=== PATIENT | female | born 1950 | race Caucasian/White ===

== ENCOUNTER 2020-01-01 11:38 | Outpatient (REF) | payer MEDICARE, SELFPAY | END 2020-01-01 11:39 | disposition home or self-care (01) | LOC: HO.LAB 11:38 | PROVIDERS: PCP Internal Medicine; Visit Provider Internal Medicine | DX: Z20.828 Contact with and (suspected) exposure to other viral communicable diseases (principal) | CPT/HCPCS: C9803; U0003 ==

== ENCOUNTER 2022-09-30 12:40 | Outpatient (AMB) | payer MEDICARE, SELFPAY ==
--- NOTE | 2022-09-30 12:57 | MHC.OFFVIS ---
Intake Vital Signs 09/30/22 12:58 Height 5 ft 2 in Weight 146 lb BMI 26.7 BP 124/70 Blood Pressure Location Lt brachial Position Sitting Pulse 84 Pulse Source Pulse Oximeter Pulse Oximetry (%) 96 Oxygen Delivery Method Room Air Intake Visit Reasons: COPD Supervisor Maintenance Required: No Allergies almond [ALMOND] Allergy (Unknown, Unverified 09/30/22 13:01) POSITIVE ALLERGY TEST CLASS 3 coconut [COCONUT] Allergy (Unknown, Unverified 09/30/22 13:01) POSITIVE ALLERGY TEST CLASS 3 nickel [NICKEL] Allergy (Unknown, Unverified 09/30/22 13:01) POSITIVE ALLERGY TEST peanut [PEANUT] Allergy (Unknown, Unverified 09/30/22 13:01) POSITIVE ALLERGY TEST CLASS 3 pecan nut [PECAN] Allergy (Unknown, Unverified 09/30/22 13:01) POSITIVE ALLERGY TEST CLASS 2 sesame seed [SESAME SEED] Allergy (Unknown, Unverified 09/30/22 13:01) POSITIVE ALLERGY TEST CLASS 3 PFSH Medical History (Updated 10/02/22 @ 20:17 by Stephen Dunn MD) Asthma Asthma-COPD overlap syndrome Chronic allergic rhinitis Glaucoma Social History (Updated 09/30/22 @ 13:02 by CASSIE Velazquez) Patient Tobacco Use Status: Former Tobacco user Tobacco use type: Cigarette Years Smoked: 20+ Years Review of Systems Const Denies fever(s) Eyes Denies change in vision ENT Reports nasal congestion Card Denies chest pain and Reports dyspnea on exertion Resp Reports cough, Reports dyspnea on exertion and Reports wheezing GI Denies abdominal pain Musc Reports no additional complaints Skin/Breast Denies rash Neuro Reports no additional complaints Endo Denies flushing Daniel/Lymph Denies lymphadenopathy Aller/Immun Reports wheezing Physical Exam Vital Signs: Last Vital Signs Pulse 84 09/30/22 12:58 BP 124/70 09/30/22 12:58 Pulse Ox 96 09/30/22 12:58 Oxygen Delivery Method Room Air 09/30/22 12:58 BMI result Body Mass Index 26.7 Const General: comfortable HEENT Head: Yes normocephalic Neck Neck: Yes supple Chest Chest palpation & inspection: normal inspection of the chest Resp Effort & Inspection: normal respiratory effort and prolonged expiratory phase Auscultation: wheezes and diminished lung sounds Cardio Rate: regular rate Rhythm: regular rhythm Heart sounds: S1 normal heart sound present and S2 normal heart sound present GI Palpation (GI): Soft to palpation Skin General skin exam: no rashes or lesions noted Extrem General: Yes no clubbing, cyanosis or edema Assessment & Plan Assessment & Plan (1) Asthma-COPD overlap syndrome: Code(s): J44.9 - Chronic obstructive pulmonary disease, unspecified (2) Asthma: Code(s): J45.909 - Unspecified asthma, uncomplicated (3) Chronic allergic rhinitis: Code(s): J30.9 - Allergic rhinitis, unspecified (4) Screening for lung cancer: Code(s): Z12.2 - Encounter for screening for malignant neoplasm of respiratory organs (5) Glaucoma: Code(s): H40.9 - Unspecified glaucoma Plan continue Wixela no LAMA due to Glaucome Bloodwork/allergy testing Add BUdesonide Add Xopenex Nebulizer provided PFTs referral to LDCT F/U 6-8 weeks Orders: Orders Rast Allergen 09/30/22 J30.9 - Allergic rhinitis, unspecified, J45.909 - Unspecified asthma, uncomplicated Complete Blood Count Auto Diff 09/30/22 J30.9 - Allergic rhinitis, unspecified, J45.909 - Unspecified asthma, uncomplicated Basic Metabolic Panel 09/30/22 J30.9 - Allergic rhinitis, unspecified, J45.909 - Unspecified asthma, uncomplicated Immunoglobulin E 09/30/22 J30.9 - Allergic rhinitis, unspecified, J45.909 - Unspecified asthma, uncomplicated Erythrocyte Sedimentation Rate 09/30/22 J30.9 - Allergic rhinitis, unspecified, J45.909 - Unspecified asthma, uncomplicated Referrals Thoracic Surgery Referral Z12.2 - Encounter for screening for malignant neoplasm of respiratory organs Medications: New budesonide 0.5 mg (2 mL) inhalation BID 30 days 120 mL 11RF J44.9 - Chronic obstructive pulmonary disease, unspecified levalbuterol HCl 1.25 mg (3 mL) inhalation BID 30 days 180 mL 0RF J44.9 - Chronic obstructive pulmonary disease, unspecified Coding Level of Care Code New Pt Level 4 (18018) Diagnoses Asthma-COPD overlap syndrome J44.9 Asthma J45.909 Chronic allergic rhinitis J30.9 Screening for lung cancer Z12.2 Glaucoma H40.9 Time Spent (min) 45
[2022-09-30 12:58] VITALS: BP 124/70; PULSE 84; O2SAT 96; BMI 26.7
== END 2022-09-30 13:37 | disposition home or self-care (01) ==
PROVIDERS: PCP Internal Medicine; Visit Provider Hospitalist
DX: J44.9 Chronic obstructive pulmonary disease, unspecified (principal); Z12.2 Encounter for screening for malignant neoplasm of respiratory organs; H40.9 Unspecified glaucoma
CPT/HCPCS: 99204

== ENCOUNTER 2022-09-30 12:40 | Outpatient (REF) | payer MEDICARE, SELFPAY ==
[2022-09-30 13:49] LABS: MANUAL DIFF FLAG NO
[2022-09-30 14:22] LABS: Basophils Percent Auto 0.3 % (0-2); Eosinophils Absolute Auto 0.1 X10*3/uL (0.0-0.4); Eosinophils Percent Auto 1.6 % (0-4); Hematocrit 38.5 % (37.0-47.0); Hemoglobin 11.9 g/dl (12.0-16.0); Imm Gran Abs Auto 0.03 X10*3/uL (0.00-0.03); Imm Gran Pct Auto 0.3 % (0.0-0.4); Lymphocytes Absolute Auto 1.9 X10*3/uL (1.2-4.9); Mean Corpuscular HGB Conc 30.9 g/dl (31.0-35.0); Mean Corpuscular Hemoglobin 24.3 pg (27.0-33.0); Mean Corpuscular Volume 78.6 fL (80.0-98.0); Mean Platelet Volume 9.9 fL (9.4-12.3); Monocytes Absolute Auto 0.5 X10*3/uL (0.1-1.2); Monocytes Percent Auto 5.2 % (2-11); Neutrophils Percent Auto 70.6 % (45-73); Platelet Count 331 X10*3/uL (160-400); Red Cell Distribution Width 17.4 % (11.0-16.0); White Blood Count 8.6 X10*3/uL (4.8-10.8)
[2022-09-30 14:59] LABS: Anion Gap 13 (12-20); Blood Urea Nitrogen 9 mg/dL (9-16); Calcium 9.8 mg/dL (8.4-10.2); Carbon Dioxide 23 mmol/L (22-29); Chloride 108 mmol/L (96-108); Estimated Glomerular Filt Rate > 60; Glucose Random 105 mg/dL (60-115); Potassium 3.4 mmol/L (3.3-5.1); Sodium 141 mmol/L (135-145)
[2022-09-30 15:11] LABS: Erythrocyte Sedimentation Rate 44 MM/HR (0-20)
[2022-10-01 10:04] LABS: Immunoglobulin E 267 kU/L (<OR=114)
== END 2022-09-30 12:41 | disposition home or self-care (01) ==
LOC: HO.LAB 12:40
PROVIDERS: PCP Internal Medicine; Visit Provider Hospitalist
DX: J45.909 Unspecified asthma, uncomplicated (principal); Z91.09 Other allergy status, other than to drugs and biological substances
CPT/HCPCS: 36415; 80048; 82785; 85025; 85652; 86003; 99202

== ENCOUNTER 2022-12-27 09:11 | Outpatient (REF) | payer OTHER, SELFPAY ==
--- NOTE | 2022-12-27 | PFT_ITS ---
Forced vital capacity 85%, FEV1 is 64%. FEV1/FVC ratio is 59. PDI84-46 21% and MVV 52%. Post bronchodilator therapy, there is significant improvement in LRY24-22, but not in other parameters. Total lung capacity 78%, and residual volume is 76%. Diffusion capacity is 72%. CONCLUSION: Restrictive pulmonary disorder, mild. Obstructive airway disorder, mainly involving the small airways, moderately severe. Partial reversibility after bronchodilator therapy is noted. These findings are suggestive of asthma/COPD syndrome. Clinical correlation is recommended. Dena Molina MD MSB/MODL / [id number]
== END 2022-12-27 09:12 | disposition home or self-care (01) ==
LOC: HO.RESP 09:11
PROVIDERS: PCP Internal Medicine; Visit Provider Hospitalist
DX: J45.909 Unspecified asthma, uncomplicated (principal)
CPT/HCPCS: 94010; 94727; 94729

== ENCOUNTER → 2022-12-27 10:29 | Outpatient (BNV) | payer OTHER, SELFPAY | PROVIDERS: PCP Internal Medicine; Visit Provider Internal Medicine | DX: J45.909 Unspecified asthma, uncomplicated (principal) | CPT/HCPCS: 94060; 94727; 94729 ==

== ENCOUNTER 2022-12-29 09:20 | Outpatient (AMB) | payer OTHER, SELFPAY ==
--- NOTE | 2022-12-29 09:22 | A.OFFVIS_ITS ---
Intake Vital Signs 12/29/22 09:26 Height 5 ft 2 in Weight 145 lb 15.136 oz BMI 26.7 Pulse 75 Pulse Source Pulse Oximeter Pulse Oximetry (%) 97 Oxygen Delivery Method Room Air Intake Visit Reasons: PFT Results Computer Numeric Control Setter Required: No Allergies almond [ALMOND] Allergy (Unknown, Unverified 12/29/22 09:24) POSITIVE ALLERGY TEST CLASS 3 coconut [COCONUT] Allergy (Unknown, Unverified 12/29/22:24) POSITIVE ALLERGY TEST CLASS 3 nickel [NICKEL] Allergy (Unknown, Unverified 12/29/22:24) POSITIVE ALLERGY TEST peanut [PEANUT] Allergy (Unknown, Unverified 12/29/22:24) POSITIVE ALLERGY TEST CLASS 3 pecan nut [PECAN] Allergy (Unknown, Unverified 12/29/22:) POSITIVE ALLERGY TEST CLASS 2 sesame seed [SESAME SEED] Allergy (Unknown, Unverified 12/29/22:) POSITIVE ALLERGY TEST CLASS 3 amoxicillin Allergy (Verified 12/29/22:) Swelling HPI HPI Comments History of Present Illness Details The patient is a 71 year woman with known history of asthma and also tobacco dependency in the past. The patient has significant allergies. She has been following closely with allergy immunology. The patient has significant allergies to foods in addition to environmental allergies. She has been on respiratory therapy. The patient continues to be symptomatic with frequent shortness of breath chest tightness and wheezing. Moderate severity. Recently the patient did have a reaction. She was sent to the hospital for further care. Current the patient has been Wixela. She uses a rescue inhaler on a daily basis. She is feeling well today although she still has wheezing and chest tightness. The patient is a nebulizer. Will start her on nebulized therapy. With a history of glaucoma will can hold off on long-acting muscarinic antagonist until more information is gathered from the datastage developer. The patient is a former smoker. She quit smoking between 5 to 8 years ago. She is a candidate for the lung cancer screening program. Will go ahead and refer her at this time. 12/29/2022 the patient is here for pulmo nary follow-up visit. The patient has been feeling better. She has been using the combination inhaler and also has been using the budesonide. although she has been feeling better he still complains of daily episodes of wheezing and chest tightness. She does use her rescue inhaler on a daily basis for that reason. She did have her pulmonary function studies demonstrating significant small airways disease consistent with severe asthma and also has a mild obstruction also consistent with her uncontrolled asthma. 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 Still has significant asthma phenotype. Her allergy testing was very abnormal with an elevated IgE and significant allergies to both environmental allergens and foods. based on her uncontrolled asthma on maximum respiratory therapy will go ahead and recommend she start Xolair. The patient already has not EpiPen she knows how to use it. Based on her weight and her IgE level will go ahead and start with 300 mg once a month. The patient may need to increase that to every 2 weeks if she continues to be symptomatic however. She did not attend the lung cancer screening visit. Her daughter had gotten sick and she could not bring her to the appointment. Will go ahead and reschedule that appointment she can follow-up and get her lung cancer screening done. Will follow-up in 3-4 months to assess her progress on the biologic therapy. [facility] Medical History (Updated 12/29/22 @ 21:22 by Stephen Dunn MD) Aortic valve stenosis Hypertension Hyperlipidemia Asthma-COPD overlap syndrome Asthma Chronic allergic rhinitis Personal history of nicotine dependence GERD (gastroesophageal reflux disease) NITIN (iron deficiency anemia) Thrombocytopenia Vitamin B 12 deficiency Vitamin D deficiency Fatty liver Hiatal hernia Multiple food allergies Osteopenia (~2005) Glaucoma Surgical History (Updated 12/12/22 @ 12:45 by Navya Vyas PA-C) History of colonoscopy Family History (Updated 12/19/22 @ 11:03 by Navya Vyas PA-C) Sister Breast cancer Father No problems noted. Mother No problems noted. Social History (Updated 09/30/22 @ 13:02 by CASSIE Velazquez) Patient Tobacco Use Status: Former Tobacco user Tobacco use type: Cigarette Years Smoked: 20+ Years Review of Systems Const Denies fever(s) Eyes Denies change in vision ENT Reports nasal congestion Card Denies chest pain and Reports dyspnea on exertion Resp Reports cough, Reports dyspnea on exertion and Reports wheezing GI Denies abdominal pain Musc Reports no additional complaints Skin/Breast Denies rash Neuro Reports no additional complaints Endo Denies flushing Daniel/Lymph Denies lymphadenopathy Aller/Immun Reports wheezing Physical Exam Vital Signs: Last Vital Signs Pulse 75 12/29/22 09:26 Pulse Ox 97 12/29/22 09:26 Oxygen Delivery Method Room Air 12/29/22 09:26 BMI result Body Mass Index 26.7 Const General: comfortable HEENT Head: Yes normocephalic Neck Neck: Yes supple Chest Chest palpation & inspection: normal inspection of the chest Resp Effort & Inspection: normal respiratory effort and prolonged expiratory phase Auscultation: wheezes and diminished lung sounds Cardio Rate: regular rate Rhythm: regular rhythm Heart sounds: S1 normal heart sound present and S2 normal heart sound present GI Palpation (GI): Soft to palpation Skin General skin exam: no rashes or lesions noted Extrem General: Yes no clubbing, cyanosis or edema Assessment & Plan Assessment & Plan (1) Asthma-COPD overlap syndrome: Code(s): J44.9 - Chronic obstructive pulmonary disease, unspecified (2) Asthma: Code(s): J45.909 - Unspecified asthma, uncomplicated Qualifiers: Asthma severity: severe Asthma persistence: persistent Asthma complication type: uncomplicated Qualified Code(s): J45.50 - Severe persistent asthma, uncomplicated (3) Chronic allergic rhinitis: Code(s): J30.9 - Allergic rhinitis, unspecified (4) Glaucoma: Code(s): H40.9 - Unspecified glaucoma Plan continue Wixela no LAMA due to Glaucome start Xolair 300mg [id number] BUdesonide continue Add Xopenex Nebulizer provided referral to LDCT F/U 3-4 months Coding Level of Care Code Est Pt Level 4 (60920) Diagnoses Asthma-COPD overlap syndrome J44.9 Severe persistent asthma without complication J45.50 Asthma severity: severe Asthma persistence: persistent Asthma complication type: uncomplicated Chronic allergic rhinitis J30.9 Glaucoma H40.9 Time Spent (min) 17
[2022-12-29 09:26] VITALS: PULSE 75; O2SAT 97; BMI 26.7
== END 2022-12-29 09:50 | disposition home or self-care (01) ==
PROVIDERS: PCP Internal Medicine; Visit Provider Hospitalist
DX: J44.9 Chronic obstructive pulmonary disease, unspecified (principal); J45.50 Severe persistent asthma, uncomplicated; J30.9 Allergic rhinitis, unspecified; H40.9 Unspecified glaucoma
CPT/HCPCS: 99214

== ENCOUNTER → 2022-12-29 09:20 | Outpatient (BNVA) | payer OTHER, SELFPAY | PROVIDERS: PCP Internal Medicine; Visit Provider Hospitalist | DX: J44.9 Chronic obstructive pulmonary disease, unspecified (principal); J45.50 Severe persistent asthma, uncomplicated; J30.9 Allergic rhinitis, unspecified; H40.9 Unspecified glaucoma | CPT/HCPCS: 99212 ==

== ENCOUNTER 2023-01-20 10:08 | Outpatient (AMB) | payer OTHER, SELFPAY ==
--- NOTE | 2023-01-20 10:23 | MHC.OFFVIS ---
Intake Intake Visit Reasons: LDCT Allergies almond [ALMOND] Allergy (Unknown, Unverified 12/29/22 09:24) POSITIVE ALLERGY TEST CLASS 3 coconut [COCONUT] Allergy (Unknown, Unverified 12/29/22 09:24) POSITIVE ALLERGY TEST CLASS 3 nickel [NICKEL] Allergy (Unknown, Unverified 12/29/22 09:24) POSITIVE ALLERGY TEST peanut [PEANUT] Allergy (Unknown, Unverified 12/29/22 09:24) POSITIVE ALLERGY TEST CLASS 3 pecan nut [PECAN] Allergy (Unknown, Unverified 12/29/22 09:24) POSITIVE ALLERGY TEST CLASS 2 sesame seed [SESAME SEED] Allergy (Unknown, Unverified 12/29/22 09:24) POSITIVE ALLERGY TEST CLASS 3 amoxicillin Allergy (Verified 12/29/22 09:24) Swelling HPI HPI Comments History of Present Illness Details Azul is a pleasant 72 year old female, former smoker with a 37+ PYH, quit 5 years ago. Patient has smoked since age 14 for 30 years at 1-1.5 ppd Denies marijuana use. Denies exposure to chemicals or substances like asbestos. Reports second hand smoke exposure. Reports sister had a history of lung cancer. Denies personal history of cancers. Denies chest CT in last year. Denies recent travel outside the [place]. Reports testing positive for COVID in 2020. Admits receiving COVID Vaccine x 2. Denies fever, chills, chest pain, new cough, hemoptysis or unintentional weight loss. Lung Cancer Screening Questionnaire reviewed with patient by provider. Shared Decision Making Completed. Discussed in detail with patient, the risk versus benefit of LDCT screening. Patient in agreement of proceeding with scan. [facility] Medical History (Updated 12/29/22 @ 21:22 by Stephen Dunn MD) Aortic valve stenosis Hypertension Hyperlipidemia Asthma-COPD overlap syndrome Asthma Chronic allergic rhinitis Personal history of nicotine dependence GERD (gastroesophageal reflux disease) NITIN (iron deficiency anemia) Thrombocytopenia Vitamin B 12 deficiency Vitamin D deficiency Fatty liver Hiatal hernia Multiple food allergies Osteopenia (~2005) Glaucoma Surgical History (Updated 12/12/22 @ 12:45 by Navya Vyas PA-C) History of colonoscopy Family History (Updated 01/20/23 @ 12:03 by Noreen Vo NP) Sister Breast cancer Father No problems noted. Mother No problems noted. Sister Lung cancer Social History (Updated 01/20/23 @ 12:04 by Noreen Vo NP) Patient Tobacco Use Status: Former Tobacco user Quit Date: 5 years ago Tobacco use type: Cigarette Cigarette Packs Per Day: 1.25 Years Smoked: 30 Assessment & Plan Assessment & Plan (1) Personal history of nicotine dependence: Comment: (former smoker) Code(s): Z87.891 - Personal history of nicotine dependence Plan Shared decision-making visit completed today in office. This patient meets criteria for LDCT for lung cancer screening purposes and is asymptomatic. Offered smoking cessation. Patient has been scheduled for a low dose chest CT for screening purposes at [facility]. We discussed how the results will be obtained depending on CT findings. RADS 1 and RADS 2 will receive a letter with results and will follow up for annual LDCT. Patient informed they will be contacted at later date to schedule upcoming LDCT scan. RADS 3 and RADS 4 will receive a telephone call, or an office visit after reviewing case at our Lung Cancer Conference to determine when the next LDCT will be scheduled or further interventions that may be needed. Discussed importance of screening program and compliance with yearly LDCT scan as scheduled. Risks, benefits, and alternatives were discussed in detail and patient agrees to proceed. Risks discussed include but are not limited to: radiation exposure and possibility of additional intervention for benign disease. Benefits include detection of lung cancer at an early stage. A copy of today's visit and LDCT results will be sent to patient's PCP. Incidental findings on LDCT are PCP's responsibility. If there are incidental findings, our office will ensure that PCP office is aware of these findings. All questions were answered and patient is in agreement of plan. Coding Level of Care Code Lung Cancer Screening G0296 Diagnoses Personal history of nicotine dependence Z87.891
== END 2023-01-20 10:32 | disposition home or self-care (01) ==
PROVIDERS: PCP Internal Medicine; Visit Provider Nurse Practitioner Family
DX: Z87.891 Personal history of nicotine dependence (principal)
CPT/HCPCS: G0296

== ENCOUNTER 2023-01-20 10:34 | Outpatient (REF) | payer OTHER, SELFPAY ==
--- NOTE | ~2023-01-20 | CT_ITS ---
EXAMINATION: CT CHEST LOW-DOSE SCREENING WITHOUT CONTRAST HISTORY: Asymptomatic patient meeting criteria for lung screening. PATIENT PACK-YEAR HISTORY: 30 Current Smoker: No If former smoker, years since quittin COMPARISON: None available. TECHNIQUE: Multidetector volumetric non-contrast CT imaging of the chest was performed using low dose screening CT technique. Axial thin section 0.625 mm reformations in soft tissue and lung windows were obtained. Sagittal and coronal reformations were obtained. Axial MIP images were also created and reviewed. RECONSTRUCTED WIDTH: 1.25 mm x 1.25 mm TOTAL EXAM DLP: 42 mGy-cm CTDIvol: 1.05 L mGy FINDINGS: LUNGS: Mild centrilobular emphysema. No suspicious pulmonary nodule. No focal consolidation. Central airways are patent. PLEURA: No pleural effusion. LYMPH NODES: No bulky mediastinal, hilar or axillary lymphadenopathy. MEDIASTINUM: Great vessels are of normal caliber. Heart size is normal. No pericardial effusion. CORONARY ARTERY CALCIFICATIONS: Moderate. CHEST WALL/BREASTS: No acute abnormality. UPPER ABDOMEN: This study was performed without contrast and with lower than standard dose, reducing the sensitivity for detection of small lesions in the upper abdomen. Large hiatal hernia. OSSEOUS STRUCTURES: No destructive bone lesions. CT/CT lung screening IMPRESSION: No suspicious pulmonary nodule. LUNG-RADS CATEGORY ASSESSMENT: 1. Negative. No nodules or definitely benign nodules. Continue annual screening with low-dose CT in 12 months. Probability of malignancy less than 1%. INCIDENTAL FINDINGS (S CATEGORY): Finding: No incidental findings. Significance category: Normal or normal variant. RECOMMENDATION: Low dose lung CT. overall in 1 year. Visual estimate of coronary calcified plaque burden: Moderate. However, this exam cannot replace a dedicated cardiac CT calcium score for accurate assessment. LUNG-RADS CATEGORY: 1 -- NEGATIVE
== END 2023-01-20 10:35 | disposition home or self-care (01) ==
LOC: HO.CT 10:34
PROVIDERS: PCP Internal Medicine; Visit Provider Physician Assistant Medical
DX: Z12.2 Encounter for screening for malignant neoplasm of respiratory organs (principal); Z87.891 Personal history of nicotine dependence
CPT/HCPCS: 71271; G0296

== ENCOUNTER 2023-02-15 09:07 | Outpatient (REF) | payer OTHER, SELFPAY | END 2023-02-15 09:08 | disposition home or self-care (01) | LOC: HO.MDS 09:07 | PROVIDERS: Visit Provider Hospitalist | DX: J45.50 Severe persistent asthma, uncomplicated (principal) | CPT/HCPCS: 96372 ==

== ENCOUNTER 2023-03-15 08:57 | Outpatient (REF) | payer OTHER, SELFPAY | END 2023-03-15 08:58 | disposition home or self-care (01) | LOC: HO.MDS 08:57 | PROVIDERS: Visit Provider Hospitalist | DX: J45.50 Severe persistent asthma, uncomplicated (principal) | CPT/HCPCS: 96372; J2357 ==

== ENCOUNTER 2023-03-31 09:48 | Outpatient (AMB) | payer OTHER, SELFPAY ==
[2023-03-31 09:51] VITALS: BP 138/58; PULSE 72; O2SAT 96; BMI 27.0
--- NOTE | 2023-03-31 09:51 | MHC.OFFVIS ---
Intake Vital Signs 03/31/23 09:51 Height 5 ft 2 in Weight 147 lb 11.355 oz BMI 27.0 BP 138/58 L Blood Pressure Location Rt brachial Position Sitting Pulse 72 Pulse Source Pulse Oximeter Pulse Oximetry (%) 96 Oxygen Delivery Method Room Air Intake Visit Reasons: COPD Intake Note: pt is here for follow up and states she is feeling fine. pt did have 2nd xolair injection and woke up the next day lip swollen, went to ER and sent home, back the next day for full face swelling. not sure if related. Solids Control Technician Required: No Allergies almond [ALMOND] Allergy (Unknown, Unverified 03/31/23 09:55) POSITIVE ALLERGY TEST CLASS 3 coconut [COCONUT] Allergy (Unknown, Unverified 03/31/23 09:55) POSITIVE ALLERGY TEST CLASS 3 nickel [NICKEL] Allergy (Unknown, Unverified 03/31/23 09:55) POSITIVE ALLERGY TEST peanut [PEANUT] Allergy (Unknown, Unverified 03/31/23 09:55) POSITIVE ALLERGY TEST CLASS 3 pecan nut [PECAN] Allergy (Unknown, Unverified 03/31/23 09:55) POSITIVE ALLERGY TEST CLASS 2 sesame seed [SESAME SEED] Allergy (Unknown, Unverified 03/31/23 09:55) POSITIVE ALLERGY TEST CLASS 3 amoxicillin Allergy (Verified 03/31/23 09:55) Swelling HPI HPI Comments History of Present Illness Details The patient is a 72 year woman with known history of asthma and also tobacco dependency in the past. The patient has significant allergies. She has been following closely with allergy immunology. The patient has significant allergies to foods in addition to environmental allergies. She has been on respiratory therapy. The patient continues to be symptomatic with frequent shortness of breath chest tightness and wheezing. Moderate severity. Recently the patient did have a reaction. She was sent to the hospital for further care. Current the patient has been Wixela. She uses a rescue inhaler on a daily basis. She is feeling well today although she still has wheezing and chest tightness. The patient is a nebulizer. Will start her on nebulized therapy. 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 The patient is a former smoker. She quit smoking between 5 to 8 years ago. She is a candidate for the lung cancer screening program. Will go ahead and refer her at this time. 12/29/2022 the patient is here for pulmonary follow-up visit. The patient has been feeling better. She has been using the combination inhaler and also has been using the budesonide. although she has been feeling better he still complains of daily episodes of wheezing and chest tightness. She does use her rescue inhaler on a daily basis for that reason. She did have her pulmonary function studies demonstrating significant small airways disease consistent with severe asthma and also has a mild obstruction also consistent with her uncontrolled asthma. 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 Still has significant asthma phenotype. Her allergy testing was very abnormal with an elevated IgE and significant allergies to both environmental allergens and foods. based on her uncontrolled asthma on maximum respiratory therapy will go ahead and recommend she start Xolair. The patient already has not EpiPen she knows how to use it. Based on her weight and her IgE level will go ahead and start with 300 mg once a month. The patient may need to increase that to every 2 weeks if she continues to be symptomatic however. She did not attend the lung cancer screening visit. Her daughter had gotten sick and she could not bring her to the appointment. Will go ahead and reschedule that appointment she can follow-up and get her lung cancer screening done. Will follow-up in 3-4 months to assess her progress on the biologic therapy. 03/31/2023 the patient is here for a pulmonary follow-up visit. She had been doing very well. She did start the Xolair injections and they were very affecting beneficial. Although then the patient had a an allergic reaction where she was developing some angioedema. Her lips have been swollen. Denied any stridor. Although she did go to the ER. She did receive epinephrine at that point. After that was unclear if the Xolair could have been the culprit. Therefore she has been holding the Xolair. Based on her significant reaction I do believe that the Xolair could be potentially exacerbating her allergic reactions. Therefore, best to stop the Xolair. She is completed the prednisone taper. The patient has required multiple prednisone tapers because her significant asthma. The patient has uncontrolled asthma otherwise. She did much better on the Xolair. The patient has an elevated IgE and although her eosinophils are normal she has been on prednisone throughout so therefore difficult to really measure her eosinophils based on her uncontrolled asthma. Therefore, do believe Dupixent would be a better option for her. The patient does benefit from biologic therapy with Dupixent in view of her significant eczema in addition to her severe asthma. In the meantime she is going to continue on the Wixela in the other respiratory medications. [facility] Medical History (Updated 12/29/22 @ 21:22 by Stephen Dunn MD) Aortic valve stenosis Hypertension Hyperlipidemia Asthma-COPD overlap syndrome Asthma Chronic allergic rhinitis Personal history of nicotine dependence GERD (gastroesophageal reflux disease) NITIN (iron deficiency anemia) Thrombocytopenia Vitamin B 12 deficiency Vitamin D deficiency Fatty liver Hiatal hernia Multiple food allergies Osteopenia (~2005) Glaucoma Surgical History (Updated 12/12/22 @ 12:45 by Navya Vyas PA-C) History of colonoscopy Family History (Updated 01/20/23 @ 12:03 by Noreen Vo NP) Sister Breast cancer Father No problems noted. Mother No problems noted. Sister Lung cancer Social History Patient Tobacco Use Status: Former Tobacco user Quit Date: 5 years ago Tobacco use type: Cigarette Cigarette Packs Per Day: 1.25 Years Smoked: 30 Review of Systems Const Denies fever(s) Eyes Denies change in vision ENT Reports as per HPI and Reports nasal congestion Card Denies chest pain and Reports dyspnea on exertion Resp Reports cough, Reports dyspnea on exertion and Reports wheezing GI Denies abdominal pain Musc Reports no additional complaints Skin/Breast Denies rash Neuro Reports no additional complaints Endo Denies flushing Daniel/Lymph Denies lymphadenopathy Aller/Immun Reports wheezing Physical Exam Vital Signs: Last Vital Signs Pulse 72 03/31/23 09:51 BP 138/58 L 03/31/23 09:51 Pulse Ox 96 03/31/23 09:51 Oxygen Delivery Method Room Air 03/31/23 09:51 BMI result Body Mass Index 27.0 Const General: comfortable HEENT Head: Yes normocephalic Neck Neck: Yes supple Chest Chest palpation & inspection: normal inspection of the chest Resp Effort & Inspection: normal respiratory effort and prolonged expiratory phase Auscultation: no wheezes and diminished lung sounds Cardio Rate: regular rate Rhythm: regular rhythm Heart sounds: S1 normal heart sound present and S2 normal heart sound present GI Palpation (GI): Soft to palpation Skin General skin exam: no rashes or lesions noted Extrem General: Yes no clubbing, cyanosis or edema Assessment & Plan Assessment & Plan (1) Asthma: Code(s): J45.909 - Unspecified asthma, uncomplicated Qualifiers: Asthma severity: severe Asthma persistence: persistent Asthma complication type: uncomplicated Qualified Code(s): J45.50 - Severe persistent asthma, uncomplicated (2) Chronic allergic rhinitis: Code(s): J30.9 - Allergic rhinitis, unspecified (3) Glaucoma: Code(s): H40.9 - Unspecified glaucoma (4) Asthma-COPD overlap syndrome: Code(s): J44.9 - Chronic obstructive pulmonary disease, unspecified Plan continue Wixela no LAMA due to Glaucoma YOGESH as needed Epi pen stop Xolair 300mg [id number] due to allergic reaction start Dupixent BUdesonide continue Add Xopenex Nebulizer provided LDCT F/U 3-4 months Coding Level of Care Code Est Pt Level 4 (72411) Diagnoses Severe persistent asthma without complication J45.50 Asthma severity: severe Asthma persistence: persistent Asthma complication type: uncomplicated Chronic allergic rhinitis J30.9 Glaucoma H40.9 Asthma-COPD overlap syndrome J44.9 Time Spent (min) 17
== END 2023-03-31 10:21 | disposition home or self-care (01) ==
PROVIDERS: PCP Internal Medicine; Visit Provider Hospitalist
DX: J45.50 Severe persistent asthma, uncomplicated (principal); J30.9 Allergic rhinitis, unspecified; H40.9 Unspecified glaucoma; J44.9 Chronic obstructive pulmonary disease, unspecified
CPT/HCPCS: 99214

== ENCOUNTER → 2023-03-31 09:48 | Outpatient (BNVA) | payer OTHER, SELFPAY | PROVIDERS: PCP Internal Medicine; Visit Provider Hospitalist | DX: J45.50 Severe persistent asthma, uncomplicated (principal); J30.9 Allergic rhinitis, unspecified; J44.9 Chronic obstructive pulmonary disease, unspecified; H40.9 Unspecified glaucoma | CPT/HCPCS: 99212 ==

== ENCOUNTER 2023-04-27 12:19 | Outpatient (REF) | payer OTHER, SELFPAY ==
[2023-04-27 13:05] LABS: MANUAL DIFF FLAG NO
[2023-04-27 14:14] LABS: Basophils Percent Auto 0.5 % (0-2); Eosinophils Percent Auto 0.4 % (0-4); Hematocrit 36.3 % (37.0-47.0); Hemoglobin 11.3 g/dl (12.0-16.0); Imm Gran Abs Auto 0.02 X10*3/uL (0.00-0.03); Imm Gran Pct Auto 0.3 % (0.0-0.4); Lymphocytes Absolute Auto 1.6 X10*3/uL (1.2-4.9); Lymphocytes Percent Auto 20.3 % (20-40); Mean Corpuscular HGB Conc 31.1 g/dl (31.0-35.0); Mean Corpuscular Hemoglobin 23.8 pg (27.0-33.0); Mean Corpuscular Volume 76.4 fL (80.0-98.0); Mean Platelet Volume 10.2 fL (9.4-12.3); Monocytes Absolute Auto 0.7 X10*3/uL (0.1-1.2); Monocytes Percent Auto 8.4 % (2-11); Neutrophils Absolute Auto 5.5 x10*3/uL (2.0-8.3); Neutrophils Percent Auto 70.1 % (45-73); Platelet Count 326 X10*3/uL (160-400); Red Blood Count 4.75 X10*6/uL (4.20-5.50); White Blood Count 7.8 X10*3/uL (4.8-10.8)
[2023-04-27 15:05] LABS: Erythrocyte Sedimentation Rate 45 MM/HR (0-20)
[2023-04-28 21:13] LABS: IgA 364 mg/dL (70-320); IgG 810 mg/dL (600-1540); IgM 74 mg/dL (50-300)
[2023-05-01 19:48] LABS: Immunoglobulin E 548 kU/L (<OR=114)
== END 2023-04-27 12:20 | disposition home or self-care (01) ==
LOC: HO.LAB 12:19
PROVIDERS: Visit Provider Hospitalist
DX: J40 Bronchitis, not specified as acute or chronic (principal); J44.9 Chronic obstructive pulmonary disease, unspecified; R05.9 Cough, unspecified; J02.9 Acute pharyngitis, unspecified; J45.51 Severe persistent asthma with (acute) exacerbation; J30.9 Allergic rhinitis, unspecified; H40.9 Unspecified glaucoma
CPT/HCPCS: 36415; 82784; 82785; 85025; 85652; 99212

== ENCOUNTER 2023-04-27 12:40 | Outpatient (AMB) | payer OTHER, SELFPAY ==
--- NOTE | 2023-04-27 13:06 | MHC.OFFVIS ---
Intake Vital Signs 04/27/23 13:07 Height 5 ft 2 in Weight 147 lb 11.355 oz BMI 27.0 Pulse 76 Pulse Source Pulse Oximeter Pulse Oximetry (%) 97 Oxygen Delivery Method Room Air Intake Visit Reasons: Worsening Cough Reconciliation Coordinator Required: No Allergies almond [ALMOND] Allergy (Unknown, Unverified 04/27/23 13:08) POSITIVE ALLERGY TEST CLASS 3 coconut [COCONUT] Allergy (Unknown, Unverified 04/27/23 13:08) POSITIVE ALLERGY TEST CLASS 3 nickel [NICKEL] Allergy (Unknown, Unverified 04/27/23 13:08) POSITIVE ALLERGY TEST peanut [PEANUT] Allergy (Unknown, Unverified 04/27/23 13:08) POSITIVE ALLERGY TEST CLASS 3 pecan nut [PECAN] Allergy (Unknown, Unverified 04/27/23 13:08) POSITIVE ALLERGY TEST CLASS 2 sesame seed [SESAME SEED] Allergy (Unknown, Unverified 04/27/23 13:08) POSITIVE ALLERGY TEST CLASS 3 amoxicillin Allergy (Verified 04/27/23 13:08) Swelling HPI HPI Comments History of Present Illness Details The patient is a 72 year woman with known history of asthma and also tobacco dependency in the past. The patient has significant allergies. She has been following closely with allergy immunology. The patient has significant allergies to foods in addition to environmental allergies. She has been on respiratory therapy. The patient continues to be symptomatic with frequent shortness of breath chest tightness and wheezing. Moderate severity. Recently the patient did have a reaction. She was sent to the hospital for further care. Current the patient has been Wixela. She uses a rescue inhaler on a daily basis. She is feeling well today although she still has wheezing and chest tightness. The patient is a nebulizer. Will start her on nebulized therapy. 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 The patient is a former smoker. She quit smoking between 5 to 8 years ago. She is a candidate for the lung cancer screening program. Will go ahead and refer her at this time. 12/29/2022 the patient is here for pulmonary follow-up visit. The patient has been feeling better. She has been using the combination inhaler and also has been using the budesonide. although she has been feeling better he still complains of daily episodes of wheezing and chest tightness. She does use her rescue inhaler on a daily basis for that reason. She did have her pulmonary function studies demonstrating significant small airways disease consistent with severe asthma and also has a mild obstruction also consistent with her uncontrolled asthma. 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 Still has significant asthma phenotype. Her allergy testing was very abnormal with an elevated IgE and significant allergies to both environmental allergens and foods. based on her uncontrolled asthma on maximum respiratory therapy will go ahead and recommend she start Xolair. The patient already has not EpiPen she knows how to use it. Based on her weight and her IgE level will go ahead and start with 300 mg once a month. The patient may need to increase that to every 2 weeks if she continues to be symptomatic however. She did not attend the lung cancer screening visit. Her daughter had gotten sick and she could not bring her to the appointment. Will go ahead and reschedule that appointment she can follow-up and get her lung cancer screening done. Will follow-up in 3-4 months to assess her progress on the biologic therapy. 03/31/2023 the patient is here for a pulmonary follow-up visit. She had been doing very well. She did start the Xolair injections and they were very affecting beneficial. Although then the patient had a an allergic reaction where she was developing some angioedema. Her lips have been swollen. Denied any stridor. Although she did go to the ER. She did receive epinephrine at that point. After that was unclear if the Xolair could have been the culprit. Therefore she has been holding the Xolair. Based on her significant reaction I do believe that the Xolair could be potentially exacerbating her allergic reactions. Therefore, best to stop the Xolair. She is completed the prednisone taper. The patient has required multiple prednisone tapers because her significant asthma. The patient has uncontrolled asthma otherwise. She did much better on the Xolair. The patient has an elevated IgE and although her eosinophils are normal she has been on prednisone throughout so therefore difficult to really measure her eosinophils based on her uncontrolled asthma. Therefore, do believe Dupixent would be a better option for her. The patient does benefit from biologic therapy with Dupixent in view of her significant eczema in addition to her severe asthma. In the meantime she is going to continue on the Wixela in the other respiratory medications. 04/27/2023 the patient is here for sick visit. She started developing sore throat. That started developing a cough. The cough has become more congested. She has been also having more shortness of breath with activity. She has been using her nebulizer more often. Therefore she came in today. She did get her blood work including her CBC with differential and IgE level. Again, the patient does have severe persistent asthma due to her allergies and also has a history of eczema. Will try to get her on Dupixent since she had a reaction to Xolair most likely. Therefore, at this point will go ahead and start her on doxycycline. The patient also can start prednisone if no better. She will continue with respiratory treatments. If the patient is no better she will call for further evaluation. I do not believe x-rays needed at this time although if her symptoms do not improve she can always come in for one. 04/27/2023 the patient is here for sick visit. The patient started developing worsening cough chest congestion and a sore throat. Ultimately started developing some wheezing. Symptoms started about a week ago. Denies any fevers or chills or any arthralgias or myalgias. Does not tolerate the fever. No sick contacts in the home. Which still trying to get her on biologic therapy. We have taken off Xolair because of suspicious reaction. In the meantime she does have some rhonchi and wheezing on examination. Will go ahead and send her antibiotics and if she has not better she can start some prednisone as well. She can also use her nebulizer several times a day. The patient should also use a cough expectorate. I am going to go ahead and send the medication to the pharmacy. If the patient is no better she will call the office. In the meantime she is going to have blood work done in order for us to appeal the denial for the Dupixent biologic therapy injection. [facility] Medical History (Updated 04/28/23 @ 12:54 by Stephen Dunn MD) Bronchitis Aortic valve stenosis Hypertension Hyperlipidemia Asthma-COPD overlap syndrome Asthma Chronic allergic rhinitis Personal history of nicotine dependence GERD (gastroesophageal reflux disease) NITIN (iron deficiency anemia) Thrombocytopenia Vitamin B 12 deficiency Vitamin D deficiency Fatty liver Hiatal hernia Multiple food allergies Osteopenia (~2005) Glaucoma Surgical History (Updated 12/12/22 @ 12:45 by Navya Vyas PA-C) History of colonoscopy Family History (Updated 01/20/23 @ 12:03 by Noreen Vo NP) Sister Breast cancer Father No problems noted. Mother No problems noted. Sister Lung cancer Social History Patient Tobacco Use Status: Former Tobacco user Quit Date: 5 years ago Tobacco use type: Cigarette Cigarette Packs Per Day: 1.25 Years Smoked: 30 Review of Systems Const Denies fever(s) Eyes Denies change in vision ENT Reports as per HPI, Reports nasal congestion and Reports sore throat Card Denies chest pain and Reports dyspnea on exertion Resp Reports change in phlegm color, Reports chest congestion, Reports cough, Reports dyspnea on exertion and Reports wheezing GI Denies abdominal pain Musc Reports no additional complaints Skin/Breast Denies rash Neuro Reports no additional complaints Endo Denies flushing Daniel/Lymph Denies lymphadenopathy Aller/Immun Reports wheezing Physical Exam Vital Signs: Last Vital Signs Pulse 76 04/27/23 13:07 Pulse Ox 97 04/27/23 13:07 Oxygen Delivery Method Room Air 04/27/23 13:07 BMI result Body Mass Index 27.0 Const General: comfortable HEENT Head: Yes normocephalic Neck Neck: Yes supple Chest Chest palpation & inspection: normal inspection of the chest Resp Effort & Inspection: normal respiratory effort and prolonged expiratory phase Auscultation: rhonchi, wheezes and diminished lung sounds Cardio Rate: regular rate Rhythm: regular rhythm Heart sounds: S1 normal heart sound present and S2 normal heart sound present GI Palpation (GI): Soft to palpation Skin General skin exam: no rashes or lesions noted Extrem General: Yes no clubbing, cyanosis or edema Assessment & Plan Assessment & Plan (1) Asthma: Code(s): J45.909 - Unspecified asthma, uncomplicated Qualifiers: Asthma severity: severe Asthma persistence: persistent Asthma complication type: with acute exacerbation Qualified Code(s): J45.51 - Severe persistent asthma with (acute) exacerbation (2) Chronic allergic rhinitis: Code(s): J30.9 - Allergic rhinitis, unspecified (3) Glaucoma: Code(s): H40.9 - Unspecified glaucoma Qualifiers: Glaucoma type: unspecified Laterality: bilateral Qualified Code(s): H40.9 - Unspecified glaucoma (4) Asthma-COPD overlap syndrome: Code(s): J44.9 - Chronic obstructive pulmonary disease, unspecified (5) Bronchitis: Code(s): J40 - Bronchitis, not specified as acute or chronic Plan start Doxycycline start prednisone taper if no better bloodwork continue Wixela no LAMA due to Glaucoma YOGESH as needed Epi pen stop Xolair 300mg Q1polbf due to allergic reaction requesting Dupixent BUdesonide continue Xopenex Nebulizer provided LDCT F/U 3-4 months Orders: Orders Immunoglobulins,IgG IgA IgM 04/27/23 J40 - Bronchitis, not specified as acute or chronic Medications: New doxycycline monohydrate 100 mg PO BID 14 days 28 tabs 0RF prednisone PO daily; Take 2 tabs daily x 5 days, then 1 tablet daily x 5 days 10 days 15 tabs 0RF albuterol sulfate 2.5 mg (3 mL) inhalation Q4H 30 days PRN 360 mL 11RF shortness of breath or wheezing Coding Level of Care Code Est Pt Level 4 (32800) Diagnoses Severe persistent asthma with acute exacerbation J45.51 Asthma severity: severe Asthma persistence: persistent Asthma complication type: with acute exacerbation Chronic allergic rhinitis J30.9 Glaucoma of both eyes, unspecified glaucoma type H40.9 Glaucoma type: unspecified Laterality: bilateral Asthma-COPD overlap syndrome J44.9 Bronchitis J40 Time Spent (min) 17
[2023-04-27 13:07] VITALS: PULSE 76; O2SAT 97; BMI 27.0
== END 2023-04-27 13:21 | disposition home or self-care (01) ==
PROVIDERS: PCP Internal Medicine; Visit Provider Hospitalist
DX: J45.51 Severe persistent asthma with (acute) exacerbation (principal); J30.9 Allergic rhinitis, unspecified; H40.9 Unspecified glaucoma; J44.9 Chronic obstructive pulmonary disease, unspecified; J40 Bronchitis, not specified as acute or chronic
CPT/HCPCS: 99214

== ENCOUNTER 2023-05-19 13:45 | Outpatient (REF) | payer OTHER, SELFPAY ==
--- NOTE | ~2023-05-19 | US_ITS ---
EXAMINATION: US PELVIS CLINICAL INFORMATION: Mass of the uterine adnexa. COMPARISON: CT abdomen and pelvis 08/11/2016. TECHNIQUE: Ultrasound of the pelvis is performed using only transabdominal transducer along with Doppler. Patient refused transvaginal scanning. FINDINGS: Uterus: The uterus is anteverted and measures 5.2 x 2.4 x 4.4 cm. The double wall endometrial thickness is 4 mm. A small amount of fluid is present in the endometrial canal. The uterus is smooth in contour and has normal myometrial echogenicity. No visible fibroid. Adnexa: Both ovaries are visualized. There is normal color flow to the adnexa. There is no ovarian torsion. There is no pelvic ascites or fluid collection. Right ovary measures 4.9 x 3.5 x 3.9 cm for a volume of 35 mL which includes a 4.2 x 3.2 x 3.3 cm cyst. Left ovary measures 1.7 x 1.0 x 0.7 cm for a volume of 0.6 mL and appeared normal. US/US pelvic complete IMPRESSION: 1. There is fluid in the endometrial canal which is not normal for a patient of 72 years of age. Endometrial sampling or endovaginal ultrasound may be useful for further evaluation. 2. A 4.2 cm right ovarian cyst. Recommend follow-up ultrasound in 3-6 months.
== END 2023-05-19 13:46 | disposition home or self-care (01) ==
LOC: HO.US 13:45
PROVIDERS: PCP Internal Medicine; Visit Provider Hospitalist
DX: N94.89 Other specified conditions associated with female genital organs and menstrual cycle (principal)
CPT/HCPCS: 76856

== ENCOUNTER 2023-10-25 10:42 | Outpatient (AMB) | payer OTHER, SELFPAY ==
[2023-10-25 11:13] VITALS: BP 126/62; PULSE 70; O2SAT 98
--- NOTE | 2023-10-25 11:13 | MHC.OFFVIS ---
Vital Signs 10/25/23 11:13 Weight 147 lb 11.355 oz BP 126/62 Blood Pressure Location Rt brachial Position Sitting Pulse 70 Pulse Source Pulse Oximeter Pulse Oximetry (%) 98 Oxygen Delivery Method Room Air Intake Visit Reasons: dupixent teaching Allergies almond [ALMOND] Allergy (Unknown, Unverified 10/25/23 11:13) POSITIVE ALLERGY TEST CLASS 3 coconut [COCONUT] Allergy (Unknown, Unverified 10/25/23 11:13) POSITIVE ALLERGY TEST CLASS 3 nickel [NICKEL] Allergy (Unknown, Unverified 10/25/23 11:13) POSITIVE ALLERGY TEST peanut [PEANUT] Allergy (Unknown, Unverified 10/25/23 11:13) POSITIVE ALLERGY TEST CLASS 3 pecan nut [PECAN] Allergy (Unknown, Unverified 10/25/23 11:13) POSITIVE ALLERGY TEST CLASS 2 sesame seed [SESAME SEED] Allergy (Unknown, Unverified 10/25/23 11:13) POSITIVE ALLERGY TEST CLASS 3 amoxicillin Allergy (Verified 10/25/23 11:13) Swelling Medication List - Last Reconciled 10/25/23 by Gina Llamas LPN albuterol sulfate 2.5 mg (3 mL) inhalation Q4H PRN 30 days budesonide 0.5 mg (2 mL) inhalation BID 30 days doxycycline monohydrate 100 mg PO BID 14 days dupilumab (Dupixent) Loading dose: 600mg SC x1, then, 300mg SC every 2 weeks 4 weeks ferrous sulfate 325 mg PO DAILY fluticasone propion-salmeterol 500-50 mcg/dose (Wixela Inhub) 1 inh inhalation Q12H levalbuterol HCl 1.25 mg (3 mL) inhalation BID 90 days nebulizers As directed paroxetine HCl 40 mg PO DAILY prednisone PO daily; Take 2 tabs daily x 5 days, then 1 tablet daily x 5 days 10 days HPI HPI dupixent teaching: Details: Gale is here for a Dupixent teach with her daughter Maggi. Gale and Sheridan were educated on hand washing, injection preparation, administration, and disposal.?Gale was able to return demonstrate proper technique for hand washing, injection preparation, administration and disposal of needle and states she has no questions at this time. Medication Dupixent 300mg/2mL pen injector (patient?s own meds) Loading dose of 600mg given by the patient in 2 SQ injections; injection #1 R thigh;? injection #2 L thigh? Lot#[id number] expires 06/12/2025. Patient and her daughter aware her next injection is in 15 days. Nurse visit only.? [facility] Medical History (Updated 10/25/23 @ 11:16 by Gina Llamas LPN) Bronchitis Aortic valve stenosis Hypertension Hyperlipidemia Asthma-COPD overlap syndrome Asthma Chronic allergic rhinitis Personal history of nicotine dependence GERD (gastroesophageal reflux disease) NITIN (iron deficiency anemia) Thrombocytopenia Vitamin B 12 deficiency Vitamin D deficiency Fatty liver Hiatal hernia Multiple food allergies Osteopenia (~2005) Glaucoma Surgical History (Updated 12/12/22 @ 12:45 by Navya Vyas PA-C) History of colonoscopy Family History (Updated 01/20/23 @ 12:03 by Noreen Vo NP) Sister Breast cancer Father No problems noted. Mother No problems noted. Sister Lung cancer Social History Patient Tobacco Use Status: Former Tobacco user Tobacco use type: Cigarette Cigarette Packs Per Day: 1.25 Years Smoked: 30 Physical Exam Vital Signs: Last Vital Signs Pulse 70 10/25/23 11:13 BP 126/62 10/25/23 11:13 Pulse Ox 98 10/25/23 11:13 Oxygen Delivery Method Room Air 10/25/23 11:13 Assessment & Plan Assessment & Plan (1) Asthma: Code(s): J45.909 - Unspecified asthma, uncomplicated Category: Medical Qualifiers: Asthma persistence: persistent Asthma severity: severe Plan: start Dupixent Coding Level of Care Code Established Pt Est Pt Level 1 (22460) Patient Type Established Diagnoses Asthma J45.909 Asthma persistence: persistent Asthma severity: severe Comment NURSE VISIT ONLY
== END 2023-10-25 11:18 | disposition home or self-care (01) ==
PROVIDERS: PCP Internal Medicine; Visit Provider Hospitalist
DX: J45.909 Unspecified asthma, uncomplicated (principal)

== ENCOUNTER → 2023-10-25 10:42 | Outpatient (BNVA) | payer OTHER, SELFPAY | PROVIDERS: PCP Internal Medicine; Visit Provider Hospitalist | DX: J45.909 Unspecified asthma, uncomplicated (principal) | CPT/HCPCS: 99211 ==

== ENCOUNTER 2023-11-13 10:47 | Outpatient (AMB) | payer OTHER, SELFPAY ==
--- NOTE | 2023-11-13 10:52 | A.OFFVIS_ITS ---
Vital Signs 11/13/23 10:53 Height 5 ft 2 in Weight 147 lb 11.355 oz BMI 27.0 BP 100/70 Blood Pressure Location Lt brachial Position Sitting Pulse 74 Pulse Source Pulse Oximeter Pulse Oximetry (%) 97 Oxygen Delivery Method Room Air Intake Visit Reasons: COPD follow-up Auto Collision Repair Instructor Required: No Allergies almond [ALMOND] Allergy (Unknown, Unverified 11/13/23 10:57) POSITIVE ALLERGY TEST CLASS 3 coconut [COCONUT] Allergy (Unknown, Unverified 11/13/23 10:57) POSITIVE ALLERGY TEST CLASS 3 nickel [NICKEL] Allergy (Unknown, Unverified 11/13/23 10:57) POSITIVE ALLERGY TEST peanut [PEANUT] Allergy (Unknown, Unverified 11/13/23 10:57) POSITIVE ALLERGY TEST CLASS 3 pecan nut [PECAN] Allergy (Unknown, Unverified 11/13/23 10:57) POSITIVE ALLERGY TEST CLASS 2 sesame seed [SESAME SEED] Allergy (Unknown, Unverified 11/13/23 10:57) POSITIVE ALLERGY TEST CLASS 3 amoxicillin Allergy (Verified 11/13/23 10:57) Swelling HPI Comments Details: The patient is a 73 year woman with known history of asthma and also tobacco dependency in the past. The patient has significant allergies. She has been following closely with allergy immunology. The patient has significant allergies to foods in addition to environmental allergies. She has been on respiratory therapy. The patient continues to be symptomatic with frequent shortness of breath chest tightness and wheezing. Moderate severity. Recently the patient did have a reaction. She was sent to the hospital for further care. Current the patient has been Wixela. She uses a rescue inhaler on a daily basis. She is feeling well today although she still has wheezing and chest tightness. The patient is a nebulizer. Will start her on nebulized therapy. With a history of glaucoma will can hold off on long-acting muscarinic antagonist until more information is gathered from the social services coordinator. The patient is a former smoker. She quit smoking between 5 to 8 years ago. She is a candidate for the lung cancer screening program. Will go ahead and refer her at this time. 12/29/2022 the patient is here for pulmonary follow-up visit. The patient has been feeling better. She has been using the combination inhaler and also has been using the budesonide. although she has been feeling better he still complains of daily episodes of wheezing and chest tightness. She does use her rescue inhaler on a daily basis for that reason. She did have her pulmonary function studies demonstrating significant small airways disease consistent with severe asthma and also has a mild obstruction also consistent with her uncontrolled asthma. 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 Still has significant asthma phenotype. Her allergy testing was very abnormal with an elevated IgE and significant allergies to both environmental allergens and foods. based on her uncontrolled asthma on maximum respiratory therapy will go ahead and recommend she start Xolair. The patient already has not EpiPen she knows how to use it. Based on her weight and her IgE level will go ahead and start with 300 mg once a month. The patient may need to increase that to every 2 weeks if she continues to be symptomatic however. She did not attend the lung cancer screening visit. Her daughter had gotten sick and she could not bring her to the appointment. Will go ahead and reschedule that appointment she can follow-up and get her lung cancer screening done. Will follow-up in 3-4 months to assess her progress on the biologic therapy. 03/31/2023 the patient is here for a pulmonary follow-up visit. She had been doing very well. She did start the Xolair injections and they were very affec ting beneficial. Although then the patient had a an allergic reaction where she was developing some angioedema. Her lips have been swollen. Denied any stridor. Although she did go to the ER. She did receive epinephrine at that point. After that was unclear if the Xolair could have been the culprit. Therefore she has been holding the Xolair. Based on her significant reaction I do believe that the Xolair could be potentially exacerbating her allergic reactions. Therefore, best to stop the Xolair. She is completed the prednisone taper. The patient has required multiple prednisone tapers because her significant asthma. The patient has uncontrolled asthma otherwise. She did much better on the Xolair. The patient has an elevated IgE and although her eosinophils are normal she has been on prednisone throughout so therefore difficult to really measure her eosinophils based on her uncontrolled asthma. Therefore, do believe Dupixent would be a better option for her. The patient does benefit from biologic therapy with Dupixent in view of her significant eczema in addition to her severe asthma. In the meantime she is going to continue on the Wixela in the other respiratory medications. 04/27/2023 the patient is here for sick visit. She started developing sore throat. That started developing a cough. The cough has become more congested. She has been also having more shortness of breath with activity. She has been using her nebulizer more often. Therefore she came in today. She did get her blood work including her CBC with differential and IgE level. Again, the patient does have severe persistent asthma due to her allergies and also has a history of eczema. Will try to get her on Dupixent since she had a reaction to Xolair most likely. Therefore, at this point will go ahead and start her on doxycycline. The patient also can start prednisone if no better. She will continue with respiratory treatments. If the patient is no better she will call for further evaluation. I do not believe x-rays needed at this time although if her symptoms do not improve she can always come in for one. 04/27/2023 the patient is here for sick visit. The patient started developing worsening cough chest congestion and a sore throat. Ultimately started developing some wheezing. Symptoms started about a week ago. Denies any fevers or chills or any arthralgias or myalgias. Does not tolerate the fever. No sick contacts in the home. Which still trying to get her on biologic therapy. We have taken off Xolair because of suspicious reaction. In the meantime she does have some rhonchi and wheezing on examination. Will go ahead and send her antibiotics and if she has not better she can start some prednisone as well. She can also use her nebulizer several times a day. The patient should also use a cough expectorate. I am going to go ahead and send the medication to the pharmacy. If the patient is no better she will call the office. In the meantime she is going to have blood work done in order for us to appeal the denial for the Dupixent biologic therapy injection. 11/13/2023 the patient is here for a pulmonary follow-up visit. Overall she is doing well. She is tolerating the Dupixent injection. She has not required any additional prednisone. She feels like her breathing significantly better. Denies any allergic reactions. No significant conjunctivitis. She continues on the Wixela inhaler. Also been helpful. She has not had to use her rescue inhaler. She does not have 1 available and make sure the to send her went to the pharmacy. No recent imaging studies to review. She did have a CT scan of the chest back in 02/01/2023 which was a rads 1. She is going to have another CT scan at that time. The only significant finding was some calcifications of the coronary arteries. Otherwise the patient is doing well she continue with the therapy continue with Dupixent will follow-up in 6 months. If any new issues arise prior to that she will call for an earlier assessment. Also, prior to her leaving we did talk about vaccines. She is reluctant to getting numerous vaccines but she is willing to take the Prevnar 20 today. She got the Prevnar 20 prior to leaving. [facility] Medical History (Updated 11/13/23 @ 10:59 by Stephen Dunn MD) Bronchitis Aortic valve stenosis Hypertension Hyperlipidemia Asthma-COPD overlap syndrome Asthma Chronic allergic rhinitis Personal history of nicotine dependence GERD (gastroesophageal reflux disease) NITIN (iron deficiency anemia) Thrombocytopenia Vitamin B 12 deficiency Vitamin D deficiency Fatty liver Hiatal hernia Multiple food allergies Osteopenia (~2005) Glaucoma Surgical History (Updated 12/12/22 @ 12:45 by Navya Vyas PA-C) History of colonoscopy Family History (Updated 01/20/23 @ 12:03 by Noreen Vo NP) Sister Breast cancer Father No problems noted. Mother No problems noted. Sister Lung cancer Social History Patient Tobacco Use Status: Former Tobacco user Tobacco use type: Cigarette Cigarette Packs Per Day: 1.25 Years Smoked: 30 Review of Systems Const Denies fever(s) Eyes Denies change in vision ENT Reports as per HPI, Reports nasal congestion and Reports sore throat Card Denies chest pain and Reports dyspnea on exertion Resp Denies change in phlegm color, Denies chest congestion, Reports cough, Reports dyspnea on exertion and Denies wheezing GI Denies abdominal pain Musc Reports no additional complaints Skin/Breast Denies rash Neuro Reports no additional complaints Endo Denies flushing Daniel/Lymph Denies lymphadenopathy Aller/Immun Denies wheezing Physical Exam Vital Signs: Last Vital Signs Pulse 74 11/13/23 10:53 BP 100/70 11/13/23 10:53 Pulse Ox 97 11/13/23 10:53 Oxygen Delivery Method Room Air 11/13/23 10:53 BMI result Body Mass Index 27.0 Const General: comfortable HEENT Head: Yes normocephalic Neck Neck: Yes supple Chest Chest palpation & inspection: normal inspection of the chest Resp Effort & Inspection: normal respiratory effort Auscultation: no rhonchi, wheezes and diminished lung sounds Cardio Rate: regular rate Rhythm: regular rhythm Heart sounds: S1 normal heart sound present and S2 normal heart sound present GI Palpation (GI): Soft to palpation Skin General skin exam: no rashes or lesions noted Extrem General: Yes no clubbing, cyanosis or edema Assessment & Plan Assessment & Plan (1) Asthma: Code(s): J45.909 - Unspecified asthma, uncomplicated Category: Medical Qualifiers: Asthma complication type: uncomplicated Asthma persistence: persistent Asthma severity: severe Qualified Code(s): J45.50 - Severe persistent asthma, uncomplicated (2) Chronic allergic rhinitis: Code(s): J30.9 - Allergic rhinitis, unspecified Category: Medical (3) Glaucoma: Code(s): H40.9 - Unspecified glaucoma Category: Medical Qualifiers: Glaucoma type: unspecified Laterality: bilateral Qualified Code(s): H40.9 - Unspecified glaucoma (4) Asthma-COPD overlap syndrome: Code(s): J44.9 - Chronic obstructive pulmonary disease, unspecified Category: Medical (5) Bronchitis: Code(s): J40 - Bronchitis, not specified as acute or chronic Category: Medical Plan continue Wixela no LAMA due to Glaucoma YOGESH as needed Epi pen stopped Xolair 300mg [id number] due to allergic reaction continue Dupixent 300mg [id number] stopped BUdesonide continue Xopenex as needed LDCT Prevnar 20 given today F/U 6 months Orders: Orders Pneumococcal 20 Immunization Today Z23 - Encounter for immunization Medications: New albuterol sulfate 90 mcg/actuation 2 inhalations inhalation Q6H 30 days PRN 18 grams 12RF shortness of breath or wheezing J44.9 - Chronic obstructive pulmonary disease, unspecified Coding Level of Care Code Est Pt Level 4 (09580) Diagnoses Severe persistent asthma without complication J45.50 Asthma complication type: uncomplicated Asthma persistence: persistent Asthma severity: severe Chronic allergic rhinitis J30.9 Glaucoma of both eyes, unspecified glaucoma type H40.9 Glaucoma type: unspecified Laterality: bilateral Asthma-COPD overlap syndrome J44.9 Bronchitis J40 Time Spent (min) 17
[2023-11-13 10:53] VITALS: BP 100/70; PULSE 74; O2SAT 97; BMI 27.0
== END 2023-11-13 11:19 | disposition home or self-care (01) ==
PROVIDERS: PCP Internal Medicine; Visit Provider Hospitalist
DX: J45.50 Severe persistent asthma, uncomplicated (principal); J30.9 Allergic rhinitis, unspecified; H40.9 Unspecified glaucoma; J44.9 Chronic obstructive pulmonary disease, unspecified; J40 Bronchitis, not specified as acute or chronic; Z23 Encounter for immunization
CPT/HCPCS: 99214

== ENCOUNTER → 2023-11-13 10:47 | Outpatient (BNVA) | payer OTHER, SELFPAY | PROVIDERS: PCP Internal Medicine; Visit Provider Hospitalist | DX: Z23 Encounter for immunization (principal); J45.50 Severe persistent asthma, uncomplicated; J30.9 Allergic rhinitis, unspecified; J44.9 Chronic obstructive pulmonary disease, unspecified; J40 Bronchitis, not specified as acute or chronic; H40.9 Unspecified glaucoma | CPT/HCPCS: 90471; 90677; 99212 ==

== ENCOUNTER 2024-05-13 10:54 | Outpatient (AMB) | payer OTHER, SELFPAY ==
[2024-05-13 11:05] VITALS: BP 100/58; PULSE 76; O2SAT 97; BMI 27.8
--- NOTE | 2024-05-13 11:05 | A.OFFVIS_ITS ---
Vital Signs 05/13/24 11:05 Height 5 ft 2 in Weight 152 lb 1.903 oz BMI 27.8 BP 100/58 L Blood Pressure Location Lt brachial Position Sitting Pulse 76 Pulse Source Pulse Oximeter Pulse Oximetry (%) 97 Oxygen Delivery Method Room Air Intake Visit Reasons: COPD Allergies milk Allergy (Intermediate, Verified 05/13/24 11:10) Hives almond [ALMOND] Allergy (Unknown, Unverified 05/13/24 11:10) POSITIVE ALLERGY TEST CLASS 3 coconut [COCONUT] Allergy (Unknown, Unverified 05/13/24 11:10) POSITIVE ALLERGY TEST CLASS 3 nickel [NICKEL] Allergy (Unknown, Unverified 05/13/24 11:10) POSITIVE ALLERGY TEST peanut [PEANUT] Allergy (Unknown, Unverified 05/13/24 11:10) POSITIVE ALLERGY TEST CLASS 3 pecan nut [PECAN] Allergy (Unknown, Unverified 05/13/24 11:10) POSITIVE ALLERGY TEST CLASS 2 sesame seed [SESAME SEED] Allergy (Unknown, Unverified 05/13/24 11:10) POSITIVE ALLERGY TEST CLASS 3 amoxicillin Allergy (Verified 05/13/24 11:10) Swelling HPI Comments Details: The patient is a 73 year woman with known history of asthma and also tobacco dependency in the past. The patient has significant allergies. She has been f ollowing closely with allergy immunology. The patient has significant allergies to foods in addition to environmental allergies. She has been on respiratory therapy. The patient continues to be symptomatic with frequent shortness of breath chest tightness and wheezing. Moderate severity. Recently the patient did have a reaction. She was sent to the hospital for further care. Current the patient has been Wixela. She uses a rescue inhaler on a daily basis. She is feeling well today although she still has wheezing and chest tightness. The patient is a nebulizer. Will start her on nebulized therapy. With a history of glaucoma will can hold off on long-acting muscarinic antagonist until more information is gathered from the credit control clerk. The patient is a former smoker. She quit smoking between 5 to 8 years ago. She is a candidate for the lung cancer screening program. Will go ahead and refer her at this time. 12/29/2022 the patient is here for pulmonary follow-up visit. The patient has been feeling better. She has been using the combination inhaler and also has been using the budesonide. although she has been feeling better he still complains of daily episodes of wheezing and chest tightness. She does use her rescue inhaler on a daily basis for that reason. She did have her pulmonary function studies demonstrating significant small airways disease consistent with severe asthma and also has a mild obstruction also consistent with her uncontrolled asthma. 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 Still has significant asthma phenotype. Her allergy testing was very abnormal with an elevated IgE and significant allergies to both environmental allergens and foods. based on her uncontrolled asthma on maximum respiratory therapy will go ahead and recommend she start Xolair. The patient already has not EpiPen she knows how to use it. Based on her weight and her IgE level will go ahead and start with 300 mg once a month. The patient may need to increase that to every 2 weeks if she continues to be symptomatic however. She did not attend the lung cancer screening visit. Her daughter had gotten sick and she could not bring her to the appointment. Will go ahead and reschedule that appointment she can follow-up and get her lung cancer screening done. Will follow-up in 3-4 months to assess her progress on the biologic therapy. 03/31/2023 the patient is here for a pulmonary follow-up visit. She had been doing very well. She did start the Xolair injections and they were very aff ecting beneficial. Although then the patient had a an allergic reaction where she was developing some angioedema. Her lips have been swollen. Denied any stridor. Although she did go to the ER. She did receive epinephrine at that point. After that was unclear if the Xolair could have been the culprit. Therefore she has been holding the Xolair. Based on her significant reaction I do believe that the Xolair could be potentially exacerbating her allergic reactions. Therefore, best to stop the Xolair. She is completed the prednisone taper. The patient has required multiple prednisone tapers because her significant asthma. The patient has uncontrolled asthma otherwise. She did much better on the Xolair. The patient has an elevated IgE and although her eosinophils are normal she has been on prednisone throughout so therefore difficult to really measure her eosinophils based on her uncontrolled asthma. Therefore, do believe Dupixent would be a better option for her. The patient does benefit from biologic therapy with Dupixent in view of her significant eczema in addition to her severe asthma. In the meantime she is going to continue on the Wixela in the other respiratory medications. 04/27/2023 the patient is here for sick visit. She started developing sore throat. That started developing a cough. The cough has become more congested. She has been also having more shortness of breath with activity. She has been using her nebulizer more often. Therefore she came in today. She did get her blood work including her CBC with differential and IgE level. Again, the patient does have severe persistent asthma due to her allergies and also has a history of eczema. Will try to get her on Dupixent since she had a reaction to Xolair most likely. Therefore, at this point will go ahead and start her on doxycycline. The patient also can start prednisone if no better. She will continue with respiratory treatments. If the patient is no better she will call for further evaluation. I do not believe x-rays needed at this time although if her symptoms do not improve she can always come in for one. 04/27/2023 the patient is here for sick visit. The patient started developing worsening cough chest congestion and a sore throat. Ultimately started developing some wheezing. Symptoms started about a week ago. Denies any fevers or chills or any arthralgias or myalgias. Does not tolerate the fever. No sick contacts in the home. Which still trying to get her on biologic therapy. We have taken off Xolair because of suspicious reaction. In the meantime she does have some rhonchi and wheezing on examination. Will go ahead and send her antibiotics and if she has not better she can start some prednisone as well. She can also use her nebulizer several times a day. The patient should also use a cough expectorate. I am going to go ahead and send the medication to the pharmacy. If the patient is no better she will call the office. In the meantime she is going to have blood work done in order for us to appeal the denial for the Dupixent biologic therapy injection. 11/13/2023 the patient is here for a pulmonary follow-up visit. Overall she is doing well. She is tolerating the Dupixent injection. She has not required any additional prednisone. She feels like her breathing significantly better. Denies any allergic reactions. No significant conjunctivitis. She continues on the Wixela inhaler. Also been helpful. She has not had to use her rescue inhaler. She does not have 1 available and make sure the to send her went to the pharmacy. No recent imaging studies to review. She did have a CT scan of the chest back in 02/01/2023 which was a rads 1. She is going to have another CT scan at that time. The only significant finding was some calcifications of the coronary arteries. Otherwise the patient is doing well she continue with the therapy continue with Dupixent will follow-up in 6 months. If any new issues arise prior to that she will call for an earlier assessment. Also, prior to her leaving we did talk about vaccines. She is reluctant to getting numerous vaccines but she is willing to take the Prevnar 20 today. She got the Prevnar 20 prior to leaving. 05/13/2024 the patient is here for a pulmonary follow-up visit. Overall the patient has been doing fair. She continues to have wheezing on a regular basis. Chest tightness. Moderate severity. She has been using Dupixent now for several months without any significant improvement that she can see. Although I did emphasize the fact that she has not required any prednisone which is by itself in improvement. She does complaint of nasal congestion postnasal drip. Going to the spring she does have most of her allergies and explained to her that slightly that the allergy that was now more significant. At this point will go ahead and maximize respiratory therapy by switching her from Wixela to Trelegy. Can also increase her antihistamines. The patient also can start more aggressive nasal therapies to minimize allergic exposures. She was supposed to have a CT scan the end of January but she was not able to do it. We have to reschedule. I will re-refer her to the lung cancer screening program for scheduled date. In addition to that will have her come back in 3-4 months with PFTs to assess lung capacity. [facility] Medical History (Updated 05/13/24 @ 21:49 by Stephen Dunn MD) Bronchitis Aortic valve stenosis Hypertension Hyperlipidemia Asthma-COPD overlap syndrome Asthma Chronic allergic rhinitis Personal history of nicotine dependence GERD (gastroesophageal reflux disease) NITIN (iron deficiency anemia) Thrombocytopenia Vitamin B 12 deficiency Vitamin D deficiency Fatty liver Hiatal hernia Multiple food allergies Osteopenia (~2005) Glaucoma Surgical History (Updated 12/12/22 @ 12:45 by Navya Vyas PA-C) History of colonoscopy Family History (Updated 01/20/23 @ 12:03 by Noreen Vo NP) Sister Breast cancer Father No problems noted. Mother No problems noted. Sister Lung cancer Social History Patient Tobacco Use Status: Former Tobacco user Tobacco use type: Cigarette Cigarette Packs Per Day: 1.25 Years Smoked: 30 Review of Systems Const Denies fever(s) Eyes Denies change in vision ENT Reports as per HPI, Reports nasal congestion and Reports sore throat Card Denies chest pain and Reports dyspnea on exertion Resp Denies change in phlegm color, Denies chest congestion, Reports cough, Reports dyspnea on exertion and Reports wheezing GI Denies abdominal pain Musc Reports no additional complaints Skin/Breast Denies rash Neuro Reports no additional complaints Endo Denies flushing Daniel/Lymph Denies lymphadenopathy Aller/Immun Reports wheezing Physical Exam Vital Signs: Last Vital Signs Pulse 76 05/13/24 11:05 BP 100/58 L 05/13/24 11:05 Pulse Ox 97 05/13/24 11:05 Oxygen Delivery Method Room Air 05/13/24 11:05 BMI result Body Mass Index 27.8 Const General: comfortable HEENT Head: Yes normocephalic Neck Neck: Yes supple Chest Chest palpation & inspection: normal inspection of the chest Resp Effort & Inspection: normal respiratory effort Auscultation: no rhonchi, wheezes and diminished lung sounds Cardio Rate: regular rate Rhythm: regular rhythm Heart sounds: S1 normal heart sound present and S2 normal heart sound present GI Palpation (GI): Soft to palpation Skin General skin exam: no rashes or lesions noted Extrem General: Yes no clubbing, cyanosis or edema Assessment & Plan Assessment & Plan (1) Asthma: Code(s): J45.909 - Unspecified asthma, uncomplicated Category: Medical Qualifiers: Asthma complication type: uncomplicated Asthma persistence: persistent Asthma severity: severe Qualified Code(s): J45.50 - Severe persistent asthma, uncomplicated (2) Chronic allergic rhinitis: Code(s): J30.9 - Allergic rhinitis, unspecified Category: Medical (3) Asthma-COPD overlap syndrome: Code(s): J44.9 - Chronic obstructive pulmonary disease, unspecified Category: Medical (4) Bronchitis: Code(s): J40 - Bronchitis, not specified as acute or chronic Category: Medical Plan stop Wixela no Glaucoma start Trelegy, monitor for visual changes YOGESH as needed Epi pen continue Dupixent 300mg [id number] BUdesonide nebs continue Xopenex as needed increase zyrtec BID LDCT PFTs in 3-4 months F/U 3-4 months Orders: Orders PFT pulmonary function test Today J45.50 - Severe persistent asthma, uncomplicated Medications: New cbsvscqolpq-yniqsdlnk-eramfdew 200-62.5-25 mcg (Trelegy Ellipta) 1 inh inhalation DAILY 60 ea 12RF 30 days cetirizine 10 mg PO BID 60 tabs 3RF allergies cetirizine 10 mg PO BID 60 tabs 3RF allergies J45.50 - Severe persistent asthma, uncomplicated Coding Level of Care Code Est Pt Level 4 (25930) Complex EM visit Add On G2211 Diagnoses Severe persistent asthma without complication J45.50 Asthma complication type: uncomplicated Asthma persistence: persistent Asthma severity: severe Chronic allergic rhinitis J30.9 Asthma-COPD overlap syndrome J44.9 Bronchitis J40 Time Spent (min) 17
--- OUTSIDE RECORDS SUMMARY | 2024-05-13 12:21 | XMS_ITS | Encounter Summary ---
Author Organization [facility] Address [address] [place] [address] Care Team Providers Care Stave Jointer Name Role Phone Mali Boswell DO Primary Care Pro vider Reason for Visit * Reason Onset Date Comments special procedure 05/03/2024 Encounter Details Date Type Department Care Team ([facility] Contact Info) Description 05/03/2024 Telephone Gastroenterology - [address] [facility] [address] [place] [id number] Reymundo Colon MD [address] [facility] [address] [place] [address] special procedure Social History Tobacco Use Types Packs/Day Years Used Date Smoking Tobacco: Former Cigarettes Q uit: 12/06/2013 Smokeless Tobacco: Never Alcohol Use Standard Drinks/Week Comments Not Currently 0 (1 standard drink = 0.6 oz pur e alcohol) Interpersonal Safety Answer Date Record ed Physical Abuse 01/18/2024 Verbal Abuse 01/18/2024 Comments Unknown Sex and Gender Information Value Date Recorded Sex Assigned at Not on file Legal Sex Female 6:12 AM EST Gender Identity Not on file Sexual Orientation Not on file documented as of this encounter Progress Notes * Yuni Flores MA - 05/10/2024 1:17 PM EDT Referral for capsule was placed please let us know when it is booked. * Kun Mireles - 05/09/2024 1:46 PM EDT Spoke w pt daughter explained why is a capsule push. Pt daughter aware of new date and is okay withit. She just wanted sooner because she thought pt had to be off iron this whole time explained she only needs to hold it 5 days prior. * Mary Beth Almanzar - 05/09/2024 11:56 AM EDT PT DAUGHTER CALLED TO R/S CAPSULE STUDY.WANTS IT SOONER THAN 4 * Kun Mireles - 05/08/2024 11:46 AM EDT 2ND ATTEMPT LVM TO SWITCH APT TO 4.17 * Myrtle Berry MA - 05/06/2024 2:46 PM EDT Pt scheduled on 05/30/2024 No pa needed per [facility] website * Kun Mireles - 05/06/2024 1:17 PM EDT LVM TO MOVE APT TO 4.17.25 SAME TIME * Kun Mireles - 05/06/2024 8:47 AM EDT Spoke w pt daughter scheduled apt on 4.16.25 at 730. Instructions mailed. ? PA * Fely Hardwick - 05/03/2024 3:21 PM EDT Shefali méndez [place] at 175, placed a referral to have capsule endoscopy done and received a call to schedule. Please call patient back. * Yuni Ponce - 05/03/2024 2:58 PM EDT Patient returning call to schedule capsule endoscopy documented in this encounter Plan of Treatment Upcoming Encounters Date Type Department Care Team (Late st Contact Info) Description 07/09/2024 10:00 AM EDT Office Visit [facility] Hematology Oncology [address] [place] [address] Ginette Mcginnis MD [address] [place] [address] documented as of this encounter Visit Diagnoses Not on filedocumented in this encounter Care Teams Stave Jointer Relationship Specialty Start Date End Date Mali Boswell DO [facility] [address] [place] [phone] PCP - General Internal Medicine 01/15/24 documented as of this encounter
--- OUTSIDE RECORDS SUMMARY | 2024-05-13 12:21 | XMS_ITS | Clinical Summary ---
Author Organization [facility] Address [address] [place] [address] Phone Care Team Providers Care Animal Taxonomist Name Role Phone NestorsreesuzyMali redmond DO Primary Care Pro vider Allergies Active Allergy Reactions Criticality Noted Date Comments Amoxicillin 06/10/2017 Facial swelling Chocolate 09/07/2016 Diagnosed by allergy testing Coconut Oil Other 09/07/2016 Coconuts by blood testing Isothiazolinones 05/30/2018 Positive patch test Nickel 08/30/2016 Nut - Unspecified Other 09/07/2016 Diagnosed by blood testing for rash Peanut 04/12/2016 Ate candy chocolate with peanut and developed throat tightening Sesame Seed 09/07/2016 Diagnosed by allergy testing for rash Medications acetaminophen (TYLENOL) 500 mg tablet 500 mg. 8 Active albuterol 2.5 mg /3 mL (0.083 %) nebulizer solution Take 1 Vial by nebulization 4 times daily. 0 Active ALPRAZolam (XANAX) 0.5 mg tablet Take 0.5 mg by mouth 2 times daily as needed. Active amLODIPine (NORVASC) 10 mg tablet Take 1 Tablet by mouth daily. 2 Active ammonium lactate (AMLACTIN) 12 % cream Apply qd 7 Active apremilast 30 mg tablet Take 1 Tab by mouth 2 times daily. Active polyvinyl alcohol (ARTIFICIAL TEARS) 1.4 % ophthalmic solution INSTILL 1 DROP 4 TIMES PER DAY BOTH EYES 1 Active atorvastatin (LIPITOR) 40 mg tablet TAKE 1 TABLET BY MOUTH EVERY DAY 3 Active diphenhydrAMINE (Banophen) 25 mg capsule Take 1 capsule by mouth 3 times daily. 1 Active blood pressure monitor (Blood Pressure Kit) kit 1 Units by Does not apply route daily. Please take your blood pressure once a day 2 Active calcipotriene (DOVONOX) 0.005 % ointment USE 1 APPLICATION TOPICALLY ONCE A DAY 1 Active cetirizine (ZyrTEC) 10 mg tablet Take 1 Tab by mouth daily. 1 Active clobetasoL (TEMOVATE) 0.05 % cream USE 1 APPLICATION TOPICALLY 2 TIMES A DAY 90 DAYS 1 Active petrolatum,whit e/water (VANICREAM LITE TOP) Apply topically. Act dinh dupilumab (DUPIXENT) 300 mg/2 mL pen Inject 150 mg into the skin every 14 days. - Subcutaneous Active EPINEPHrine (EpiPen 2-Harvey) 0.3 mg/0.3 mL injection Inject 1 Syringe as directed as needed (anaphylaxis). 0 Active FLUoxetine (PROzac) 20 mg capsule Take 1 Capsule by mouth daily. - Oral Active fluticasone propionate (FLONASE) 50 mcg/actuation nasal spray 2 sprays each nostril once daily as needed. 1 Active incontinence pad, liner, disp pad Use four underpads daily for incontinence needs 9 Active incontinence pad, liner, disp (Poise Pantiliners) pad Use five panty liners daily for incontinence needs 9 Active lisinopriL (PRINIVIL,ZESTR IL) 5 mg tablet TAKE 1 TABLET BY MOUTH EVERY DAY 4 Active montelukast (SINGULAIR) 10 mg tablet Take 1 Tablet by mouth daily. 2 Active emollient base (VANICREAM TOP) Apply topically. Active fluticasone propion-salmete roL (Wixela Inhub) 500-50 mcg/dose diskus inhaler TOME TAMIKO INHALACION POR VIA ORAL DOS VECES AL VINCE 1 Active PARoxetine (PAXIL) 40 mg tablet Take 1 Tablet by mouth daily. - Oral Active polyethylene glycol (Golytely) 236-22.74-6.74 -5.86 gram solution Take 4L by mouth once for one dose. May substitue any PEG. Starting at 6PM the night before your procedure drink 1 8oz glasses at your own pace until you complete half of the gallon. Finish 2nd half of the gallon 5 hours before your procedure. 4000 mL 4 Active bisacodyL (DULCOLAX) 5 mg EC tablet Take 2 tablets by mouth right before beginning bowel prep. See instructions provided by the office 2 tablet 4 Active ferrous sulfate 325 mg (65 mg iron) EC tablet TAKE 1 TABLET BY MOUTH EVERY DAY 90 tablet 3 4 Active omeprazole (PriLOSEC) [address] capsule Take 1 capsule (40 mg total) by mouth 1 (one) time each day. Do not crush or chew. 90 each 3 5 03/20/19 26 Active Active Problems Problem Noted Date Diagnosed Date HTN (hypertension) 12/19/2023 Overview (12/19/2023): Last Assessment & Plan: Reasonably controlled on current amlodipine 10 mg daily, continue Osteoarthritis, hand 12/19/2023 Spongiotic dermatitis 12/19/2023 Allergic rhinitis 05/21/2020 Conjunctivitis, allergic, bilateral 05/21/2020 Psoriasis 04/27/2020 Overview (12/19/2023): Follows at [facility] Started on Otezla, 10/2020 Hypokalemia 01/18/2019 Dyslipidemia 10/02/2017 Overview (12/19/2023): Last Assessment & Plan: Continue current atorvastatin. Chronic obstructive pulmonary disease 09/22/2016 Dermatosis 09/22/2016 Murmur, cardiac 03/01/2016 Overview (12/19/2023): - Most recent echocardiogram from May 2021 showed normal biventricular size and systolic function with normal left ventricular regional wall motion and ejection fraction of 60 to 65%, aortic sclerosis without stenosis with dimensionless index of 0.71, normal pulmonary artery systolic pressure, no evidence of diastolic dysfunction Last Assessment & Plan: I suspect previous aortic valve area from prior echoes may have been underestimated and this may have been a technical error. By exam and on her to most recent echoes, she has aortic sclerosis without stenosis. As such, would not recommend surveillance echoes unless she has a change in murmur or change in exam. Today her murmur sounds very benign. Tremor of both hands 10/06/2015 Iron deficiency anemia 10/30/2014 Overview (12/19/2023): Treated with IV iron, summer 2014, ? Etiology. Upper GI endoscopy and colonoscopy 08/09/2016, duodenal biopsies normal, no bleeding lesions, diminutive tubular adenomas ? 2 , next colonoscopy indicated 2021. Asthmatic bronchitis , chronic 07/22/2014 Eczema 04/08/2014 Anxiety 01/20/2014 GERD (gastroesophageal reflux disease) 4 Microscopic hematuria 01/20/2014 Overview (12/19/2023): Seen bu urology 12/25/12 Normal cysto/ f/u 1 yr [facility] transfer note) Encounters Date Type Department Care Team Description 05/04/2024 8:37 AM EDT - 05/04/2024 11:59 PM EDT Hospital Encounter Radiology Department - [address] [address] Encounter for screening mammogram for breast cancer Discharge Disposition: Home or Self Care 05/03/2024 Telephone Gastroenterology - [address] [facility] [address] [place] [phone] Reymundo Colon MD special procedure 05/02/2024 Telephone Gastroenterology - [place] [address] [place] [phone] Shilpa Kuhn [place] Appointment 03/20/2024 2:20 PM EST Office Visit Gastroenterology [facility] [address] [facility] [address] [place] [address] Shefali Fragoso NP Large hiatal hernia (Primary Dx); Alex ulcer, unspecified ulcer chronicity; Chronic iron deficiency anemia; Gastroesophageal reflux disease without esophagitis 03/20/2024 Telephone Gastroenterology [facility] [address] [facility] [address] [place] [address] Shefali Fragoso, ABHISHEK from Last 3 Months Immunizations Name Administration Dates Next Due Influenza trivalent, 0.5mL, preservative free (Fluarix; FluLaval; Fluzone) ages 6mo and older (Afluria) 3 years and older 01/11/2016,11/10/2014 Pneumococcal conjugate 13 va lent (Prevnar 13, PCV13) 2mo and older 06/30/2014 Pneumococcal polysaccharide 23 valent (Pneumovax 23) 2yo and older 03/20/2018,08/12/2016 Pneumococcal, Unspecified 02/26/1998 Td Tetanus diptheria (Tdvax) 7yo and older 07/07 Tdap Tetanus diptheria acell ular pertussis (Boostrix; Adacel) 7yo and older 01/11/2016 Surgical History Surgery Date Site/Laterality Comments TUBAL LIGATION PROCEDURE: HISTORICAL TUBAL LIGATION OTHER SURGICAL HISTORY 05/13/11 PROCEDURE: MAMMOGRAM COLONOSCOPY 06/13/2014 PROCEDURE: HISTORICAL COLONOSCOPY; COMMENT: Normal colonoscopy COLONOSCOPY 08/09/2016 PROCEDURE: HISTORICAL COLONOSCOPY; COMMENT: Muslu[facility]; diverticulosis; diminutive transverse colon tubular adenomas ? 2 . UPPER GASTROINTESTINAL ENDOSCOPY 08/09/2016 PROCEDURE: IN UPPER GI ENDOSCOPY PERFORMED; COMMENT: Duodenal biopsies normal. Large hiatal hernia, 4 cm. No bleeding lesions in the hernia. FOOT SURGERY 1960 Left PROCEDURE: HISTORICAL FOOT SURGERY; COMMENT: L foot fx Medical History Medical History Date Comments Osteoarthritis, hand DX:Osteoart hritis, hand COPD (chronic obstructive pu lmonary disease) ([facility]) 09/22/2016 DX:COPD (chronic obstructive pulmonary disease) ([facility]) Asthma DX:Asthma History of tobacco abuse DX:Hist ory of tobacco abuse HTN (hypertension) DX:HTN (hyper tension) Postmenopausal DX:Postmenopausa l Hyperlipidemia 01/20/2014 DX:Hyperlipidemi a Microscopic hematuria 01/20/2014 DX:Microsc opic hematuria; COMMENT: Seen bu urology 12/25/12 Normal cysto/ f/u 1 yr [facility] 9transfer note) GERD (gastroesophageal reflux disease) 01/20/2014 DX:GERD (gastroesophageal reflux disease) Anxiety 01/20/2014 DX:Anxiety Eczema 04/08/2014 DX:Eczema Iron deficiency anemia 10/30/2014 DX:Iron d eficiency anemia; COMMENT: Treated with IV iron, summer 2014, ? etiology Mitral regurgitation DX:Mitral r egurgitation; COMMENT: 12/27 echo mild Tricuspid regurgitation 03/01/2016 DX:Tricu spid regurgitation; COMMENT: 12/27 echo mild Tremor of both hands 10/06/2015 DX:Tremor o f both hands Mild aortic stenosis 03/01/2016 DX:Mild aor tic stenosis Dermatosis 09/22/2016 DX:Dermatosis Asthmatic bronchitis , chron ic ([facility]) 07/22/2014 DX:Asthmatic bronchitis , ch ronic ([facility]) Spongiotic dermatitis DX:Spongio tic dermatitis Hypokalemia DX:Hypokalemia Dyslipidemia DX:Dyslipidemia Dermatosis DX:Dermatosis COPD (chronic obstructive pu lmonary disease) ([facility]) DX:COPD (chronic obstructive pulmonary disease) ([facility]) TR (tricuspid regurgitation) DX: TR (tricuspid regurgitation) Mild aortic stenosis DX:Mild aor tic stenosis Tremor of both hands DX:Tremor o f both hands NITIN (iron deficiency anemia) DX: NITIN (iron deficiency anemia) Asthmatic bronchitis , chron ic ([facility]) DX:Asthmatic bronchitis , ch ronic ([facility]) Eczema DX:Eczema Microscopic hematuria DX:Microsc opic hematuria GERD (gastroesophageal reflux disease) DX:GERD (gastroesophageal reflux disease) Anxiety DX:Anxiety Osteoarthritis, hand DX:Osteoart hritis, hand History of tobacco use DX:Histor y of tobacco use Hypertension DX:Hypertension Mitral regurgitation DX:Mitral r egurgitation Family History Medical History Relation Name Comments Arthritis Brother 1 Arthritis Brother 2 Arthritis Daughter 1 Arthritis Daughter 2 Other cancer Paternal Grandfather Other: Paternal Grandfather Arthritis Sister 1 Diabetes Sister 1 Breast CA Diabetes Sister 2 Other: lupus Sister 3 Lung cancer Sister 4 Lung cancer Sister 5 Arthritis Sister 6 Lung cancer Sister 7 s/p tracheostom y Breast cancer Sister 8 Diabetes Sister 8 Lung cancer Sister 8 Relation Name Status Comments Brother 1 Brother 2 Daughter 1 Daughter 2 Paternal Grandfather Sister 1 Sister 2 Sister 3 Sister 4 Sister 5 Sister 6 Sister 7 Sister 8 Social History Tobacco Use Types Packs/Day Years Used Date Smoking Tobacco: Former Cigarettes Q uit: 12/06/2013 Smokeless Tobacco: Never Alcohol Use Standard Drinks/Week Comments Not Currently 0 (1 standard drink = 0.6 oz pur e alcohol) Interpersonal Safety Answer Date Record ed Physical Abuse 01/18/2024 Verbal Abuse 01/18/2024 Comments No Sex and Gender Information Value Date Recorded Sex Assigned at Not on file Legal Sex Female 6:12 AM EST Gender Identity Not on file Sexual Orientation Not on file Obstetrics History Para Term AB IAB SAB Ectopic Multiple Livin g Live Births 3 3 3 3 Date Outcome GA Total Labor Labor/2nd/3rd Weight Sex Type Anes PTL Neelima A1 A5 Name Clin Term Term Term Last Filed Vital Signs Vital Sign Reading Time Taken Comments Blood Pressure 152/65 01/23/2024 10:19 AM EST Pulse 73 01/23/2024 10:19 AM EST Temperature 36.9 ??C (98.4 ??F) 01/23/2024 10:[address] Respiratory Rate 18 01/18/2024 11:08 AM EST Oxygen Saturation 96% 01/23/2024 10:19 AM EST Inhaled Oxygen Concentration - - Weight 68 kg (150 lb) 03/20/2024 2:01 PM EST Height 160 cm (5' 3 ) 03/20/2024 2:01 PM EST Body Mass Index 26.57 03/20/2024 2:01 PM EST Plan of Treatment Upcoming Encounters Date Type Department Care Team (Late st Contact Info) Description 07/09/2024 10:00 AM EDT Office Visit [facility] Hematology Oncology [address] [place] [phone] Ginette Mcginnis MD [address] [place] [address] Health Maintenance Due Date Last Done Comments COVID-19 Vaccine (#1) 1955 Zoster Vaccines (1 of 2) 1998 Depression Screening 01/21/2022 Medicare Annual Wellness Visit 01/21/2022 Social Influencers of Health Screening 01/21/2022 Hypertension/CHF/CAD Annual BMP Blood Test 01/23/2022 05/21/2020 Influenza Vaccine (#1) 2023 01/11/2016, 2014 RSV Immunization Patients 60+ Years Old (1 - 1-dose 75+ series) 11/04/2023 Falls Risk Assessment 01/17/2025 01/18/2024 Cholesterol Screening (Lipid Panel) 05/21/2025 05/21/2020 DTaP,Tdap,and Td Vaccines (3 - Td or Tdap) 01/10/2026 01/11/2016, 07/07/2009 Colorectal Cancer Screening: Colonoscopy 01/17/2029 01/18/2024, 08/09/2016 Osteoporosis Screening (Bone Density Screening) 04/01/2030 04/01/2020, 08/03/2016 Hepatitis C Screening Completed 04/01/2014 Pneumococcal Vaccine: 50+ Years Completed 11/13/2023, 03/20/2018, 08/12/2016, Additional history exists Breast Cancer Screening Discontinued 05/05/19, 04/08/2023, 04/07/2018, Additional history exists HIB Vaccines Aged Out No longer eligi ble based on patient's age to complete this topic HPV Vaccines Aged Out No longer eligi ble based on patient's age to complete this topic Hepatitis A Vaccines Aged Out No long er eligible based on patient's age to complete this topic Hepatitis B Vaccines Aged Out No long er eligible based on patient's age to complete this topic IPV Vaccines Aged Out No longer eligi ble based on patient's age to complete this topic MMR Vaccines Aged Out No longer eligi ble based on patient's age to complete this topic Meningococcal ACWY Vaccine Aged Out N o longer eligible based on patient's age to complete this topic Meningococcal B Vacine Aged Out No lo nger eligible based on patient's age to complete this topic RSV Immunization Patients Under 20 months Aged Out No longer eligible based on patient's age to complete this topic Varicella Vaccines Aged Out No longer eligible based on patient's age to complete this topic Procedures Procedure Name Priority Date/Time Associated Diagnosis Comments MG MAMMO DIGITAL SCREENING W BRADY BILAT Routine 05/04/2024 8:54 AM EDT Encounter for screening mammogram for breast cancer COLONOSCOPY Routine 01/18/2024 10:37 AM EST NITIN (iron deficiency anemia) HM ANNUAL BMP BLOOD TEST Routine 05/21/2020 LIPID PANEL Routine 05/21/2020 DXA BONE DENSITY STUDY 1+ SITS AXIAL SKEL Routine 04/01/2020 10:40 AM EST Other specified disorders of bone density and structure, unspecified site HEPATITIS C SCREENING Routine 04/01/2014 from Last 3 Months or Most Recently Relevant to Health Maintenance Results * MG Mammo Digital Screening w Brady bilat (05/04/2024 8:54 AM EDT) Anatomical Region Laterality Modality Breast Bilateral Mammography 05/06/2024 11:4 3 AM EDT Impressions 05/06/2024 12:23 PM EDT Benign. BI-RADS CATEGORY: 1 - NEGATIVE RECOMMENDATION: Screening bilateral mammogram is recommended in 1 year. Mammo Location: [facility], [address] [place] [address], [id number], . -------- FINAL REPORT -------- Dictated By: María Reece Dictated Date: 05/06/2024 11:43 ET Assigned Physician: María Reece Reviewed and Electronically Signed By: María Reece Signed Date: 05/06/2024 12:23 ET Workstation ID: [id number] Transcribed By: Self Edit Transcribed Date: 05/06/2024 11:43 ET Narrative 05/06/2024 12:23 PM EDT CLINICAL: 73 years old, Female, routine annual exam. COMPARISON: Mammograms dating back to 03/25/2017 with most recent of 04/08/2023. ?? TECHNIQUE: Bilateral MLO and CC views were obtained digitally with 3-D mammogram (digital breast tomosynthesis). Computer-aided detection was utilized in evaluation of this exam (CAD). FINDINGS: There is no evidence of suspicious mass or architectural distortion. ??No worrisome calcifications are evident. ??There has been no significant change from prior exam(s). ?? BREAST DENSITY: B - There are scattered areas of fibroglandular density. Procedure Note María Reece MD - 05/06/2024 CLINICAL: 73 years old, Female, routine annual exam. COMPARISON: Mammograms dating back to 03/25/2017 with most recent of04/08/2023. TECHNIQUE: Bilateral MLO and CC views were obtained digitally with 3-Dmammogram (digital breast tomosynthesis). Computer-aided detection wasutilized in evaluation of this exam (CAD). FINDINGS: There is no evidence of suspicious mass or architectural distortion. Noworrisome calcifications are evident. There has been no significantchange from prior exam(s). BREAST DENSITY: B - There are scattered areas of fibroglandular density. IMPRESSION: Benign. BI-RADS CATEGORY: 1 - NEGATIVE RECOMMENDATION: Screening bilateral mammogram is recommended in 1 year. Mammo Location: [facility], [address] [place] [address], [address], . -------- FINAL REPORT -------- Dictated By: María Reece Dictated Date: 05/06/2024 11:43 ET Assigned Physician: María Reece Reviewed and Electronically Signed By: María Reece Signed Date: 05/06/2024 12:23 ET Workstation ID: [id number] Transcribed By: Self Edit Transcribed Date: 05/06/2024 11:43 ET us Mali Boswell DO IMG BI PROCEDURES Final Result * COLONOSCOPY Anesthesia - MAC; [facility] ENDOSCOPY (01/18/2024 10:37 AM EST) Anatomical Region Laterality Modality Endoscopy 01/18/2024 10:0 9 AM EST Impressions 01/18/2024 10:44 AM EST - One diminutive polyp in the transverse colon, ? removed with a cold snare. Resected and retrieved. ? - Diverticulosis in the sigmoid colon. ? - Internal hemorrhoids. Recommendation: ?- Await pathology results. ? - No repeat colonoscopy due to current age (66 years ? or older). Narrative 01/18/2024 10:44 AM EST [facility] GI Patient Name: Gale Dick Procedure Date: 01/18/2024 10:09 AM Date of : 1950 Age: 73 Gender: Female Note Status: Finalized Attending MD: Wilfredo Cotter MD, Procedure Date No Time: 01/18/2024 Procedure: ? Colonoscopy Indications: ? Iron deficiency anemia, Unexplained iron deficiency ? anemia Providers: ? Wilfredo Cotter MD Referring MD: ?Wilfredo Cotter MD Medicines: ? Monitored Anesthesia Care Complications: ? No immediate complications. Estimated blood loss: ? Minimal. Estimated Blood Loss: ? Estimated blood loss was minimal. Procedure: ? Pre-Anesthesia Assessment: ? - Prior to the procedure, a History and Physical was ? performed, and patient medications and allergies were ? reviewed. The patient is competent. The risks and ? benefits of the procedure and the sedation options and ? risks were discussed with the patient. All questions ? were answered and informed consent was obtained. ? Patient identification and proposed procedure were ? verified by the physician, the nurse, the parts runner ? and the hydro plant technician in the pre-procedure area in the ? endoscopy suite. Mental Status Examination: alert and ? oriented. Airway Examination: normal oropharyngeal ? airway and neck mobility. Respiratory Examination: ? clear to auscultation. CV Examination: normal. ? Prophylactic Antibiotics: The patient does not require ? prophylactic antibiotics. Prior Anticoagulants: The ? patient has taken no anticoagulant or antiplatelet ? agents. ASA Grade Assessment: III - A patient with ? severe systemic disease. After reviewing the risks and ? benefits, the patient was deemed in satisfactory ? condition to undergo the procedure. The anesthesia ? plan was to use monitored anesthesia care (MAC). ? Immediately prior to administration of medications, ? the patient was re-assessed for adequacy to receive ? sedatives. The heart rate, respiratory rate, oxygen ? saturations, blood pressure, adequacy of pulmonary ? ventilation, and response to care were monitored ? throughout the procedure. The physical status of the ? patient was re-assessed after the procedure. ? After I obtained informed consent, the scope was ? passed under direct vision. Throughout the procedure, ? the patient's blood pressure, pulse, and oxygen ? saturations were monitored continuously.The Olympus ? Colonoscope was introduced through the anus and ? advanced to the cecum, identified by appendiceal ? orifice and ileocecal valve. The colonoscopy was ? performed without difficulty. The patient tolerated ? the procedure well. The quality of the bowel ? preparation was good. Findings: ?The perianal and digital rectal examinations were ? normal. ? A diminutive polyp was found in the transverse colon. ? The polyp was sessile. The polyp was removed with a ? cold snare. Resection and retrieval were complete. ? Estimated blood loss was minimal. ? Scattered small-mouthed diverticula were found in the ? sigmoid colon. ? Internal hemorrhoids were found during retroflexion. ? The hemorrhoids were Grade I (internal hemorrhoids ? that do not prolapse). Procedure Code(s): ? --- Professional --- ? 61169, Colonoscopy, flexible; with removal of ? tumor(s), polyp(s), or other lesion(s) by snare ? technique Diagnosis Code(s): ? --- Professional --- ? D12.3, Benign neoplasm of transverse colon (hepatic ? flexure or splenic flexure) CPT copyright 2020 [employer]. All rights reserved. The codes documented in this report are preliminary and upon sharepoint engineer review may be revised to meet current compliance requirements. Wilfredo Cotter MD 01/18/2024 10:44:03 AM This report has been signed electronically.Wilfredo Cotter MD Number of Addenda: 0 Note Initiated On: 01/18/2024 10:09 AM Scope Withdrawal Time: 0 hours 6 minutes 40 seconds Scope In: 10:17:17 AM Scope Out: 10:28:24 AM ? Endoscopy Department at [facility] - [address] [place] [address], ? [place] [address] Procedure Note Wilfredo Cotter MD - 01/18/2024 [facility] GI Patient Name: Gale Dick Procedure Date: 01/18/2024 10:09 AM Date of : 1950 Age: 73 Gender: Female Note Status: Finalized Attending MD: Wilfredo Cotter MD, Procedure Date No Time: 01/18/2024 Procedure: Colonoscopy Indications: Iron deficiency anemia, Unexplained iron deficiency anemia Providers: Wilfredo Cotter MD Referring MD: Wilfredo Cotter MD Medicines: Monitored Anesthesia Care Complications: No immediate complications. Estimated blood loss: Minimal. Estimated Blood Loss: Estimated blood loss was minimal. Procedure: Pre-Anesthesia Assessment: - Prior to the procedure, a History and Physicalwas performed, and patient medications and allergieswere reviewed. The patient is competent. The risks and benefits of the procedure and the sedation optionsand risks were discussed with the patient. Allquestions were answered and informed consent was obtained. Patient identification and proposed procedure were verified by the physician, the nurse, theanesthetist and the hydro plant technician in the pre-procedure area in the endoscopy suite. Mental Status Examination: alertand oriented. Airway Examination: normal oropharyngeal airway and neck mobility. Respiratory Examination: clear to auscultation. CV Examination: normal. Prophylactic Antibiotics: The patient does notrequire prophylactic antibiotics. Prior Anticoagulants: The patient has taken no anticoagulant or antiplatelet agents. ASA Grade Assessment: III - A patient with severe systemic disease. After reviewing the risksand benefits, the patient was deemed in satisfactory condition to undergo the procedure. The anesthesia plan was to use monitored anesthesia care (MAC). Immediately prior to administration of medications, the patient was re-assessed for adequacy to receive sedatives. The heart rate, respiratory rate, oxygen saturations, blood pressure, adequacy of pulmonary ventilation, and response to care were monitored throughout the procedure. The physical status ofthe patient was re-assessed after the procedure. After I obtained informed consent, the scope was passed under direct vision. Throughout theprocedure, the patient's blood pressure, pulse, and oxygen saturations were monitored continuously.The Olympus Colonoscope was introduced through the anus and advanced to the cecum, identified by appendiceal orifice and ileocecal valve. The colonoscopy was performed without difficulty. The patient tolerated the procedure well. The quality of the bowel preparation was good. Findings: The perianal and digital rectal examinations were normal. A diminutive polyp was found in the transversecolon. The polyp was sessile. The polyp was removed with a cold snare. Resection and retrieval were complete. Estimated blood loss was minimal. Scattered small-mouthed diverticula were found inthe sigmoid colon. Internal hemorrhoids were found duringretroflexion. The hemorrhoids were Grade I (internal hemorrhoids that do not prolapse). Procedure Code(s): --- Professional --- 18580, Colonoscopy, flexible; with removal of tumor(s), polyp(s), or other lesion(s) by snare technique Diagnosis Code(s): --- Professional --- D12.3, Benign neoplasm of transverse colon (hepatic flexure or splenic flexure) CPT copyright 2020 [employer]. All rights reserved. The codes documented in this report are preliminary and upon sharepoint engineer reviewmay be revised to meet current compliance requirements. Wilfredo Cotter MD 01/18/2024 10:44:03 AM This report has been signed electronically.Wilfredo Cotter MD Number of Addenda: 0 Note Initiated On: 01/18/2024 10:09 AM Scope Withdrawal Time: 0 hours 6 minutes 40 seconds Scope In: 10:17:17 AM Scope Out: 10:28:24 AM Endoscopy Department at [address] [phone] IMPRESSION: - One diminutive polyp in the transverse colon, removed with a cold snare. Resected andretrieved. - Diverticulosis in the sigmoid colon. - Internal hemorrhoids. Recommendation: - Await pathology results. - No repeat colonoscopy due to current age (66years or older). Wilfredo Cotter MD GI~PROCEDURE ORDERABLES Fin al Result * Annual BMP Blood Test (05/21/2020) Pathologist [facility] Annual BMP Blood Test Abstracted Historical Provider HEALTH MAINTENANCE Final Result * (ABNORMAL) Lipid panel (05/21/2020) [facility] LDL/HDL Ratio 2 0 - 4 Triglycerides 155(A) 0 - 150 mg/dL Cholesterol 192 0 - 200 mg/dL HDL 84 >=40 mg/dL LDL Cholesterol 77 0 - 100 mg/dL Blood Venous blood specimen / Unknown Historical Provider LAB BLOOD ORDERABLES Lu l Result * DXA BONE DENSITY STUDY 1+ SITS AXIAL SKEL (04/01/2020 10:40 AM EST) Anatomical Region Laterality Modality Bone Densitometr y 12/09/2019 3:37 PM EDT Narrative 04/01/2020 4:43 PM EST Clinical history: other osteoporosis Scans of the lumbar spine and hips were performed on a [employer] fan beam bone densitometer. ? Bone mineral density measurements and associated T and Z scores respectively are as follows: Lumbar Spine: L1-L4 BMD: 0.754 g/cm2 ? T-Score: -2.7 ? Z-Score: -0.5 Left Proximal Femur: Neck BMD: 0.631 g/cm2 ? T-Score: -2.0 ?? Z-Score: -0.2 Total BMD: 0.946 g/cm2 ? T-Score: Zero ?Z-Score: 1.4 Compared with standards for the young adult, lowest measured bone density places the patient in the W.H.O. osteoporotic range. IMPRESSION: IMPRESSION: Osteoporosis. The NOF guidelines recommend that FDA approved medical therapies be considered in postmenopausal women and men age >50 years with a: i. Hip or vertebral (clinical or morphometric) fracture ii. T score of < -2.5 at the spine or hip iii. 10 year fracture probability by FRAX of >3% for hip fracture, or >20% for major osteoporotic fracture PLEASE NOTE: ?? W.H.O. classification is based on lowest measured density at the spine, femoral neck, or total hip.This classification has prognostic significance when applied to post menopausal women and older men. 1) ??The World Health Organization defines low BMD as follows: ?T-score ? Normal ? at or > -1 Osteopenia ? < -1 and ??> - 2.5 Osteoporosis ? at or < -2.5 without fractures Established osteoporosis ? < -2.5 with fractures Procedure Note Nancie Huerta MD - 02/01/2022 Clinical history: other osteoporosis Scans of the lumbar spine and hips were performed on a [employer] beam bone densitometer. Bone mineral density measurements and associated T and Z scoresrespectively are as follows: Lumbar Spine: L1-L4 BMD: 0.754 g/cm2 T-Score: -2.7 Z-Score: -0.5 Left Proximal Femur: Neck BMD: 0.631 g/cm2 T-Score: -2.0 Z-Score: -0.2 Total BMD: 0.946 g/cm2 T-Score: Zero Z-Score: 1.4 Compared with standards for the young adult, lowest measured bone densityplaces the patient in the W.H.O. osteoporotic range. IMPRESSION: IMPRESSION: Osteoporosis. The NOF guidelines recommend that FDA approved medical therapies beconsidered in postmenopausal women and men age >50 years with a: i. Hip or vertebral (clinical or morphometric) fracture ii. T score of < -2.5 at the spine or hip iii. 10 year fracture probability by FRAX of >3% for hip fracture, or >20%for major osteoporotic fracture PLEASE NOTE: W.H.O. classification is based on lowest measured density at the spine,femoral neck, or total hip.This classification has prognostic significance when applied to postmenopausal women and older men. 1) The World Health Organization defines low BMD as follows: T-score Normal at or > -1 Osteopenia < -1 and > -2.5 Osteoporosis at or < -2.5 withoutfractures Established osteoporosis < -2.5 with fractures Mali Boswell DO IMG DXA PROCEDURE S Final Result * Hepatitis C Screening (04/01/2014) [facility] Hepatitis C Screening Abstracted Historical Provider HEALTH MAINTENANCE Final Result from Last 3 Months or Most Recently Relevant to Health Maintenance Insurance [facility] MEDICARE MEDICAID - [place] Care Teams Animal Taxonomist Relationship Specialty Start Date End Date Mali Boswell DO [facility] [address] [place] [phone] PCP - General Internal Medicine 01/15/24
--- OUTSIDE RECORDS SUMMARY | 2024-05-13 12:21 | XMS_ITS | Encounter Summary ---
Author Organization [facility] Address [address] [place] [address] Care Team Providers Care Senior Revenue Accountant Name Role Phone Mali Boswell Primary Care Pro vider Encounter Details Date Type Department Care Team (Late st Contact Info) Description 12/08/2023 10:26 AM EDT Hospital Encounter TH HISTORIC ENCOUNTERS EASTERN CONVERSION ONLY Ginette Mcginnis MD [address] [place] [id number] Social History Tobacco Use Types Packs/Day Years [...] on file documented as of this encounter Last Filed [...] is a 73 y.o. female. HPI: 73-year-old Grenadian-speaking female, history and physical done with the [...] total) by mouth daily., Disp: , Rfl: ? ? Soap & Cleansers (VANICREAM) BAR, Apply topically., Disp: , Rfl: ??? triamcinolone (KENALOG) 0.025 % cream, Apply topically 2 (two) times a day., Disp: , Rfl: ??? VITAMIN D PO, Take by mouth., Disp: , Rfl: You are allergic to the following Date Reviewed: 12/08/2023 Allergen Reactions [place] Not Noted Blue Dyes (Parenteral) Not Noted Chocolate Not Noted Milk Not Noted Nickel Not Noted [place] Not Noted Peanuts Not Noted Pear Not [...] deficiency anemia type IRON DEFICIENCY ANEMIA 73-year-old Grenadian-speaking female, history and physical done with the [...] Description 07/09/2024 10:00 AM EDT Office Visit [facility] Hematology Oncology [address] [place] [phone] Ginette Mcginnis MD [address] [place] [address] documented as of this encounter Procedures Procedure Name Priority Date/Time Associated Diagnosis Comments ..MISCELLANEOUS REFERENCE LAB TEST 12/08/2023 documented in this encounter Results * Miscellaneous reference lab test (12/08/2023) us Provider Onbase LAB BLOOD ORDERABLES Final Re sult documented in this encounter Visit Diagnoses Not on filedocumented in this encounter Care Teams Senior Revenue Accountant Relationship Specialty Start Date End Date Mali Boswell DO PCP - General Internal Medicine 01/14/14 12/27/23 documented as of this encounter
--- OUTSIDE RECORDS SUMMARY | 2024-05-13 12:21 | XMS_ITS | Clinical Summary ---
Author Organization [facility] Address [address] [place] [address] Care Team Providers Care Pipe Recovery Specialist Name Role Phone Mali Menendez DO Primary Care P rovider Allergies Active Allergy Reactions Criticality Noted Date Comments [place] 10/02/2019 Blue Dyes (Parenteral) 04/07/2023 Chocolate 10/02/2019 Milk 04/07/2023 Nickel 04/07/2023 [place] 04/07/2023 Peanuts 10/02/2019 Pear 04/07/2023 Wheat 04/07/2023 Medications Medication Sig Dispensed Refills Start Date End Date Status VITAMIN D PO Take by mouth. 0 Active montelukast (SINGULAIR) 10 MG tablet Take 1 tablet (10 mg total) by mouth every night at bedtime. 0 Active albuterol (PROVENTIL) (2.5 MG/3ML) 0.083% nebulizer solution Take 3 mL (2.5 mg total) by nebulization every 6 (six) hours as needed for wheezing. 0 Active fluticasone-salmet devang (ADVAIR) 500-50 MCG/DOSE DISKUS 1 inhalation. by Inhaled route every 12 (twelve) hours. 0 Active amLODIPine (NORVASC) tablet 10 mg Take 1 tablet (10 mg total) by mouth daily. 0 Active atorvastatin (LIPITOR) tablet 20 mg Take 1 tablet (20 mg total) by mouth daily. 0 Active Incontinence Supply Disposable (DISPOSABLE UNDERPADS 30 X36 ) MISC by Does not apply route. 0 Active Albuterol Sulfate 108 (90 Base) MCG/ACT AEPB Inhale into the lungs. 0 Active diphenhydrAMINE (BENADRYL) 25 mg capsule Take 1 capsule (25 mg total) by mouth every 6 (six) hours as needed for itching. 0 Active omeprazole (PriLOSEC) 40 MG capsule Take 1 capsule (40 mg total) by mouth daily. 0 Active desonide (DESOWEN) 0.05 % cream Apply topically 2 (two) times a day. 0 Active Fluocinolone Acetonide Body 0.01 % OIL Apply topically. 0 Active acetaminophen (TYLENOL) 325 MG tablet Take 500 mg by mouth every 6 (six) hours as needed for pain. 0 Active hydrocortisone valerate (WEST-EVAN) 0.2 % ointment Apply topically 2 (two) times a day. 0 Active triamcinolone (KENALOG) 0.025 % cream Apply topically 2 (two) times a day. 0 Active EPINEPHrine 0.3 MG/0.3ML SOAJ Inject 0.3 mL (0.3 mg total) into the muscle once. 0 Active fluticasone (FLONASE) 50 MCG/ACT nasal spray spray/apply 1 spray in each nostril daily. 0 Active cetirizine (ZyrTEC) 10 MG tablet Take 1 tablet (10 mg total) by mouth daily. 0 Active hydrOXYzine (ATARAX) 10 MG tablet Take 25 mg by mouth 3 (three) times a day as needed for itching. 0 Active FLUoxetine (PROzac) 20 MG capsule Take 1 capsule (20 mg total) by mouth daily. 0 Active LORazepam (ATIVAN) 0.5 MG tablet Take 1 tablet (0.5 mg total) by mouth every 6 (six) hours as needed. 0 Active Emollient (VANICREAM LITE) LOTN Apply topically. 0 Active Soap & Cleansers (VANICREAM) BAR Apply topically. 0 Act dinh alclomethasone (ACLOVATE) 0.05 % cream Apply topically 2 (two) times a day. 0 Active ammonium lactate (AMLACTIN) 12 % cream Apply topically as needed for dry skin. 0 Active ferrous sulfate 325 (65 FE) MG EC tablet TAKE 1 TABLET BY MOUTH EVERY DAY 90 tablet 3 02/03/2023 Active Active Problems No known active problems Family History Medical History Relation Name Comments Arthritis Brother Arthritis Daughter Other Paternal Grandfather Breast cancer Sister Diabetes Sister Lung cancer Sister Relation Name Status Comments Brother Daughter Paternal Grandfather Sister Social History Tobacco Use Types Packs/Day Years Used Date Smoking Tobacco: Former Smokeless Tobacco: Never Tobacco Cessation:Counseling Given: Not Answered Alcohol Use Standard Drinks/Week Comments Not Currently 0 (1 standard drink = 0.6 oz pur e alcohol) Sex and Gender Information Value Date Recorded Sex Assigned at Female 04/03/2023 10:25 AM EST Gender Identity Not on file Sexual Orientation Not on file Job Start Date Occupation Industry Not on file Not on file Not on file Last Filed Vital Signs Vital Sign Reading Time Taken Comments Blood Pressure 137/57 12/08/2023 10:32 AM EDT Pulse 72 12/08/2023 10:32 AM EDT Temperature 36.9 ??C (98.4 ??F) 12/08/2023 10:32 AM E DT Respiratory Rate - - Oxygen Saturation 99% 12/08/2023 10:32 AM EDT Inhaled Oxygen Concentration - - Weight 66.4 kg (146 lb 6.4 oz) 12/08/2023 10:32 AM EDT Height 160 cm (5' 3 ) 10/02/2019 9:42 AM EDT Body Mass Index 25.93 10/02/2019 9:42 AM EDT Plan of Treatment Health Maintenance Due Date Last Done Comments Hepatitis C Screening 1950 COVID-19 Vaccine (#1) 05/03/1951 Depression Screening 1960 Preventative Health Evaluation 1966 Colon Cancer Screening (Colonoscopy) 1993 Shingrix-Zoster Vaccine (1 o f 2) 1998 Fall Risk Assessment 2013 Osteoporosis Screening (DEXA Scan) 2013 Influenza Vaccine (#1) 2023 6, 11/10/2014 RSV Adult > 60+ Yrs or (1 - 1-dose 75+ series) 11/04/2023 DTap / Tdap / Td (2 - Td or Tdap) 01/10/2026 01/11/2016 Pneumococcal Vaccine Completed 03/20/2018, 08/12/2016, 06/30/2014 Hepatitis B Vaccines Aged Out No long er eligible based on patient's age to complete this topic RSV Ped < 20 months Aged Out No longe r eligible based on patient's age to complete this topic Care Teams Pipe Recovery Specialist Relationship Specialty Start Date End Date Mali Menendez DO PCP - General Engineering Consultant 10/02/19
== END 2024-05-13 11:47 | disposition home or self-care (01) ==
LOC: HO.HPS 10:54
PROVIDERS: PCP Internal Medicine; Visit Provider Hospitalist
DX: J45.50 Severe persistent asthma, uncomplicated (principal); J30.9 Allergic rhinitis, unspecified; J44.9 Chronic obstructive pulmonary disease, unspecified; J40 Bronchitis, not specified as acute or chronic
CPT/HCPCS: 99214; G2211

== ENCOUNTER → 2024-05-13 10:54 | Outpatient (BNVA) | payer OTHER, SELFPAY | PROVIDERS: PCP Internal Medicine; Visit Provider Hospitalist | DX: J44.9 Chronic obstructive pulmonary disease, unspecified (principal); J45.50 Severe persistent asthma, uncomplicated; J30.9 Allergic rhinitis, unspecified; J40 Bronchitis, not specified as acute or chronic; Z87.891 Personal history of nicotine dependence | CPT/HCPCS: 99212 ==

== ENCOUNTER 2024-06-26 10:48 | Outpatient (REF) | payer OTHER, SELFPAY ==
--- NOTE | 2024-06-26 11:01 | PFT_ITS ---
Spirometry [] Lung Volumes [] Diffusion Capacity [] Methacholine Challenge [] Flow Volume Loops [] MVV [] MIP/MEP(Max inspiratory pressure/Max expiratory pressure) [] 6 Minute Walk Test [] ABG [] Interpretation [] MTDD
[2024-06-26 11:46] VITALS: PULSE 78; O2SAT 96
--- OUTSIDE RECORDS SUMMARY | 2024-06-26 11:54 | XMS_ITS | Encounter Summary ---
Author Organization [facility] Address [address] [place] [address] Care Team Providers Care Salesperson Men'S Furnishings Name Role Phone NestorMali tran DO Primary Care Pro vider Encounter Details Date Type Department Care Team (Late st Contact Info) Description 12/08/2023 10:26 AM EDT Hospital Encounter TH HISTORIC ENCOUNTERS EASTERN CONVERSION ONLY Ginette Mcginnis MD [address] [place] [phone] Social History Tobacco Use Types Packs/Day Years Used Date Smoking Tobacco: Former Cigarettes Q uit: 12/06/2013 Smokeless Tobacco: Never Alcohol Use Standard Drinks/Week Comments Not Currently 0 (1 standard drink = 0.6 oz pur e alcohol) Interpersonal Safety Answer Date Record ed Physical Abuse 05/30/2024 Verbal Abuse 05/30/2024 Comments No Sex and Gender Information Value [...] is a 73 y.o. female. HPI: 73-year-old French-speaking female, history and physical done with the [...] the following Date Reviewed: 12/08/2023 Allergen Reactions [place] Not Noted Blue Dyes (Parenteral) Not Noted Chocolate Not Noted Milk Not Noted Nickel Not Noted [place] Not Noted Peanuts Not Noted Pear Not [...] deficiency anemia type IRON DEFICIENCY ANEMIA 73-year-old French-speaking female, history and physical done with the help of interpretation, maximo mild macrocytic anemia with significant iron deficiency, [...] Care Team (Late st Contact Info) Description 07/01/2024 11:30 AM EDT Consult Thoracic Surgery - [place] [address] [phone] Lucia Padgett MD [address] [facility] Tommy [address] [place] [phone] 07/09/2024 10:00 AM EDT Office Visit [facility] Hematology Oncology [address] [place] [phone] Ginette Mcginnis MD [address] [place] [address] documented as of this encounter Procedures Procedure Name Priority Date/Time Associated Diagnosis Comments ..MISCELLANEOUS REFERENCE LAB TEST 12/08/2023 documented in this encounter Results * Miscellaneous reference lab test (12/08/2023) us Provider Onbase MD LAB BLOOD ORDERABLES Final Re sult documented in this encounter Visit Diagnoses Not on filedocumented in this encounter Care Teams Salesperson Men'S Furnishings Relationship Specialty Start Date End Date Mali Boswell DO PCP - General Internal Medicine 01/14/14 12/27/23 documented as of this encounter
--- OUTSIDE RECORDS SUMMARY | 2024-06-26 11:54 | XMS_ITS ---
Author Name Vinayakluis PARTHA, RN, RD, Gloria Address [address] [place] [address] Phone [phone] [facility] Care Team Providers Care Skip Locator Name Role Phone Gloria Alaniz Unavailable [phone] [facility] Unavailable Reason for Referral Not Available Allergies, adverse reactions, alerts Allergen Type Reaction Severity Status Onset Date Amoxicillin Allergy to substance (disorder) facial swelling Unknown Active N/A Chocolate Allergy to substance (disorder) unsure Unknown Active N/A Coconut Oil Allergy to substance (disorder) unsure Unknown Active N/A isothiazolinones Allergy to substance (disorder) Unknown Active N/A Nickel Allergy to substance (disorder) unsure Unknown Active N/A Penicillin Allergy to substance (disorder) anaphylaxis Unknown Active N/A Sesame Seed (Diagnostic) Allergy to substance (disorder) rash Unknown Active N/A History of medication use Medication Class Instructions Start Date End Date Dupixent 300 mg/2ML Solution Prefilled Syringe Subcutaneous No Data Available 2024-06-18 No Data Available Otezla 30 mg Tab No Data Available 2024-06-18 No Luis a Available Wixela Inhub 500-50 MCG/ACT Aerosol Powder Breath Activated INHALE 1 PUFF BY MOUTH TWICE A DAY FOR 90 DAYS 2023-12-31 No Data Available PARoxetine 40 mg Tab TAKE 1 TABLET BY MO UTH EVERY DAY IN THE MORNING FOR 90 DAYS 2023-07-28 No Data Available Lisinopril 5 mg Tab TAKE 1 TABLET BY JIM TH EVERY DAY 2023-10-03 No Data Available Ferrous Sulfate 325 (65 Fe) MG Tab TAKE 1 TABLET BY MOUTH EVERY DAY 2023-06-27 No Data Available Cetirizine 10 mg Tab TAKE 1 TABLET ORALL Y 2 TIMES A DAY FOR ALLERGIES 2023-04-06 No Data Available Bisacodyl EC 5 mg Tab delayed rel TAKE 2 TABLETS BY MOUTH RIGHT BEFORE BEGINNING BOWEL PREP. SEE INSTRUCTIONS PROVIDED BY THE OFFICE 2024-01-04 No Data Available Otezla 30 mg Tab No Data Available 2023-12-14 No Luis a Available Dupixent 300 mg/2ML Solution Auto-injector No Data Available 2023-06-29 No Data Available Albuterol Sulfate HFA 108 (90 Base) MCG/ACT Aerosol Solution INHALE 2 PUFFS INTO LUNGS EVERY 6 HOURS NEEDED FOR SHORTNESS OF BREATH OR WHEEZING FOR 30 DAYS 2023-11-13 No Data Available Levalbuterol 1.25 mg/3ML Nebulization Solution INHALE 3 ML BY NEBULIZATION 2 TIMES A DAY FOR 90 DAYS 2024-01-15 No Data Available Fluticasone Propionate 50 MCG/ACT Suspension INSTILL 2 SPRAYS IN EACH NOSTRIL ONCE A DAY 2023-09-18 No Data Available Omeprazole 40 mg Cap delayed rel TAKE 1 CAPSULE BY MOUTH 1 TIME EACH DAY. DO NOT CRUSH OR CHEW. 2023-08-14 No Data Available amLODIPine Besylate 10 mg Tab TAKE 1 TABLET BY MOUTH EVERY DAY 2024-01-04 No Data Available Atorvastatin Calcium 40 mg Tab TAKE 1 TABLET BY MOUTH EVERY DAY 2023-09-06 No Data Available Montelukast Sodium 10 mg Tab TAKE 1 TABLET BY MOUTH EVERY DAY 2023-12-06 No Data Available Calcipotriene 0.005 % Crm PLEASE SEE ATT ACHED FOR DETAILED DIRECTIONS 2024-03-18 No Data Available Fluocinonide 0.05 % Solution APPLY TO SCALP TWICE DAILY NEEDED 2024-03-18 No Data Available Halobetasol Propionate 0.05 % Oint PLEASE SEE ATTACHED FOR DETAILED DIRECTIONS 2024-03-18 No Data Available EPINEPHrine 0.3 mg/0.3ML Solution Auto-injector INJECT 1 PEN INTRAMUSCULARLY DIRECTED FOR ANAPHYLAXIS. CALL 911 AFTER USE 2024-04-11 No Data Available Trelegy Ellipta 200-62.5-25 MCG/ACT Aerosol Powder Breath Activated TAKE 1 PUFF BY MOUTH EVERY DAY 2024-05-13 No Data Available Problem List Problem Status Onset Date Resolved Date COPD (chronic obstructive pulmonary disease) Active 2024-06-18 N/A Heart disease, hypertensive, with heart failure Active 2024-06-18 N/A Hyperlipidemia associated wi th type 2 diabetes mellitus Active 2024-06-18 N/A GERD (gastroesophageal reflux disease) Active 07-07-05 N/A Psoriasis Active 2024-06-18 N/A MDD (major depressive disord er), recurrent episode, moderate Active 2024-06-18 N/A Social History Sex Female Functional Status No Information Mental Status No Information Assessments Not Available Plan of Care Not Available
--- OUTSIDE RECORDS SUMMARY | 2024-06-26 11:54 | XMS_ITS | Clinical Summary ---
Author Organization [facility] Address [address] [place] [address] Phone Care Team Providers Care Chassis Wirer Name Role Phone NestorsreesuzyMali redmond DO Primary [...] & Plan: Continue current atorvastatin. Chronic obstructive pulmonar y disease (CMS/HCC V24, CMS/HCC V28) 09/22/2016 Dermatosis 09/22/2016 Murmur, cardiac 03/01/2016 Overview [...] colonoscopy indicated 2021. Asthmatic bronchitis , chronic (CMS/HCC V24, CMS /HCC V28) 07/22/2014 Eczema 04/08/2014 Anxiety 01/20/2014 GERD (gastroesophageal reflux disease) 4 Microscopic hematuria 01/20/2014 Overview (12/19/2023): Seen bu urology 12/25/12 Normal cysto/ f/u 1 yr [facility] transfer note) Encounters Date Type Department Care Team Description 06/05/2024 Telephone Gastroenterology - [facility] [place] [address] [facility] 175 [facility] [address] [place] [address] Shefali Fragoso NP 06/03/2024 Billing Patient Not Present Gastroenterology - [address] [facility] [address] [facility] [address] [place] [address] Reymundo Colon MD Iron deficiency anemia due to chronic blood loss (Primary Dx) 05/30/2024 7:31 AM EDT Anesthesia Event [facility] Endoscopy [address] [place] [phone] Shay Ospina MD 05/30/2024 6:45 AM EDT - 05/30/2024 11:59 PM EDT Hospital Encounter [facility] Endoscopy [address] [place] [phone] Reymundo Colon MD Abrokwah, Foster Myles G, CRNA Spencer, Mark A, MD NITIN (iron deficiency anemia) Discharge Disposition: Home or Self Care 05/30/2024 Telephone Gastroenterology - [address] [place] [phone] Reymundo Colon MD 05/04/2024 8:37 AM EDT - 05/04/2024 11:59 PM EDT Hospital Encounter Radiology Department - [address] [phone] Encounter for screening mammogram for breast cancer Discharge Disposition: Home or Self Care 05/03/2024 Telephone Gastroenterology - [address] [place] [phone] Reymundo Colon MD special procedure 05/02/2024 Telephone Gastroenterology - [facility] [place] [address] [place] [phone] Shilpa Kuhn MA Appointment from Last 3 Months Immunizations Name Administration [...] 2 . UPPER GASTROINTESTINAL ENDOSCOPY 08/09/2016 PROCEDURE: DE UPPER GI ENDOSCOPY PERFORMED; COMMENT: Duodenal biopsies normal. Large hiatal hernia, 4 cm. No bleeding lesions in the hernia. FOOT SURGERY 1960 Left PROCEDURE: HISTORICAL FOOT SURGERY; COMMENT: L foot fx Medical History Medical History Date Comments Osteoarthritis, hand DX:Osteoart hritis, hand COPD (chronic obstructive pu lmonary disease) ([facility] [place]24, [facility] V28) 09/22/2016 DX:COPD (chronic o bstructive pulmonary disease) ([facility]) Asthma DX:Asthma History of tobacco abuse DX:Hist ory of tobacco abuse HTN (hypertension) DX:HTN (hyper tension) Postmenopausal DX:Postmenopausa l Hyperlipidemia 01/20/2014 DX:Hyperlipidemi a Microscopic hematuria 01/20/2014 DX:Microsc opic hematuria; COMMENT: Seen urology 12/25/12 Normal cysto/ f/u 1 yr [facility] 9transfer note) GERD (gastroesophageal reflux disease) [...] 09/22/2016 DX:Dermatosis Asthmatic bronchitis , chron ic ([facility] V24, [facility] V28) 07/22/2014 DX:Asthmatic bronchitis , c hronic ([facility]) Spongiotic dermatitis DX:Spongio tic dermatitis Hypokalemia DX:Hypokalemia Dyslipidemia DX:Dyslipidemia Dermatosis DX:Dermatosis COPD (chronic obstructive pu lmonary disease) ([facility] V24, [facility] V28) DX:COPD (chronic o bstructive pulmonary disease) ([facility]) TR (tricuspid regurgitation) DX: TR (tricuspid regurgitation) Mild aortic stenosis DX:Mild aor tic stenosis Tremor of both hands DX:Tremor o f both hands NITIN (iron deficiency anemia) DX: NITIN (iron deficiency anemia) Asthmatic bronchitis , chron ic ([facility] V24, [facility] V28) DX:Asthmatic bronchitis , c hronic ([facility]) Eczema DX:Eczema Microscopic hematuria DX:Microsc [...] Sign Reading Time Taken Comments Blood Pressure 113/79 05/30/2024 8:23 AM EDT Pulse 74 05/30/2024 8:23 AM EDT Temperature 36.7 ??C (98.1 ??F) 05/30/2024 8:01 AM ED T Respiratory Rate 15 05/30/2024 8:23 AM EDT Oxygen Saturation 96% 05/30/2024 8:13 AM EDT Inhaled Oxygen Concentration - - Weight 66.2 kg (146 lb) 05/30/2024 7:09 AM EDT Height 162.6 cm (5' 4 ) 05/30/2024 7:09 AM EDT Body Mass Index 25.06 05/30/2024 7:09 AM EDT Plan of Treatment Upcoming Encounters Date Type Department Care Team (Late st Contact Info) Description 07/01/2024 11:30 AM EDT Consult Thoracic Surgery - [facility] [address] [facility] [address] [place] [phone] Lucia Padgett MD [address] [facility] [address] [place] [address] 07/09/2024 10:00 AM EDT Office Visit [facility] Hematology Oncology [address] [place] [phone] Ginette Mcginnis MD [address] [place] [address] Health Maintenance Due Date Last Done Comments COVID-19 Vaccine (#1) 1955 Zoster Vaccines (1 of 2) 1998 Depression Screening 01/21/2022 Medicare Annual Wellness Visit 01/21/2022 Social Influencers of Health Screening 01/21/2022 Hypertension/CHF/CAD Annual BMP Blood Test 01/23/2022 05/21/2020 RSV Immunization Adult Patients (1 - 1-dose 75+ series) 11/04/2023 Influenza Vaccine (Season Ended) 2024 01/11/2016, 11/10/2014 Cholesterol Screening (Lipid Panel) 05/21/2025 05/21/2020 Falls Risk Assessment 05/30/2025 05/30/2024 DTaP,Tdap,and Td Vaccines (3 - Td or [...] age to complete this topic Meningococcal B Vaccine Aged Out No l onger eligible based on patient's age to complete this topic RSV Immunization Patients Under 20 months Aged Out No longer eligible based on patient's age to complete this topic Varicella Vaccines Aged Out No longer eligible based on patient's age to complete this topic Procedures Procedure Name Priority Date/Time Associated Diagnosis Comments ENDOSCOPY, SMALL BOWEL Routine 05/30/2024 3:49 PM EDT SMALL BOWEL CAPSULE ENTEROSCOPY Routine 05/30/2024 7:52 AM EDT NITIN (iron deficiency anemia) MG MAMMO DIGITAL SCREENING W BRADY BILAT Routine 05/04/2024 8:54 AM EDT Encounter for screening mammogram for breast cancer COLONOSCOPY Routine 01/18/2024 10:37 AM EST NITIN (iron deficiency anemia) ANNUAL BMP BLOOD TEST Routine 05/21/2020 LIPID PANEL Routine 05/21/2020 DXA BONE DENSITY STUDY 1+ SITS AXIAL SKEL Routine 04/01/2020 10:40 AM EST Other specified disorders of bone density and structure, unspecified site HEPATITIS C SCREENING Routine 04/01/2014 from Last 3 Months or Most Recently Relevant to Health Maintenance Results * Endoscopy, small bowel with ileum (05/30/2024 3:49 PM EDT) Anatomical Region Laterality Modality Endoscopy us Historical Provider GI~PROCEDURE ORDERABLES F inal Result * Endoscopy, GI with capsule (05/30/2024 7:52 AM EDT) Anatomical Region Laterality Modality Endoscopy 05/30/2024 7:38 AM EDT Impressions 05/30/2024 7:54 AM EDT - Tortuous esophagus. ? - Large hiatal hernia. ? - Erosive gastropathy with no stigmata of recent ? bleeding. ? - Normal examined duodenum. ? - Successful completion of the Video Capsule ? Enteroscope placement. ? - No specimens collected. Recommendation: ?- Continue present medications. Narrative 05/30/2024 7:54 AM EDT [facility] GI Patient Name: Gale Dick Procedure Date: 05/30/2024 7:38 AM Date of : 1950 Age: 73 Room: ROOM 15 Gender: Female Note Status: Finalized Attending MD: Reymundo Colon MD, Procedure Date No Time: 05/30/2024 Procedure: ? Upper GI endoscopy Indications: ? Unexplained iron deficiency anemia Providers: ? Reymundo Colon MD Referring MD: ?Reymundo Colon MD Medicines: ? Propofol per Anesthesia Complications: ? No immediate complications. Estimated Blood Loss: ? Estimated blood loss: none. Procedure: ? Pre-Anesthesia Assessment: ? - ASA Grade Assessment: III - A patient with severe ? systemic disease. ? After obtaining informed consent, the endoscope was ? passed under direct vision. Throughout the procedure, ? the patient's blood pressure, pulse, and oxygen ? saturations were monitored continuously. The Olympus ? Gastroscope was introduced through the mouth, and ? advanced to the second part of duodenum. The upper GI ? endoscopy was accomplished without difficulty. The ? patient tolerated the procedure well. Findings: ?The examined esophagus was moderately tortuous. ? A large hiatal hernia was present. ? Multiple erosions with no stigmata of recent bleeding ? were found in the gastric fundus. The erosions were at ? the hiatal hernia margin and were small and shallow ? and not bleeding ? The exam of the stomach was otherwise normal. ? The examined duodenum was normal. Using the endoscope, ? the video capsule enteroscope was advanced into the ? duodenal bulb. Procedure Code(s): ? --- Professional --- ? 94895, Esophagogastroduodenoscopy, flexible, ? transoral; diagnostic, including collection of ? specimen(s) by brushing or washing, when performed ? (separate procedure) Diagnosis Code(s): ? --- Professional --- ? Q39.9, Congenital malformation of esophagus, ? unspecified ? K44.9, Diaphragmatic hernia without obstruction or ? gangrene ? K31.89, Other diseases of stomach and duodenum ? D50.9, Iron deficiency anemia, unspecified CPT copyright 2020 [employer]. All rights reserved. The codes documented in this report are preliminary and upon substation operator chief review may be revised to meet current compliance requirements. Reymundo Colon MD 05/30/2024 7:54:54 AM This report has been signed electronically.Reymundo Colon MD Number of Addenda: 0 Note Initiated On: 05/30/2024 7:38 AM ? Endoscopy Department at [facility] - [address] [place] [address], ? [place] [address] Procedure Note Reymundo Colon MD - 05/30/2024 [facility] GI Patient Name: Gale Dick Procedure Date: 05/30/2024 7:38 AM Date of : 1950 Age: 73 Room: ROOM 15 Gender: Female Note Status: Finalized Attending MD: Reymundo Colon MD, Procedure Date No Time: 05/30/2024 Procedure: Upper GI endoscopy Indications: Unexplained iron deficiency anemia Providers: Reymundo Colon MD Referring MD: Reymundo Colon MD Medicines: Propofol per Anesthesia Complications: No immediate complications. Estimated Blood Loss: Estimated blood loss: none. Procedure: Pre-Anesthesia Assessment: - ASA Grade Assessment: III - A patient with severe systemic disease. After obtaining informed consent, the endoscope was passed under direct vision. Throughout theprocedure, the patient's blood pressure, pulse, and oxygen saturations were monitored continuously. TheOlympus Gastroscope was introduced through the mouth, and advanced to the second part of duodenum. The upperGI endoscopy was accomplished without difficulty. The patient tolerated the procedure well. Findings: The examined esophagus was moderately tortuous. A large hiatal hernia was present. Multiple erosions with no stigmata of recentbleeding were found in the gastric fundus. The erosions wereat the hiatal hernia margin and were small and shallow and not bleeding The exam of the stomach was otherwise normal. The examined duodenum was normal. Using theendoscope, the video capsule enteroscope was advanced into the duodenal bulb. Procedure Code(s): --- Professional --- 18123, Esophagogastroduodenoscopy, flexible, transoral; diagnostic, including collection of specimen(s) by brushing or washing, when performed (separate procedure) Diagnosis Code(s): --- Professional --- Q39.9, Congenital malformation of esophagus, unspecified K44.9, Diaphragmatic hernia without obstruction or gangrene K31.89, Other diseases of stomach and duodenum D50.9, Iron deficiency anemia, unspecified CPT copyright 2020 [employer]. All rights reserved. The codes documented in this report are preliminary and upon substation operator chief reviewmay be revised to meet current compliance requirements. Reymundo Colon MD 05/30/2024 7:54:54 AM This report has been signed electronically.Reymundo Colon MD Number of Addenda: 0 Note Initiated On: 05/30/2024 7:38 AM Endoscopy Department at [facility] - [address] [place] [phone] IMPRESSION: - Tortuous esophagus. - Large hiatal hernia. - Erosive gastropathy with no stigmata of recent bleeding. - Normal examined duodenum. - Successful completion of the Video Capsule Enteroscope placement. - No specimens collected. Recommendation: - Continue present medications. Reymundo Colon MD GI~PROCEDURE ORDERABLES Fin al Result * MG Mammo Digital Screening w Brady bilat (05/04/2024 8:54 AM EDT) Anatomical Region Laterality Modality Breast Bilateral Mammography 05/06/2024 11:4 3 AM EDT Impressions 05/06/2024 12:23 PM EDT Benign. BI-RADS CATEGORY: 1 - NEGATIVE RECOMMENDATION: Screening bilateral mammogram is recommended in 1 year. Mammo Location: [facility], [address] [place] [address], [address], . -------- FINAL REPORT -------- Dictated By: María Reece Dictated Date: 05/06/2024 11:43 ET Assigned Physician: María Reece Reviewed and Electronically Signed By: María Reece Signed Date: 05/06/2024 12:23 ET Workstation ID: [id number] Transcribed By: Self Edit Transcribed Date: 05/06/2024 [...] is recommended in 1 year. Mammo Location: [facility], [address] [place] [address], [address], . -------- FINAL REPORT -------- Dictated By: María Reece Dictated Date: 05/06/2024 11:43 ET Assigned Physician: María Reece Reviewed and Electronically Signed By: María Reece Signed Date: 05/06/2024 12:23 ET Workstation ID: [id number] Transcribed By: Self Edit Transcribed Date: 05/06/2024 11:43 ET Mali Boswell DO IMG BI PROCEDURES Final Result * COLONOSCOPY Anesthesia - MAC; [facility] ENDOSCOPY (01/18/2024 10:37 AM EST) Anatomical Region [...] or older). Narrative 01/18/2024 10:44 AM EST [facility] GI Patient Name: Gale Dick Procedure Date: [...] verified by the physician, the nurse, the languages and literature instructor ? and the motion study technician in the pre-procedure area in the [...] Procedure Code(s): ? --- Professional --- ? 24765, Colonoscopy, flexible; with removal of ? tumor(s), polyp(s), or other lesion(s) by snare ? technique Diagnosis Code(s): ? --- Professional --- ? D12.3, Benign neoplasm of transverse colon (hepatic ? flexure or splenic flexure) CPT copyright 2020 [employer]. All rights reserved. The codes documented in this report are preliminary and upon substation operator chief review may be revised to meet current compliance requirements. Wilfredo Cotter MD 01/18/2024 10:44:03 AM This report has been signed electronically.Wilfredo Cotter MD Number of Addenda: 0 Note Initiated On: 01/18/2024 10:09 AM Scope Withdrawal Time: 0 hours 6 minutes 40 seconds Scope In: 10:17:17 AM Scope Out: 10:28:24 AM ? Endoscopy Department at [facility] - [address] [place] [address], ? [place] [address] Procedure Note Wilfredo Cotter MD - 01/18/2024 [facility] GI Patient Name: Gale Dick Procedure Date: [...] the physician, the nurse, theanesthetist and the motion study technician in the pre-procedure area in the [...] not prolapse). Procedure Code(s): --- Professional --- 99623, Colonoscopy, flexible; with removal of tumor(s), polyp(s), or other lesion(s) by snare technique Diagnosis Code(s): --- Professional --- D12.3, Benign neoplasm of transverse colon (hepatic flexure or splenic flexure) CPT copyright 2020 [employer]. All rights reserved. The codes documented in this report are preliminary and upon substation operator chief reviewmay be revised to meet current compliance requirements. Wilfredo Cotter MD 01/18/2024 10:44:03 AM This report has been signed electronically.Wilfredo Cotter MD Number of Addenda: 0 Note Initiated On: 01/18/2024 10:09 AM Scope Withdrawal Time: 0 hours 6 minutes 40 seconds Scope In: 10:17:17 AM Scope Out: 10:28:24 AM Endoscopy Department at [facility] - [address] [place] [phone] IMPRESSION: - One diminutive polyp in the transverse colon, removed with a cold snare. Resected andretrieved. - Diverticulosis in the sigmoid colon. - Internal hemorrhoids. Recommendation: - Await pathology results. - No repeat colonoscopy due to current age (66years or older). Wilfredo Cotter MD GI~PROCEDURE ORDERABLES Fin al Result * Annual BMP Blood Test (05/21/2020) Pathologist [facility] Annual BMP Blood Test Abstracted Historical Provider HEALTH MAINTENANCE Final Result * (ABNORMAL) Lipid panel (05/21/2020) LDL/HDL Ratio 2 0 - 4 Triglycerides [...] spine and hips were performed on a [employer] fan beam bone densitometer. ? Bone mineral [...] spine and hips were performed on a [employer] beam bone densitometer. Bone mineral density measurements [...] Final Result * Hepatitis C Screening (04/01/2014) [facility] Hepatitis C Screening Abstracted Historical Provider HEALTH MAINTENANCE Final Result from Last 3 Months or Most Recently Relevant to Health Maintenance Insurance [employer] MEDICARE MEDICAID - [place] Care Teams Chassis Wirer Relationship Specialty Start Date End Date Mali Boswell DO [facility] [address] [place] [phone] PCP - General Internal Medicine 01/15/24
--- OUTSIDE RECORDS SUMMARY | 2024-06-26 11:55 | XMS_ITS | Clinical Summary ---
Author Organization [facility] Address [address] [place] [address] Care Team Providers Care Corporate Trainer Name Role Phone Mali Menendez DO Primary Care P rovider Allergies Active Allergy Reactions Criticality Noted Date Comments [place] 10/02/2019 Blue Dyes (Parenteral) 04/07/2023 Chocolate 10/02/2019 Milk 04/07/2023 Nickel 04/07/2023 [place] 04/07/2023 Peanuts 10/02/2019 Pear 04/07/2023 Wheat 04/07/2023 [...] age to complete this topic Care Teams Corporate Trainer Relationship Specialty Start Date End Date Mali Menendez DO PCP - General Keno Manager 10/02/19
== END 2024-06-26 10:49 | disposition home or self-care (01) ==
LOC: HO.RESP 10:48
PROVIDERS: PCP Internal Medicine; Visit Provider Hospitalist
DX: J45.50 Severe persistent asthma, uncomplicated (principal)
CPT/HCPCS: 94010; 94640; 94727; 94729

== ENCOUNTER → 2024-06-26 11:01 | Outpatient (BNV) | payer OTHER, SELFPAY | PROVIDERS: PCP Internal Medicine; Visit Provider Internal Medicine Pulmonary Disease | DX: J44.9 Chronic obstructive pulmonary disease, unspecified (principal) | CPT/HCPCS: 94060; 94727; 94729 ==

== ENCOUNTER 2024-08-12 09:09 | Outpatient (AMB) | payer OTHER, SELFPAY ==
[2024-08-12 09:25] VITALS: BP 120/50; PULSE 78; O2SAT 94; BMI 25.4
--- NOTE | 2024-08-12 09:25 | A.OFFVIS_ITS ---
Vital Signs 08/12/24 09:25 Height 5 ft 2 in Weight 138 lb 14.259 oz BMI 25.4 BP 120/50 L Blood Pressure Location Lt brachial Position Sitting Pulse 78 Pulse Oximetry (%) 94 Oxygen Delivery Method Room Air Intake Visit Reasons: COPD Allergies milk Allergy (Intermediate, Verified 08/12/24 09:27) Hives almond (ALMOND) Allergy (Unknown, Verified 08/12/24 09:27) POSITIVE ALLERGY TEST CLASS 3 coconut (COCONUT) Allergy (Unknown, Verified 08/12/24 09:27) POSITIVE ALLERGY TEST CLASS 3 nickel (NICKEL) Allergy (Unknown, Verified 08/12/24 09:27) POSITIVE ALLERGY TEST peanut (PEANUT) Allergy (Unknown, Verified 08/12/24 09:27) POSITIVE ALLERGY TEST CLASS 3 pecan nut (PECAN) Allergy (Unknown, Verified 08/12/24 09:27) POSITIVE ALLERGY TEST CLASS 2 sesame seed (SESAME SEED) Allergy (Unknown, Verified 08/12/24 09:27) POSITIVE ALLERGY TEST CLASS 3 amoxicillin Allergy (Verified 08/12/24 09:27) Swelling HPI Comments Details: The patient is a 73 year woman with known history of asthma and also tobacco dependency in the past. The patient has significant allergies. She has been following closely with allergy immunology. The patient has significant allergies to foods in addition to environmental allergies. She has been on respiratory therapy. The patient continues to be symptomatic with frequent shortness of breath chest tightness and wheezing. Moderate severity. Recently the patient did have a reaction. She was sent to the hospital for further care. Current the patient has been Wixela. She uses a rescue inhaler on a daily basis. She is feeling well today although she still has wheezing and chest tightness. The patient is a nebulizer. Will start her on nebulized therapy. 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 The patient is a former smoker. She quit smoking between 5 to 8 years ago. She is a candidate for the lung cancer screening program. Will go ahead and refer her at this time. 12/29/2022 the patient is here for pulmonary follow-up visit. The patient has been feeling better. She has been using the combination inhaler and also has been using the budesonide. although she has been feeling better he still complains of daily episodes of wheezing and chest tightness. She does use her rescue inhaler on a daily basis for that reason. She did have her pulmonary function studies demonstrating significant small airways disease consistent with severe asthma and also has a mild obstruction also consistent with her uncontrolled asthma. 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 Still has significant asthma phenotype. Her allergy testing was very abnormal with an elevated IgE and significant allergies to both environmental allergens and foods. based on her uncontrolled asthma on maximum respiratory therapy will go ahead and recommend she start Xolair. The patient already has not EpiPen she knows how to use it. Based on her weight and her IgE level will go ahead and start with 300 mg once a month. The patient may need to increase that to every 2 weeks if she continues to be symptomatic however. She did not attend the lung cancer screening visit. Her daughter had gotten sick and she could not bring her to the appointment. Will go ahead and reschedule that appointment she can follow-up and get her lung cancer screening done. Will follow-up in 3-4 months to assess her progress on the biologic therapy. 03/31/2023 the patient is here for a pulmonary follow-up visit. She had been doing very well. She did start the Xolair injections and they were very affecting beneficial. Although then the patient had a an allergic reaction where she was developing some angioedema. Her lips have been swollen. Denied any stridor. Although she did go to the ER. She did receive epinephrine at that point. After that was unclear if the Xolair could have been the culprit. Therefore she has been holding the Xolair. Based on her significant reaction I do believe that the Xolair could be potentially exacerbating her allergic reac tions. Therefore, best to stop the Xolair. She is completed the prednisone taper. The patient has required multiple prednisone tapers because her significant asthma. The patient has uncontrolled asthma otherwise. She did much better on the Xolair. The patient has an elevated IgE and although her eosinophils are normal she has been on prednisone throughout so therefore difficult to really measure her eosinophils based on her uncontrolled asthma. Therefore, do believe Dupixent would be a better option for her. The patient does benefit from biologic therapy with Dupixent in view of her significant eczema in addition to her severe asthma. In the meantime she is going to continue on the Wixela in the other respiratory medications. 04/27/2023 the patient is here for sick visit. She started developing sore throat. That started developing a cough. The cough has become more congested. She has been also having more shortness of breath with activity. She has been using her nebulizer more often. Therefore she came in today. She did get her blood work including her CBC with differential and IgE level. Again, the patient does have severe persistent asthma due to her allergies and also has a history of eczema. Will try to get her on Dupixent since she had a reaction to Xolair most likely. Therefore, at this point will go ahead and start her on doxycycline. The patient also can start prednisone if no better. She will continue with respiratory treatments. If the patient is no better she will call for further evaluation. I do not believe x-rays needed at this time although if her symptoms do not improve she can always come in for one. 04/27/2023 the patient is here for sick visit. The patient started developing worsening cough chest congestion and a sore throat. Ultimately started developing some wheezing. Symptoms started about a week ago. Denies any fevers or chills or any arthralgias or myalgias. Does not tolerate the fever. No sick contacts in the home. Which still trying to get her on biologic therapy. We have taken off Xolair because of suspicious reaction. In the meantime she does have some rhonchi and wheezing on examination. Will go ahead and send her antibiotics and if she has not better she can start some prednisone as well. She can also use her nebulizer several times a day. The patient should also use a cough expectorate. I am going to go ahead and send the medication to the pharmacy. If the patient is no better she will call the office. In the meantime she is going to have blood work done in order for us to appeal the d enial for the Dupixent biologic therapy injection. 11/13/2023 the patient is here for a pulmonary follow-up visit. Overall she is doing well. She is tolerating the Dupixent injection. She has not required any additional prednisone. She feels like her breathing significantly better. Denies any allergic reactions. No significant conjunctivitis. She continues on the Wixela inhaler. Also been helpful. She has not had to use her rescue inhaler. She does not have 1 available and make sure the to send her went to the pharmacy. No recent imaging studies to review. She did have a CT scan of the chest back in 02/01/2023 which was a rads 1. She is going to have another CT scan at that time. The only significant finding was some calcifications of the coronary arteries. Otherwise the patient is doing well she continue with the therapy continue with Dupixent will follow-up in 6 months. If any new issues arise prior to that she will call for an earlier assessment. Also, prior to her leaving we did talk about vaccines. She is reluctant to getting numerous vaccines but she is willing to take the Prevnar 20 today. She got the Prevnar 20 prior to leaving. 05/13/2024 the patient is here for a pulmonary follow-up visit. Overall the patient has been doing fair. She continues to have wheezing on a regular basis. Chest tightness. Moderate severity. She has been using Dupixent now for several months without any significant improvement that she can see. Although I did emphasize the fact that she has not required any prednisone which is by itself in improvement. She does complaint of nasal congestion postnasal drip. Going to the spring she does have most of her allergies and explained to her that slightly that the allergy that was now more significant. At this point wi ll go ahead and maximize respiratory therapy by switching her from Wixela to Trelegy. Can also increase her antihistamines. The patient also can start more aggressive nasal therapies to minimize allergic exposures. She was supposed to have a CT scan the end of January but she was not able to do it. We have to reschedule. I will re-refer her to the lung cancer screening program for scheduled date. In addition to that will have her come back in 3-4 months with PFTs to assess lung capacity. 08/12/2024 the patient is here for a pulmonary follow-up visit. The patient overall has been doing very well from a respiratory status. Did Dupixent has been very affecting beneficial. She continues use her respiratory medications as prescribed. She has not required her rescue therapy as often. Typically less than 2 times a week. She did undergo surgery for hiatal hernia because she was having issues with ongoing symptoms and also anemia. The patient did undergo a blood transfusion recently and also an iron infusion. She is going to undergo a repeat iron infusions soon. She is still recovering from her surgery. Still has a hard time eating she is very nauseous. She is going to undergo a barium swallow tomorrow. Will hold off on the blood work that we had requested. We did review her PFTs demonstrating obstructive airway disease. But otherwise her lungs are well expanded and with normal gas exchange. Now she does have some atelectasis at the bases likely from abdominal bloating and recent abdominal surgery. Therefore, I did provide her an incentive spirometer for her to practice her deep breathing exercises to minimize atelectasis and avoid pneumonia. [facility] Medical History (Updated 08/12/24 @ 21:59 by Stephen Dunn MD) Bronchitis Aortic valve stenosis Hypertension Hyperlipidemia Asthma-COPD overlap syndrome Asthma Chronic allergic rhinitis Personal history of nicotine dependence GERD (gastroesophageal reflux disease) NITIN (iron deficiency anemia) Thrombocytopenia Vitamin B 12 deficiency Vitamin D deficiency Fatty liver Hiatal hernia Multiple food allergies Osteopenia (~2005) Glaucoma Surgical History (Updated 12/12/22 @ 12:45 by Navya Vyas PA-C) History of colonoscopy Family History (Updated 01/20/23 @ 12:03 by Noreen Vo NP) Sister Breast cancer Father No problems noted. Mother No problems noted. Sister Lung cancer Social History Patient Tobacco Use Status: Former Tobacco user Tobacco use type: Cigarette Cigarette Packs Per Day: 1.25 Years Smoked: 30 Review of Systems Const Denies fever(s) Eyes Denies change in vision ENT Reports as per HPI, Reports dysphagia, Reports nasal congestion and Reports sore throat Card Denies chest pain and Reports dyspnea on exertion Resp Denies change in phlegm color, Denies chest congestion, Reports cough, Reports dyspnea on exertion and Denies wheezing GI Reports as per HPI, Reports abdominal pain, Reports belching, Reports bloating, Reports GI cramping and Reports dysphagia Musc Reports no additional complaints Skin/Breast Denies rash Neuro Reports no additional complaints Endo Denies flushing Daniel/Lymph Denies lymphadenopathy Aller/Immun Denies wheezing Physical Exam Vital Signs: Last Vital Signs Pulse 78 08/12/24 09:25 BP 120/50 L 08/12/24 09:25 Pulse Ox 94 08/12/24 09:25 Oxygen Delivery Method Room Air 08/12/24 09:25 BMI result Body Mass Index 25.4 Const General: comfortable HEENT Head: Yes normocephalic Neck Neck: Yes supple Chest Chest palpation & inspection: normal inspection of the chest Resp Effort & Inspection: normal respiratory effort Auscultation: no rhonchi, no wheezes and diminished lung sounds Cardio Rate: regular rate Rhythm: regular rhythm Heart sounds: S1 normal heart sound present and S2 normal heart sound present GI Palpation (GI): Tenderness to palpation present (GI) Skin General skin exam: no rashes or lesions noted Extrem General: Yes no clubbing, cyanosis or edema Assessment & Plan Assessment & Plan (1) Asthma: Code(s): J45.909 - Unspecified asthma, uncomplicated Category: Medical Qualifiers: Asthma complication type: uncomplicated Asthma persistence: persistent Asthma severity: severe Qualified Code(s): J45.50 - Severe persistent asthma, uncomplicated (2) Chronic allergic rhinitis: Code(s): J30.9 - Allergic rhinitis, unspecified Category: Medical (3) Asthma-COPD overlap syndrome: Code(s): J44.9 - Chronic obstructive pulmonary disease, unspecified Category: Medical (4) Hiatal hernia: Comment: s/p surgical correction Code(s): K44.9 - Diaphragmatic hernia without obstruction or gangrene Category: Medical Plan Trelegy, monitor for visual changes YOGESH as needed Epi pen continue Dupixent 300mg [id number] continue Xopenex as needed zyrtec LDCT F/U with Thoracic surgery for post op abdominal discomfort F/U 6 months Coding Level of Care Code Est Pt Level 4 (35293) Complex EM visit Add On G2211 Diagnoses Severe persistent asthma without complication J45.50 Asthma complication type: uncomplicated Asthma persistence: persistent Asthma severity: severe Chronic allergic rhinitis J30.9 Asthma-COPD overlap syndrome J44.9 Hiatal hernia K44.9 Time Spent (min) 17
== END 2024-08-12 09:53 | disposition home or self-care (01) ==
LOC: HO.HPS 09:10
PROVIDERS: PCP Internal Medicine; Visit Provider Hospitalist
DX: J45.50 Severe persistent asthma, uncomplicated (principal); J30.9 Allergic rhinitis, unspecified; J44.9 Chronic obstructive pulmonary disease, unspecified; K44.9 Diaphragmatic hernia without obstruction or gangrene
CPT/HCPCS: 99213; G2211

== ENCOUNTER → 2024-08-12 09:09 | Outpatient (BNVA) | payer OTHER, SELFPAY | PROVIDERS: PCP Internal Medicine; Visit Provider Hospitalist | DX: J44.89 Other specified chronic obstructive pulmonary disease (principal); J45.50 Severe persistent asthma, uncomplicated; J30.9 Allergic rhinitis, unspecified; K44.9 Diaphragmatic hernia without obstruction or gangrene | CPT/HCPCS: 99212 ==

== ENCOUNTER 2024-10-21 12:58 | Outpatient (AMB) | payer OTHER, SELFPAY ==
--- OUTSIDE RECORDS SUMMARY | 2023-12-08 10:26 | XMS_ITS | Encounter Summary ---
Author Organization Address [address] [place] [address] Care Team Providers Care Hopper Operator Name Role Phone NestorMali tran Primary Care Pro vider Encounter Details Date Type Department Care Team (Late st Contact Info) Description 12/08/2023 10:26 AM EDT Hospital Encounter TH HISTORIC ENCOUNTERS EASTERN CONVERSION ONLY Ginette Mcginnis MD [address] [place] [address] Social History Tobacco Use Types Packs/Day Years Used Date Smoking Tobacco: Former Cigarettes Q uit: 12/06/2013 Smokeless Tobacco: Never Alcohol Use Standard Drinks/Week Comments Not Currently 0 (1 standard drink = 0.6 oz pur e alcohol) Interpersonal Safety Answer Date Record ed Physical Abuse 07/16/2024 Verbal Abuse 07/16/2024 Comments No Sex and Gender Information [...] 10:52 AM EDT documented in this encounter Progress Notes * Ginette Mcginnis MD - 12/08/2023 10:30 AM EDT CHIEF COMPLAINT: Follow-up IDENTIFIER:Gale Dick is a 73 y.o. female. HPI: 73-year-old Thai-speaking female, history and physical done with the [...] the following Date Reviewed: 12/08/2023 Allergen Reactions [place] Not Noted Blue Dyes (Parenteral) Not Noted Chocolate Not Noted Milk Not Noted Nickel Not Noted [place] Not Noted Peanuts Not Noted Pear Not [...] deficiency anemia type IRON DEFICIENCY ANEMIA 73-year-old Thai-speaking female, history and physical done with the [...] reference lab test (12/08/2023) us Provider Onbase LAB BLOOD ORDERABLES Final Re sult documented in this encounter Visit Diagnoses Not on filedocumented in this encounter Care Teams Hopper Operator Relationship Specialty Start Date End Date Mali Boswell DO PCP - General Internal Medicine 01/14/14 12/27/23 documented as of this encounter
[2024-10-21 13:04] VITALS: BP 142/70; PULSE 76; O2SAT 96; BMI 26.4
--- NOTE | 2024-10-21 13:04 | A.OFFVIS_ITS ---
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 Intake Note: Worsening tremors Loader Helper Required: Yes Loader Helper Name: Daughter - Maggi to interpret Accompanied by: Daughter Allergies milk Allergy (Intermediate, Verified 10/21/24 13:08) Hives almond (ALMOND) Allergy (Unknown, Verified 10/21/24 13:08) POSITIVE ALLERGY TEST CLASS 3 coconut (COCONUT) Allergy (Unknown, Verified 10/21/24 13:08) POSITIVE ALLERGY TEST CLASS 3 nickel (NICKEL) Allergy (Unknown, Verified 10/21/24 13:08) POSITIVE ALLERGY TEST peanut (PEANUT) Allergy (Unknown, Verified 10/21/24 13:08) POSITIVE ALLERGY TEST CLASS 3 pecan nut (PECAN) Allergy (Unknown, Verified 10/21/24 13:08) POSITIVE ALLERGY TEST CLASS 2 sesame seed (SESAME SEED) Allergy (Unknown, Verified 10/21/24 13:08) POSITIVE ALLERGY TEST CLASS 3 amoxicillin Allergy (Verified 10/21/24 13:08) Swelling Medication List - Last Reconciled 10/21/24 by Jaleesa Vincent MD albuterol sulfate 2.5 mg (3 mL) inhalation Q4H PRN 30 days albuterol sulfate 90 mcg/actuation 2 inhalations inhalation Q6H PRN 30 days alprazolam 0.5 mg PO DAILY PRN atorvastatin 40 mg PO DAILY budesonide 0.5 mg (2 mL) inhalation BID 30 days cetirizine 10 mg PO BID clobetasol 0.05% topical dupilumab (Dupixent) 300 mg (2 mL) subcut Q2W 4 weeks epinephrine IM QPM ferrous sulfate 325 mg PO DAILY [id number] 200-62.5-25 mcg (Trelegy Ellipta) 1 inh inhalation DAILY 30 days levalbuterol HCl 1.25 mg (3 mL) inhalation BID 90 days lisinopril 5 mg PO DAILY montelukast 10 mg PO DAILY nebulizers As directed paroxetine HCl 40 mg PO DAILY HPI Comments Details: 73y/o Right handed female comes for evaluation of tremors she is accompanied by her daughter who helps with history. Cuca has had on and off simran hand tremors for over 20 years.the tremors are postural and action and for the past few years the tremors are worse and frequently drops things. Now she uses plastic utensils . She has 11 sisters and 4 of them are alive and have tremors she has trouble holding things , trouble writing, applying makeup etc. [facility] Medical History (Updated 10/21/24 @ 13:58 by Jaleesa Vincent MD) Familial tremor Bronchitis Aortic valve stenosis Hypertension Hyperlipidemia Asthma-COPD overlap syndrome Asthma Chronic allergic rhinitis Personal history of nicotine dependence GERD (gastroesophageal reflux disease) NITIN (iron deficiency anemia) Thrombocytopenia Vitamin B 12 deficiency Vitamin D deficiency Fatty liver Hiatal hernia Multiple food allergies Osteopenia (~2005) Glaucoma Surgical History History of colonoscopy Family History Sister Breast cancer Father No problems noted. Mother No problems noted. Sister Lung cancer Social History Patient Tobacco Use Status: Former Tobacco user Tobacco use type: Cigarette Cigarette Packs Per Day: 1.25 Years Smoked: 30 Physical Exam Vital Signs: Last Vital Signs Pulse 76 10/21/24 13:04 BP 142/70 H 10/21/24 13:04 Pulse Ox 96 10/21/24 13:04 Oxygen Delivery Method Room Air 10/21/24 13:04 BMI result Body Mass Index 26.4 Const General: cooperative, healthy appearing and comfortable Nutritional Appearance: average body habitus Orientation/consciousness: patient oriented x3 Eyes Pupils: Equal, round and reactive pupils present Neck Neck: Yes no meningeal signs Neuro Other: Mild simran postural and action tremors FFM and foot taps decreased simran General: patient oriented x3, gait normal, tone normal, moves all extremities, no meningeal signs and no focal motor deficits Cranial nerves: Yes Facial sensation intact/muscles of mastication intact, Yes Equal, round and reactive pupils present, Yes Bilaterally intact EOM present, Yes Nystagmus not present, Yes Normal facial strength present, Yes Midline tongue present, Yes Symmetric palate elevation present and Yes Ability to bilaterally elevate shoulders present Cognition (Neuro): normal cognition Gait exam (Neuro): Antalgic gait present Motor exam (neuro): 5/5 motor strength present throughout and Normal motor muscle tone present throughout Deep tendon reflexes (DTR's): Right triceps reflex intensity grade: 2+, Left triceps reflex intensity grade: 2+, Rt Biceps (C5, C6): 2+, Left biceps reflex intensity grade: 2+, Right brachioradialis reflex intensity grade: 2+, Left brachioradialis reflex intensity grade: 2+, Right patellar reflex intensity grade: 2+ and Left patellar reflex intensity grade: 2+ Coordination: [id number] test normal Assessment & Plan Assessment & Plan (1) Familial tremor: Code(s): G25.0 - Essential tremor Category: Medical Plan No evidence of parkinsons Her tremors are not affecting her ADLS I suggest she continue with hand exercises. Coding Level of Care Code New Pt Level 4 (56931) Diagnoses Familial tremor G25.0
--- OUTSIDE RECORDS SUMMARY | 2024-10-21 15:07 | XMS_ITS | Clinical Summary ---
Author Organization [facility] Address [address] [place] [address] Phone Care Team Providers Care Motion Picture Equipment Supervisor Name Role Phone NestorSara Mali Primary Care Pro vider Allergies Active Allergy Reactions Criticality Noted Date Comments Amoxicillin 06/10/2017 Facial swelling Chocolate 09/07/2016 Diagnosed by allergy testing Coconut Oil Other 09/07/2016 Coconuts by blood testing Isothiazolinones 05/30/2018 Positive patch test Milk Hives 07/01/2024 Reported by patient Nickel 08/30/2016 Nut - Unspecified Other 09/07/2016 Diagnosed by blood testing for rash Peanut 04/12/2016 Ate candy chocolate with peanut and developed throat tightening Pear Hives 07/01/2024 Reported by patient Sesame Seed 09/07/2016 Diagnosed by allergy testing for rash Wheat Hives 07/01/2024 Reported by patient Medications albuterol 2.5 mg /3 mL (0.083 %) nebulizer solution Take 1 Vial by nebulization 4 times daily. 0 Active ALPRAZolam (XANAX) 0.5 mg tablet Take 1 tablet (0.5 mg total) by mouth at bedtime as needed. Active amLODIPine (NORVASC) 10 mg tablet Take 1 Tablet by mouth daily. 2 Active ammonium lactate (AMLACTIN) 12 % cream Apply qd 7 Active polyvinyl alcohol (ARTIFICIAL TEARS) 1.4 % ophthalmic solution INSTILL 1 DROP 4 TIMES PER DAY BOTH EYES 1 Active atorvastatin (LIPITOR) 40 mg tablet TAKE 1 TABLET BY MOUTH EVERY DAY 3 Active blood pressure monitor (Blood Pressure Kit) [...] TIMES A DAY 90 DAYS 1 Active dupilumab (DUPIXENT) 300 mg/2 mL pen 2 mL (300 mg total) every 14 (fourteen) days. Inject 150 mg into the skin every 14 days. - Subcutaneous last shot givrn on 07/01/24 Active EPINEPHrine (EpiPen 2-Harvey) 0.3 mg/0.3 mL injection Inject 1 Syringe as directed as needed (anaphylaxis). 0 Active fluticasone propionate (FLONASE) 50 mcg/actuation nasal spray 2 sprays if needed. 1 Active incontinence pad, liner, disp pad Use four underpads daily for incontinence needs 9 Active incontinence pad, liner, disp (Poise Pantiliners) pad Use five panty liners daily for incontinence needs 9 Active lisinopriL (PRINIVIL,ZESTR IL) 5 mg tablet Take 1 tablet (5 mg total) by mouth 1 (one) time each day. 4 Active montelukast (SINGULAIR) 10 mg tablet Take 1 tablet (10 mg total) by mouth at bedtime. 2 Active emollient base (VANICREAM TOP) Apply topically. Active fluticasone propion-salmete roL (Wixela Inhub) 500-50 mcg/dose diskus inhaler 1 puff 2 (two) times a day. 1 Active PARoxetine (PAXIL) 40 mg tablet 1 tablet (40 mg total) 1 (one) time each day in the morning. Take 1 Tablet by mouth daily. - Oral Active omeprazole (PriLOSEC) [address] capsule Take 1 capsule (40 mg total) by mouth 1 (one) time each day. Do not crush or chew. 90 each 3 5 03/20/19 26 Active polyethylene glycol (MIRALAX) 17 gram packet Take 17 g by mouth 1 (one) time each day. Active Active Problems Problem Noted Date Diagnosed Date S/P hernia surgery 07/17/2024 Hiatal hernia 07/16/2024 Assessment & Plan (08/23/2024 6:45 PM EDT): On 07/30/2024 patient underwent a da Arline paraesophageal hernia repair with mesh and fundoplication. Her barium swallow did show some moderate esophageal dysmotility with some hold- up at the GE junction however no evidence of leakage. She has been tolerating a mechanical soft diet well and was formed that we would advance her to a regular diet moving forward but to continue to have a very small frequent meals throughout the day. I also informed her that I would be refilling her Zofran for times of nausea. She was instructed to contact the thoracic surgical department moving forward on a as needed basis should any issues arise. Assessment & Plan (07/30/2024 4:15 PM EDT): On 07/30/2024 patient underwent a da Arline paraesophageal hernia repair with mesh and fundoplication. She has been tolerating a full liquid diet well and was informed that we will advance her to a soft mechanical diet today. She is to return to the thoracic surgical department in 2 weeks time with a barium swallow study and assessment of her soft mechanical diet. Laparoscopic surgical incisions remain clean dry and intact HTN (hypertension) 12/19/2023 Overview (12/19/2023): Last Assessment & Plan: Reasonably controlled on current amlodipine 10 mg daily, continue Osteoarthritis, hand 12/19/2023 Spongiotic dermatitis 12/19/2023 Allergic rhinitis 05/21/2020 Conjunctivitis, allergic, bilateral 05/21/2020 Psoriasis 04/27/2020 Overview (12/19/2023): Follows at [facility] Started on Otezla, 10/2020 Hypokalemia 01/18/2019 Dyslipidemia 10/02/2017 Overview (12/19/2023): Last Assessment & Plan: Continue current atorvastatin. Chronic obstructive pulmonar y disease ([facility] V24, [facility] V28) 09/22/2016 Dermatosis 09/22/2016 Murmur, cardiac 03/01/2016 [...] normal, no bleeding lesions, diminutive tubular adenomas 2, next colonoscopy indicated 2021. Asthmatic bronchitis , chronic ([facility] V24, [facility] /[facility] V28) 07/22/2014 Eczema 04/08/2014 Anxiety 01/20/2014 GERD (gastroesophageal reflux disease) 4 Microscopic hematuria 01/20/2014 Overview (12/19/2023): Seen bu urology 12/25/12 Normal cysto/ f/u 1 yr [facility] transfer note) Resolved Problems Problem Noted Date Diagnosed Date Resolved Date Incarcerated paraesophageal hernia 07/01/2024 07/17/2024 Alex ulcer 07/01/2024 07/17/2024 Encounters Date Type Department Care Team Description 09/23/2024 Telephone Gastroenterology - [place] [address] [place] [address] Shefali Fragoso NP 08/28/2024 1:27 PM EDT - 08/28/2024 11:59 PM EDT Hospital Encounter [facility] [address] [place] [phone] Iron deficiency anemia, unspecified iron deficiency anemia type (Primary Dx) Discharge Disposition: Home or Self Care 08/28/2024 1:00 PM EDT Office Visit [facility] Hematology Oncology [address] [place] [phone] Ginette Mcginnis MD Iron deficiency anemia, unspecified iron deficiency anemia type (Primary Dx) 08/22/2024 Telephone Thoracic Surgery - [address] [phone] Ericka Barrett RN 08/22/2024 Telephone Lung Screening Program - [address] [phone] Bing Echols AR 08/21/2024 9:00 AM EDT Office Visit Thoracic Surgery - [address] [phone] Severo Rooney, [place] Hiatal hernia (Primary Dx) 08/21/2024 7:37 AM EDT - 08/21/2024 11:59 PM EDT Hospital Encounter [facility] Xray [address] [place] [phone] Incarcerated paraesophageal hernia; Alex ulcer, unspecified ulcer chronicity Discharge Disposition: Home or Self Care 08/14/2024 1:12 PM EDT - 08/14/2024 11:59 PM EDT Hospital Encounter [facility] [address] [place] [phone] Ginette Mcginnis MD Iron deficiency anemia, unspecified iron deficiency anemia type (Primary Dx) Discharge Disposition: Home or Self Care 08/07/2024 1:02 PM EDT - 08/07/2024 11:59 PM EDT Hospital Encounter [facility] [address] [place] [phone] Ginette Mcginnis MD Iron deficiency anemia, unspecified iron deficiency anemia type (Primary Dx) Discharge Disposition: Home or Self Care 07/30/2024 2:15 PM EDT Office Visit Thoracic Surgery - [address] [place] [phone] Severo Rooney, PA Hiatal hernia (Primary Dx) from Last 3 Months Immunizations Name Administration [...] [email or web address]; diverticulosis; diminutive transverse colon tubular adenomas 2. UPPER GASTROINTESTINAL ENDOSCOPY 08/09/2016 PROCEDURE: [place] UPPER GI ENDOSCOPY PERFORMED; COMMENT: Duodenal biopsies normal. Large hiatal hernia, 4 cm. No bleeding lesions in the hernia. FOOT SURGERY 1960 Left PROCEDURE: HISTORICAL FOOT SURGERY; COMMENT: L foot fx PARAESOPHAGEAL HERNIA REPAIR 07/16/2024 N/A Medical History Medical History Date Comments Osteoarthritis, hand DX:Osteoart hritis, hand COPD (chronic obstructive pu lmonary disease) ([facility]/HCC V24, CMS/HCC V28) 09/22/2016 DX:COPD (chronic o bstructive pulmonary disease) ([facility]) History of tobacco abuse DX:Hist ory of tobacco abuse HTN (hypertension) DX:HTN (hyper tension) Postmenopausal DX:Postmenopausa l Hyperlipidemia 01/20/2014 DX:Hyperlipidemi a Microscopic hematuria 01/20/2014 DX:Microsc opic hematuria; COMMENT: Seen bu urology 12/25/12 Normal cysto/ f/u 1 yr [facility] 9transfer note) GERD (gastroesophageal reflux disease) 01/20/2014 DX:GERD (gastroesophageal reflux disease) Anxiety 01/20/2014 DX:Anxiety Eczema 04/08/2014 DX:Eczema Iron deficiency anemia 10/30/2014 DX:Iron d eficiency anemia; COMMENT: Treated with IV iron, summer 2014, ? etiology Mitral regurgitation DX:Mitral r egurgitation; COMMENT: 12/27 echo mild Tricuspid regurgitation 03/01/2016 DX:Tricu spid regurgitation; COMMENT: 12/27 echo mild Mild aortic stenosis 03/01/2016 DX:Mild aor tic stenosis Dermatosis 09/22/2016 DX:Dermatosis Spongiotic dermatitis DX:Spongio tic dermatitis Hypokalemia DX:Hypokalemia Dyslipidemia DX:Dyslipidemia Dermatosis DX:Dermatosis TR (tricuspid regurgitation) DX: TR (tricuspid regurgitation) Tremor of both hands DX:Tremor o f both hands Eczema DX:Eczema History of transfusion Depression Hiatal hernia Ulcerative colitis (CMS/HCC V24, CMS/HCC V28) GI (gastrointestinal bleed) ulce rs in esophagus Family History Medical History Relation Name Comments [...] Orientation Straight 07/16/2024 5: 43 AM EDT Obstetrics History Para Term AB IAB SAB Ectopic Multiple Livin g Live Births 3 3 3 3 Date Outcome GA Total Labor Labor/2nd/3rd Weight Sex Type Anes PTL Neelima A1 A5 Name Clin Term Term Term Last Filed Vital Signs Vital Sign Reading Time Taken Comments Blood Pressure 113/60 08/28/2024 1:57 PM EDT Pulse 74 08/28/2024 1:57 PM EDT Temperature 36.9 C (98.5 F) 08/28/2024 1:57 PM EDT Respiratory Rate 14 08/21/2024 8:51 AM EDT Oxygen Saturation 98% 08/28/2024 1:57 PM EDT Inhaled Oxygen Concentration - - Weight 63 kg (139 lb) 08/28/2024 1:03 PM EDT Height 160 cm (5' 3 ) 08/21/2024 8:51 AM EDT Body Mass Index 24.62 08/21/2024 8:51 AM EDT Plan of Treatment Health Maintenance Due Date Last Done Comments COVID-19 Vaccine (#1) 1955 Zoster Vaccines (1 of 2) 11/04/1967 Medicare Annual Wellness Visit 01/21/2022 Social Influencers of Health Screening 01/21/2022 RSV Immunization Adult Patients (1 - 1-dose 75+ series) 11/04/2023 Depression Screening 02/14/2024 Influenza Vaccine (#1) 2024 01/11/2016, 2014 Cholesterol Screening (Lipid Panel) 05/21/2025 05/21/2020 Hypertension/CHF/CAD Annual BMP Blood Test 07/17/2025 07/17/2024, 07/16/2024, 07/10/2024, Additional history exists Falls Risk Assessment 08/28/2025 08/28/2024 DTaP,Tdap,and Td Vaccines (3 - Td or [...] on patient's age to complete this topic Medical Devices Implanted Type Area Top Screw Device Identifier Shelf Expiration Date Model / Serial / Lot Sealant Fibrin Vistaseal 10ml - [id number] - [id number] Implanted:Qty: 1 on 07/16/2024 by Lcuia Padgett MD at [facility] Hemostasis N/A: Esophagus [employer] 01/10/2026 [id number] / [id number] / [id number] Graft Mesh Enform Biomaterial Lp 8x16cm - [id number] - [id number] Implanted:Qty: 1 on 07/16/2024 by Lucia Padgett MD at [facility] Surgical Mesh Sling Implants N/A: Esophagus [employer] 06/11/2026 [id number] / [id number] / N/A Procedures Procedure Name Priority Date/Time Associated Diagnosis Comments CBC WITH AUTO DIFFERENTIAL Routine 08/21/2024 9:18 AM EDT Iron deficiency anemia, unspecified iron deficiency anemia type B12 deficiency Paraesophageal hernia CBC AND DIFFERENTIAL Routine 08/21/2024 9:18 AM EDT Iron deficiency anemia, unspecified iron deficiency anemia type B12 deficiency Paraesophageal hernia FERRITIN Routine 08/21/2024 9:18 AM EDT Iron deficiency anemia, unspecified iron deficiency anemia type B12 deficiency Paraesophageal hernia IRON AND TIBC Routine 08/21/2024 9:18 AM EDT Iron deficiency anemia, unspecified iron deficiency anemia type B12 deficiency Paraesophageal hernia VITAMIN B12 AND FOLATE Routine 08/21/2024 9:18 AM EDT Iron deficiency anemia, unspecified iron deficiency anemia type B12 deficiency Paraesophageal hernia INTRINSIC FACTOR BLOCKING ANTIBODY Routine 08/21/2024 9:18 AM EDT Iron deficiency anemia, unspecified iron deficiency anemia type B12 deficiency Paraesophageal hernia XR ESOPHAGRAM Routine 08/21/2024 8:30 AM EDT Incarcerated paraesophageal hernia Alex ulcer, unspecified ulcer chronicity BASIC METABOLIC PANEL Routine 07/17/2024 5:55 AM EDT MG MAMMO DIGITAL SCREENING W BRADY BILAT Routine 05/04/2024 8:54 AM EDT Encounter for screening mammogram for breast cancer COLONOSCOPY Routine 01/18/2024 10:37 AM EST NITIN (iron deficiency anemia) LIPID PANEL Routine 05/21/2020 DXA BONE DENSITY STUDY 1+ SITS AXIAL SKEL Routine 04/01/2020 10:40 AM EST Other specified disorders of bone density and structure, unspecified site HM HEPATITIS C SCREENING Routine 04/01/2014 from Last 3 Months or Most Recently Relevant to Health Maintenance Results * (ABNORMAL) Vitamin B12 and folate (08/21/2024 9:18 AM EDT) Vitamin B-12 301 250 - 900 pcg/mL LAB CHEMISTRY METHOD 08/21/2024 12:12 PM EDT [facility] Folate 18.1(H) 2.8 - 17.0 ng/ml LAB CHEMISTRY METHOD 08/21/2024 12:12 PM [facility] Blood Venous blood specimen / Unknown Venipuncture / Unknown 08/21/2024 9:18 AM EDT 08/21/2024 11:07 AM EDT us Ginette Mcginnis MD LAB BLOOD ORDERABLES Final R esult [facility] [address] [place] [address], * (ABNORMAL) CBC auto differential (08/21/2024 9:18 AM EDT) WBC 6.4 4.8 - 10.8 K/mcL LAB HEMETOLOGY METHOD 08/21/2024 11:16 AM [facility] RBC 5.50(H) 3.80 - 4.80 M/mcL LAB HEMETOLOGY METHOD 08/21/2024 11:16 AM [facility] Hemoglobin 13.3 11.5 - 16.0 g/dL LAB HEMETOLOGY METHOD 08/21/2024 11:16 AM [facility] Hematocrit 45.7 35.0 - 47.0 % LAB HEMETOLOGY METHOD 08/21/2024 11:16 AM [facility] MCV 82.8 79.0 - 98.0 FL LAB HEMETOLOGY METHOD 08/21/2024 11:16 AM [facility] MCH 24.1(L) 27.0 - 32.0 pcg LAB HEMETOLOGY METHOD 08/21/2024 11:16 AM [facility] MCHC 29.1(L) 32.0 - 37.0 g/dL LAB HEMETOLOGY METHOD 08/21/2024 11:16 AM [facility] RDW 21.2(H) 11.0 - 15.0 % LAB HEMETOLOGY METHOD 08/21/2024 11:16 AM [facility] Platelets 319 130 - 400 K/mcL LAB HEMETOLOGY METHOD 08/21/2024 11:16 AM [facility] MPV 11.1(H) 7.0 - 11.0 FL LAB HEMETOLOGY METHOD 08/21/2024 11:16 AM [facility] NRBC 0.0 <1.0 % LAB HEMETOLOGY METHOD 08/21/2024 11:16 AM [facility] NRBC Absolute 0.00 <0.10 K/mcL LAB HEMETOLOGY METHOD 08/21/2024 11:16 AM [facility] Neutrophils Relative 67.7 % LAB HEMETOLOGY METHOD 08/21/2024 11:16 AM [facility] Lymphocytes Relative 23.1 % LAB HEMETOLOGY METHOD 08/21/2024 11:16 AM [facility] Monocytes Relative 6.5 % LAB HEMETOLOGY METHOD 08/21/2024 11:16 AM [facility] Eosinophils Relative 1.9 % LAB HEMETOLOGY METHOD 08/21/2024 11:16 AM [facility] Basophils Relative 0.5 % LAB HEMETOLOGY METHOD 08/21/2024 11:16 AM [facility] Immature Granulocytes Relative 0.3 % LAB HEMETOLOGY METHOD 08/21/2024 11:16 AM [facility] Neutrophils Absolute 4.35 1.50 - 7.00 K/mcL LAB HEMETOLOGY METHOD 08/21/2024 11:16 AM [facility] Lymphocytes Absolute 1.48 1.00 - 5.00 K/mcL LAB HEMETOLOGY METHOD 08/21/2024 11:16 AM EDT [facility] Monocytes Absolute 0.42 0.20 - 1.00 K/mcL LAB HEMETOLOGY METHOD 08/21/2024 11:16 AM EDT [facility] Eosinophils Absolute 0.12 0.00 - 0.50 K/mcL LAB HEMETOLOGY METHOD 08/21/2024 11:16 AM EDT [facility] Basophils Absolute 0.03 0.00 - 0.20 K/mcL LAB HEMETOLOGY METHOD 08/21/2024 11:16 AM EDT [facility] Immature Granulocytes Absolute 0.02 0.00 - 0.03 K/mcL LAB HEMETOLOGY METHOD 08/21/2024 11:16 AM EDT [facility] Blood Venous blood specimen / Unknown Venipuncture / Unknown 08/21/2024 9:18 AM EDT 08/21/2024 11:06 AM EDT Ginette Mcginnis MD LAB BLOOD ORDERABLES Final R esult [facility] [address] [place] [address], * Intrinsic factor blocking antibody (08/21/2024 9:18 AM EDT) Pathologist [facility] Intrinsic Factor Blocking Antibody Negative Negative 08/23/2024 10:27 AM EDT [facility] Comment: Positive in 50% of persons with pernicious anemia. Very high serum levels of vitamin B12 may give false positive results for intrinsic factor antibody. No sample should be collected from a patient who has received vitamin B12 injection therapy within the past week. Test performed at [facility], [address] , [place] [address] Iris Hung MD, PhD - Watchmaking Teacher Blood Venous blood specimen / Unknown Venipuncture / Unknown 08/21/2024 9:18 AM EDT 08/21/2024 11:07 AM EDT us Ginette Mcginnis MD LAB BLOOD ORDERABLES Final R esult [place] [address] * Iron and TIBC (08/21/2024 9:18 AM EDT) Iron 70 40 - 150 mcg/dL LAB CHEMISTRY METHOD 08/21/2024 12:14 PM EDT [facility] TIBC 352 250 - 450 mcg/dL LAB CHEMISTRY METHOD 08/21/2024 12:14 PM EDT [facility] Iron Saturation 20 15 - 50 % LAB CHEMISTRY METHOD 08/21/2024 12:14 PM EDT [facility] Blood Venous blood specimen / Unknown Venipuncture / Unknown 08/21/2024 9:18 AM EDT 08/21/2024 11:07 AM EDT us Ginette Mcginnis MD LAB BLOOD ORDERABLES Final R esult Performing Organization Address [facility] Co de Phone Number [facility] [address] [place] [address], * (ABNORMAL) Ferritin (08/21/2024 9:18 AM EDT) Ferritin 302(H) 8 - 252 ng/mL LAB CHEMISTRY METHOD 08/21/2024 12:12 PM EDT [facility] Blood Venous blood specimen / Unknown Venipuncture / Unknown 08/21/2024 9:18 AM EDT 08/21/2024 11:07 AM EDT us Ginette Mcginnis MD LAB BLOOD ORDERABLES Final R esult [facility] [address] [place] [address], * XR Esophagram (08/21/2024 8:30 AM EDT) Anatomical Region Laterality Modality Head and Neck Radiographic Debbie ging 08/21/2024 11:0 5 AM EDT Impressions 08/21/2024 11:10 AM EDT 1. Moderately severe narrowing of the gastroesophageal junction, without significant change since the prior study performed 07/17/2024. This resulted in prolonged holdup of a 13 mm barium tablet. 2. There is no hiatal hernia and there is no evidence of extraluminal contrast. 3. Moderate esophageal dysmotility. The dose-area product for this procedure was 202.10 uGy*m2. PQRI CPT II G9500 -------- FINAL REPORT -------- Dictated By: South Joshi Dictated Date: 08/21/2024 11:05 ET Assigned Physician: South Joshi Reviewed and Electronically Signed By: South Joshi Signed Date: 08/21/2024 11:10 ET Workstation ID: [id number] Transcribed By: Self Edit Transcribed Date: 08/21/2024 11:05 ET Narrative 08/21/2024 11:10 AM EDT HISTORY: The patient is a 73-year-old female who underwent repair of a hiatal hernia on 07/16/2024. Esophagram performed the day following surgery demonstrated narrowing of the distal esophagus likely consequent to postsurgical edema. The patient now presents for follow-up. FINDINGS: Junior Project Manager PA radiograph of the chest demonstrates normal appearance of the bony structures. The cardiac silhouette is within normal limits. The aortic knob is calcified. The lungs and costophrenic angles are clear. There has been no change in appearance of the chest since prior chest radiography performed 10/21/2018. Thin barium was administered orally under fluoroscopic control. There is moderate esophageal dysmotility as evidenced by decreased efficacy of the primary peristaltic stripping wave, tertiary contractions, and slow transit of barium down the esophagus. There is no ulcer or filling defect. There is moderately severe narrowing of the gastroesophageal junction, without significant change since 07/17/2024, again likely consequent to postoperative edema. No other area of narrowing is seen in the esophagus. There is no hiatal hernia. There is no extraluminal contrast and there is therefore no evidence of leakage. Rapid sequence imaging of the hypopharynx during swallowing demonstrates prompt initiation of swallowing. There is normal soft palate elevation and normal epiglottic motion. There is no laryngeal penetration or cristina aspiration. There is no residual in the vallecula nor in the piriform sinuses. A 13 mm barium tablet was readily swallowed but there was prolonged holdup of the tablet at the gastroesophageal junction consequent to narrowing here. Procedure Note South Joshi MD - 08/21/2024 HISTORY: The patient is a 73-year-old female who underwent repair of ahiatal hernia on 07/16/2024. Esophagram performed the day following surgerydemonstrated narrowing of the distal esophagus likely consequent topostsurgical edema. The patient now presents for follow-up. FINDINGS: Junior Project Manager PA radiograph of the chest demonstrates normal appearanceof the bony structures. The cardiac silhouette is within normal limits.The aortic knob is calcified. The lungs and costophrenic angles are clear.There has been no change in appearance of the chest since prior chestradiography performed 10/21/2018. Thin barium was administered orally under fluoroscopic control. There ismoderate esophageal dysmotility as evidenced by decreased efficacy of theprimary peristaltic stripping wave, tertiary contractions, and slowtransit of barium down the esophagus. There is no ulcer or filling defect.There is moderately severe narrowing of the gastroesophageal junction,without significant change since 07/17/2024, again likely consequent topostoperative edema. No other area of narrowing is seen in the esophagus.There is no hiatal hernia. There is no extraluminal contrast and there istherefore no evidence of leakage. Rapid sequence imaging of thehypopharynx during swallowing demonstrates prompt initiation ofswallowing. There is normal soft palate elevation and normal epiglotticmotion. There is no laryngeal penetration or cristina aspiration. There is noresidual in the vallecula nor in the piriform sinuses. A 13 mm bariumtablet was readily swallowed but there was prolonged holdup of the tabletat the gastroesophageal junction consequent to narrowing here. IMPRESSION: 1. Moderately severe narrowing of the gastroesophageal junction, withoutsignificant change since the prior study performed 07/17/2024. This resultedin prolonged holdup of a 13 mm barium tablet. 2. There is no hiatal hernia and there is no evidence of extraluminalcontrast. 3. Moderate esophageal dysmotility. The dose-area product for this procedure was 202.10 uGy*m2. PQRI CPT II G9500 -------- FINAL REPORT -------- Dictated By: South Joshi Dictated Date: 08/21/2024 11:05 ET Assigned Physician: South Joshi Reviewed and Electronically Signed By: South Joshi Signed Date: 08/21/2024 11:10 ET Workstation ID: [id number] Transcribed By: Self Edit Transcribed Date: 08/21/2024 11:05 ET Lucia Padgett MD IM FLUOROSCOPY PROCEDURES Final Result * (ABNORMAL) Basic metabolic panel (07/17/2024 5:55 AM EDT) Sodium 141 133 - 145 mmol/L LAB CHEMISTRY METHOD 07/17/2024 7:29 AM [facility] Potassium 3.5 3.5 - 5.5 mmol/L LAB CHEMISTRY METHOD 07/17/2024 7:29 AM [facility] Chloride 108 96 - 110 mmol/L LAB CHEMISTRY METHOD 07/17/2024 7:29 AM [facility] CO2 26 21 - 32 mmol/L LAB CHEMISTRY METHOD 07/17/2024 7:29 AM [facility] Anion Gap 7 3 - 11 LAB CHEMISTRY METHOD 07/17/2024 7:29 AM [facility] Glucose 119(H) 70 - 100 mg/dL LAB CHEMISTRY METHOD 07/17/2024 7:29 AM [facility] BUN 11 5 - 25 mg/dL LAB CHEMISTRY METHOD 07/17/2024 7:29 AM [facility] Creatinine 0.67 0.50 - 1.10 mg/dL LAB CHEMISTRY METHOD 07/17/2024 7:29 AM EDT [facility] eGFR 91 >=60 mL/min/1. 73m2 LAB CHEMISTRY METHOD 07/17/2024 7:29 AM EDT [facility] Comment:Calculation based on the Chronic Kidney Disease Epidemiology Collaboration (CKD-EPI) equation refit without adjustment for race. BUN/Creatinine Ratio 16.4 LAB CHEMISTRY METHOD 07/17/2024 7:29 AM EDT [facility] Calcium 9.0 8.5 - 10.5 mg/dL LAB CHEMISTRY METHOD 07/17/2024 7:29 AM EDT [facility] Blood Venous blood specimen / Unknown Venipuncture / Unknown 07/17/2024 5:55 AM EDT 07/17/2024 6:41 AM EDT us Severo BARAH[facility] LAB BLOOD ORDERABLES Fin al Result [facility] [address] [place] [address], [place] [phone] * MG Mammo Digital Screening w Brady bilat (05/04/2024 8:54 AM EDT) Anatomical Region Laterality Modality Breast Bilateral Mammography 05/06/2024 11:4 3 AM EDT Impressions 05/06/2024 12:23 PM EDT Benign. BI-RADS CATEGORY: 1 - NEGATIVE RECOMMENDATION: Screening bilateral mammogram is recommended in 1 year. Mammo Location: [facility], [address] [place] [address], [phone], . -------- FINAL REPORT -------- Dictated By: María Reece Dictated Date: 05/06/2024 11:43 ET Assigned Physician: María Reece Reviewed and Electronically Signed By: María Reece Signed Date: 05/06/2024 12:23 ET Workstation ID: [id number] Transcribed By: Self Edit Transcribed Date: 05/06/2024 11:43 ET Narrative 05/06/2024 12:23 PM EDT CLINICAL: 73 years old, Female, routine annual exam. COMPARISON: Mammograms dating back to 03/25/2017 with most recent of 04/08/2023. TECHNIQUE: Bilateral MLO and CC views were obtained digitally with 3-D mammogram (digital breast tomosynthesis). Computer-aided detection was utilized in evaluation of this exam (CAD). FINDINGS: There is no evidence of suspicious mass or architectural distortion. No worrisome calcifications are evident. There has been no significant change from prior exam(s). BREAST DENSITY: B - [...] is recommended in 1 year. Mammo Location: [facility], [address] [place] [address], [id number], . -------- FINAL REPORT -------- Dictated By: María Reece Dictated Date: 05/06/2024 11:43 ET Assigned Physician: María Reece Reviewed and Electronically Signed By: María Reece Signed Date: 05/06/2024 12:23 ET Workstation ID: [id number] Transcribed By: Self Edit Transcribed Date: 05/06/2024 11:43 ET us Mali Delgado-Sara DO IMG BI PROCEDURES Final Result * COLONOSCOPY Anesthesia - MAC; [facility] ENDOSCOPY (01/18/2024 10:37 AM EST) Anatomical Region Laterality Modality Endoscopy 01/18/2024 10:0 9 AM EST Impressions 01/18/2024 10:44 AM EST - One diminutive polyp in the transverse colon, removed with a cold snare. Resected and retrieved. - Diverticulosis in the sigmoid colon. - Internal hemorrhoids. Recommendation: - Await pathology results. - No repeat colonoscopy due to current age (66 years or older). Narrative 01/18/2024 10:44 AM EST [facility] Patient Name: Debbie Whittington Procedure Date: 01/18/2024 10:09 AM Date of [...] the procedure, a History and Physical was performed, and patient medications and allergies were reviewed. The patient is competent. The risks and benefits of the procedure and the sedation options and risks were discussed with the patient. All questions were answered and informed consent was obtained. Patient identification and proposed procedure were verified by the physician, the nurse, the sports bookmaker and the turbine technician in the pre-procedure area in the endoscopy suite. Mental Status Examination: alert and oriented. Airway Examination: normal oropharyngeal airway and neck mobility. Respiratory Examination: clear to auscultation. CV Examination: normal. Prophylactic Antibiotics: The patient does not require prophylactic antibiotics. Prior Anticoagulants: The patient has taken no anticoagulant or antiplatelet agents. ASA Grade Assessment: III - A patient with severe systemic disease. After reviewing the risks and benefits, the patient was deemed in satisfactory condition to undergo the procedure. The anesthesia plan was to use monitored anesthesia care (MAC). Immediately prior to administration of medications, the patient was re-assessed for adequacy to receive sedatives. The heart rate, respiratory rate, oxygen saturations, blood pressure, adequacy of pulmonary ventilation, and response to care were monitored throughout the procedure. The physical status of the patient was re-assessed after the procedure. After I obtained informed consent, the scope was passed under direct vision. Throughout the procedure, the patient's blood pressure, pulse, and oxygen [...] polyp was found in the transverse colon. The polyp was sessile. The polyp was removed with a cold snare. Resection and retrieval were complete. Estimated blood loss was minimal. Scattered small-mouthed diverticula were found in the sigmoid colon. Internal hemorrhoids were found during retroflexion. The hemorrhoids were Grade I (internal hemorrhoids that do not prolapse). Procedure Code(s): --- Professional --- 14294, Colonoscopy, flexible; with removal of tumor(s), polyp(s), or other lesion(s) by snare technique Diagnosis Code(s): --- Professional --- D12.3, Benign neoplasm of transverse colon (hepatic flexure or splenic flexure) CPT copyright 2020 [employer]. All rights reserved. The codes documented in this report are preliminary and upon financial legal assistant review may be revised to meet current compliance requirements. Wilfredo Cotter MD 01/18/2024 10:44:03 AM This report has been signed electronically.Wilfredo Cotter MD Number of Addenda: 0 Note Initiated On: 01/18/2024 10:09 AM Scope Withdrawal Time: 0 hours 6 minutes 40 seconds Scope In: 10:17:17 AM Scope Out: 10:28:24 AM Endoscopy Department at [facility] - [address] [place] [id number] Procedure Note Wilfredo Cotter MD - 01/18/2024 [facility] Patient Name: Debbie Whittington Procedure Date: 01/18/2024 10:09 AM Date of [...] the physician, the nurse, theanesthetist and the turbine technician in the pre-procedure area in the [...] not prolapse). Procedure Code(s): --- Professional --- 82810, Colonoscopy, flexible; with removal of tumor(s), polyp(s), or other lesion(s) by snare technique Diagnosis Code(s): --- Professional --- D12.3, Benign neoplasm of transverse colon (hepatic flexure or splenic flexure) CPT copyright 2020 [employer]. All rights reserved. The codes documented in this report are preliminary and upon financial legal assistant reviewmay be revised to meet current compliance requirements. Wilfredo Cotter MD 01/18/2024 10:44:03 AM This report has been signed electronically.Wilfredo Cotter MD Number of Addenda: 0 Note Initiated On: 01/18/2024 10:09 AM Scope Withdrawal Time: 0 hours 6 minutes 40 seconds Scope In: 10:17:17 AM Scope Out: 10:28:24 AM Endoscopy Department at [facility] - [address] [place] [phone] IMPRESSION: - One diminutive polyp in the transverse colon, removed with a cold snare. Resected andretrieved. - Diverticulosis in the sigmoid colon. - Internal hemorrhoids. Recommendation: - Await pathology results. - No repeat colonoscopy due to current age (66years or older). Wilfredo Cotter MD GI~PROCEDURE ORDERABLES Fin al Result * (ABNORMAL) Lipid panel (05/21/2020) LDL/HDL [...] spine and hips were performed on a [employer] fan beam bone densitometer. Bone mineral density measurements [...] >20% for major osteoporotic fracture PLEASE NOTE: W.H.O. classification is based on lowest measured density at the spine, femoral neck, or total hip.This classification has prognostic significance when applied to post menopausal women and older men. 1) The World Health Organization defines low BMD as follows: T-score Normal at or > -1 Osteopenia < -1 and > -2.5 Osteoporosis at or < -2.5 without fractures Established osteoporosis < -2.5 with fractures Procedure Note Nancie Huerta MD - 02/01/2022 Clinical history: other osteoporosis Scans of the lumbar spine and hips were performed on a [employer] beam bone densitometer. Bone mineral density measurements [...] Final Result * Hepatitis C Screening (04/01/2014) Pathologist [facility] Hepatitis C Screening Abstracted Historical Provider HEALTH MAINTENANCE Final Result from Last 3 Months or Most Recently Relevant to Health Maintenance Insurance MEDICAID - [place] [employer] MEDICARE Advance Directives * Full Code - Default (Latest Code Status on File) Date Activated Date Inactivated Comments 07/16/2024 11:43 AM 07/17/2024 6:20 PM This is order is used when code status has not been discussed with the patient, or code status is otherwise unknown/unconfirmed To update the patient's code status, place a code status order. Do not modify or discontinue any currently active code status orders. * Full Code - Default Date Activated Date Inactivated Comments 07/16/2024 6:02 AM 07/16/2024 11:43 AM This is order is used when code status has not been discussed with the patient, or code status is otherwise unknown/unconfirmed To update the patient's code status, place a code status order. Do not modify or discontinue any currently active code status orders. Care Teams Motion Picture Equipment Supervisor Relationship Specialty Start Date End Date Mali Boswell DO [facility] [address] [place] [phone] PCP - General Internal Medicine 01/15/24
--- OUTSIDE RECORDS SUMMARY | 2024-10-21 15:07 | XMS_ITS ---
Author Name [place] Obrien APRN Address [address] [place] [address] Phone [phone] [facility] [employer] [facility] Care Team Providers Care Heater Room Helper Name Role Phone Wendy Obrien Unavailable [phone] [facility] Unavailable [phone] [facility] Unavailable Unavailable Unavailable [phone] Reason for Referral Not Available Allergies, adverse [...] List Problem Status Onset Date Resolved Date Synopsis COPD (chronic obstructive pulmonary disease) Active 2024-06-18 N/A Rx: albuterol , fluticasone, levalbuterol, trelegy, wixela importance of small meals, medication compliance, breathing techniques, and weight loss. Heart disease, hypertensive, with heart failure Active 2024-06-18 N/A Rx: amlodipine, lisinopril-important for patient to have a low Na Diet or no sodium, daily weights, no alcohol, no smoking, importance of exercise, and weight loss. Hyperlipidemia associated with type 2 diabetes mellitus Active 2024-06-18 N/A Rx: atorvastatin weight management, exercising regularly, eating a diet low in saturated or transfat, no smoking, and limiting alcohol intake. GERD (gastroesophageal reflux disease) Active 2024-06-18 N/A Rx: omeprazole D on't lie down for at least 2 to 3 hours after eating small meals, avoid fatty foods, avoid spicy food, avoid chocolate, avoided caffeinated drinks, avoid alcoholic beverages. Psoriasis Active 2024-06-18 N/A Rx: joe booth MDD (major depressive disorder), recurrent episode, moderate Active 2024-06-18 N/A Rx: paroxetine -patient educated on the importance of f/u with phycologist and psychiatrist , importance of medication compliance and not to stop abruptly. also patient made aware not to mix medications with alcohol. if patient is presenting an episode of depression to seek medical assistance or to call [facility]. Social History Sex Female Functional Status No Information Mental Status No Information Assessments Not Available Plan of Care Not Available
--- OUTSIDE RECORDS SUMMARY | 2024-10-21 15:07 | XMS_ITS | Clinical Summary ---
Author Organization [facility] Address [address] [place] [address] Care Team Providers Care Submarine Element Coordinator Name Role Phone Mali Menendez DO Primary Care P rovider Allergies Active Allergy Reactions Criticality Noted Date Comments [place] 10/02/2019 Blue Dyes (Parenteral) 04/07/2023 Chocolate 10/02/2019 Milk 04/07/2023 [place] 04/07/2023 [place] 04/07/2023 Peanuts 10/02/2019 Pear 04/07/2023 Wheat 04/07/2023 [...] 72 12/08/2023 10:32 AM EDT Temperature 36.9 C (98.4 F) 12/08/2023 10:32 AM EDT Respiratory Rate - - Oxygen Saturation 99% [...] Assessment 2013 Osteoporosis Screening (DEXA Scan) 2013 RSV Adult > 60+ Yrs or (1 - 1-dose 75+ series) 11/04/2023 Influenza Vaccine (#1) 2024 6, 11/10/2014 DTap / Tdap / Td (2 - Td or Tdap) 01/10/2026 01/11/2016 Pneumococcal Vaccine Completed 03/20/2018, 08/12/2016, 06/30/2014 Hepatitis B Vaccines Aged Out No long er eligible based on patient's age to complete this topic RSV Ped < 20 months Aged Out No longe r eligible based on patient's age to complete this topic Care Teams Submarine Element Coordinator Relationship Specialty Start Date End Date Mali Menendez DO PCP - General Validation Consultant 10/02/19
== END 2024-10-21 13:51 | disposition home or self-care (01) ==
LOC: HO.HSMS 12:59
PROVIDERS: PCP Internal Medicine; Visit Provider Psychiatry & Neurology Neurology
DX: G25.0 Essential tremor (principal)
CPT/HCPCS: 99204

== ENCOUNTER → 2024-10-21 12:58 | Outpatient (BNVA) | payer OTHER, SELFPAY | PROVIDERS: PCP Internal Medicine; Visit Provider Psychiatry & Neurology Neurology | DX: G25.0 Essential tremor (principal) | CPT/HCPCS: 99202 ==

== ENCOUNTER 2025-01-31 08:33 | Outpatient (AMB) | payer OTHER, SELFPAY ==
--- OUTSIDE RECORDS SUMMARY | 2023-12-08 09:26 | XMS_ITS | Encounter Summary ---
Author Organization [facility] Address [address] [place] [address] Care Team Providers Care Microcomputer Technician Name Role Phone NestorMali tran Primary Care Pro vider Encounter Details Date Type Department Care Team (Late st Contact Info) Description 12/08/2023 10:26 AM EDT Hospital Encounter TH HISTORIC ENCOUNTERS EASTERN CONVERSION ONLY Ginette Mcginnis MD [address] [place] [address] Social History Tobacco Use Types Packs/Day Years Used Date Smoking Tobacco: Former Cigarettes 0 Q uit: 12/06/2013 Smokeless Tobacco: Never Alcohol Use Standard Drinks/Week Comments Not Currently 0 (1 standard drink = 0.6 oz pur e alcohol) Interpersonal Safety Answer Date Record ed Physical Abuse Unrecognized value 07/16/2024 Verbal Abuse Unrecognized value 07/16/2024 Comments No Sex and Gender Information Value Date Recorded Sex Assigned at Female 07/16/2024 5:43 AM EDT Legal Sex Female 6:12 AM EST Gender Identity Female 07/16/2024 5:43 AM EDT Sexual Orientation Straight 07/16/2024 5: 43 AM EDT documented as of this encounter Last Filed Vital Signs Vital Sign Reading Time Taken Comments Blood Pressure 137/57 12/08/2023 10:32 AM EDT Sitting Left arm Pulse 72 12/08/2023 10:32 AM EDT Temperature - - Respiratory Rate - - Oxygen Saturation - - Inhaled Oxygen Concentration - - Weight 66.4 kg (146 lb 6.4 oz) 12/08/2023 10:32 AM EDT Height 160 cm (5' 3 ) 10/02/2019 9:42 AM EDT Body Mass Index 25.13 07/12/2023 10:52 AM EDT documented in this encounter Functional Status * Calculated C-SSRS Risk Score (Lifetime/Recent) Answer Date of Assessment Author No Risk Indicated 07/16/2024 6:02 PM EDT Kristin Amador RN * [place] Suicide Severity Rating Scale (Screener/Recent Self-Report) Question Answer Date of Assessment Author 1. Wish to be (Past 1 Month) No 07/16/2024 6:02 PM EDT Kristin Brito RN 2. Non-Specific Active Suicidal Thoughts (Past 1 Month) No 07/16/2024 6:02 PM EDT Kristin Brito RN 6. Suicidal Behavior (Lifetime) No 07/16/2024 6:02 PM EDT Kristin Brito RN documented as of this encounter Progress Notes * Ginette Mcginnis MD - 12/08/2023 10:30 AM EDT CHIEF COMPLAINT: Follow-up IDENTIFIER:Gale Dick is a 73 y.o. female. HPI: 73-year-old Venezuelan-speaking female, history and physical done with the help of interpretation who has mild microcytic anemia of iron deficiency, was supposed to have GI workup earlier this year but because of insurance reason could not have that done, patient has been feeling fair but recent lab few weeks ago showed again mild anemia with significant iron deficiency ROS: Feeling fair, sometime mild fatigue No chest pain shortness of breath No significant abdominal pain discomfort Denies any obvious blood loss Past Medical History: Diagnosis Date ??? Anxiety ??? Asthmatic bronchitis , chronic (HCC) ??? COPD (chronic obstructive pulmonary disease) (HCC) ??? Dermatosis ??? Dyslipidemia ??? Eczema ??? GERD (gastroesophageal reflux disease) ??? History of tobacco use ??? Hypertension ??? Hypokalemia ??? NITIN (iron deficiency anemia) ??? Microscopic hematuria ??? Mild aortic stenosis ??? Mitral regurgitation ??? Osteoarthritis, hand ??? TR (tricuspid regurgitation) ??? Tremor of both hands SOCIAL HISTORY: Social History Tobacco Use ??? Smoking status: Former ??? Smokeless tobacco: Never Substance Use Topics ??? Alcohol use: Not Currently FAMILY HISTORY: Family History Problem Relation Age of Onset ??? Diabetes Sister ??? Breast cancer Sister ??? Lung cancer Sister ??? Arthritis Brother ??? Other Paternal Grandfather ??? Arthritis Daughter Family Status Relation Name Status ??? Sister (Not Specified) ??? Brother (Not Specified) ??? PGF (Not Specified) ??? Daughter (Not Specified) Current Outpatient Medications: ??? acetaminophen (TYLENOL) 325 MG tablet, Take 500 mg by mouth every 6 (six) hours as needed for pain., Disp: , Rfl: ??? albuterol (PROVENTIL) (2.5 MG/3ML) 0.083% nebulizer solution, Take 3 mL (2.5 mg total) by nebulization every 6 (six) hours as needed for wheezing., Disp: , Rfl: ??? Albuterol Sulfate 108 (90 Base) MCG/ACT AEPB, Inhale into the lungs., Disp: , Rfl: ??? alclomethasone (ACLOVATE) 0.05 % cream, Apply topically 2 (two) times a day., Disp: , Rfl: ??? amLODIPine (NORVASC) tablet 10 mg, Take 1 tablet (10 mg total) by mouth daily., Disp: , Rfl: ??? ammonium lactate (AMLACTIN) 12 % cream, Apply topically as needed for dry skin., Disp: , Rfl: ??? atorvastatin (LIPITOR) tablet 20 mg, Take 1 tablet (20 mg total) by mouth daily., Disp: , Rfl: ??? cetirizine (ZyrTEC) 10 MG tablet, Take 1 tablet (10 mg total) by mouth daily., Disp: , Rfl: ??? desonide (DESOWEN) 0.05 % cream, Apply topically 2 (two) times a day., Disp: , Rfl: ??? diphenhydrAMINE (BENADRYL) 25 mg capsule, Take 1 capsule (25 mg total) by mouth every 6 (six) hours as needed for itching., Disp: , Rfl: ??? Emollient (VANICREAM LITE) LOTN, Apply topically., Disp: , Rfl: ??? EPINEPHrine 0.3 MG/0.3ML SOAJ, Inject 0.3 mL (0.3 mg total) into the muscle once., Disp: , Rfl: ??? ferrous sulfate 325 (65 FE) MG EC tablet, TAKE 1 TABLET BY MOUTH EVERY DAY, Disp: 90 tablet, Rfl: 3 ??? Fluocinolone Acetonide Body 0.01 % OIL, Apply topically., Disp: , Rfl: ??? FLUoxetine (PROzac) 20 MG capsule, Take 1 capsule (20 mg total) by mouth daily., Disp: , Rfl: ??? fluticasone (FLONASE) 50 MCG/ACT nasal spray, spray/apply 1 spray in each nostril daily., Disp:, Rfl: ??? fluticasone-salmeterol (ADVAIR) 500-50 MCG/DOSE DISKUS, 1 inhalation. by Inhaled route every 12(twelve) hours., Disp: , Rfl: ??? hydrocortisone valerate (WEST-EVAN) 0.2 % ointment, Apply topically 2 (two) times a day., Disp:, Rfl: ??? hydrOXYzine (ATARAX) 10 MG tablet, Take 25 mg by mouth 3 (three) times a day as needed for itching., Disp: , Rfl: ??? Incontinence Supply Disposable (DISPOSABLE UNDERPADS 30 X36 ) MISC, by Does not apply route., Disp: , Rfl: ??? LORazepam (ATIVAN) 0.5 MG tablet, Take 1 tablet (0.5 mg total) by mouth every 6 (six) hours as needed., Disp: , Rfl: ??? montelukast (SINGULAIR) 10 MG tablet, Take 1 tablet (10 mg total) by mouth every night at bedtime., Disp: , Rfl: ??? omeprazole (PriLOSEC) 40 MG capsule, Take 1 capsule (40 mg total) by mouth daily., Disp: , Rfl: Soap & Cleansers (VANICREAM) BAR, Apply topically., Disp: , Rfl: ??? triamcinolone (KENALOG) 0.025 % cream, Apply topically 2 (two) times a day., Disp: , Rfl: ??? VITAMIN D PO, Take by mouth., Disp: , Rfl: You are allergic to the following Date Reviewed: 12/08/2023 Allergen Reactions [place] Not Noted Blue Dyes (Parenteral) Not Noted Chocolate Not Noted Milk Not Noted Nickel Not Noted [place] Not Noted Peanuts Not Noted Pear Not Noted Wheat Not Noted PHYSICAL EXAM: BP 137/57 (BP Location: Left arm) Pulse 72 Temp 98.4 ??F (36.9 ??C) (Temporal) Wt 66.4 kg (146 lb 6.4 oz) SpO2 99% BMI 25.93 kg/m?? ECOG 0 APPEARANCE: Alert and oriented in no acute distress EYES: nonicteric sclera pink conjunctiva ORAL CAVITY: No erythema or exudates NECK: Neck supple, no significant adenopathy, HEART: normal S1 and S2 LUNG: clear to auscultation bilaterally LYMPH NODES: No palpable superficial adenopathy ABDOMEN: Obese, soft, nontender and no organomegaly appreciated EXTREMITIES: Trace edema LABS: WBC 6.6, hemoglobin 11.5 g, hematocrit 39.2%, MCV 78 and platelet count 266 BUN 9 creatinine 0.67 TIBC 474, iron saturation 6%, ferritin 15 B12 level 228 IMPRESSION: SNOMED CT(R) 1. Iron deficiency anemia, unspecified iron deficiency anemia type IRON DEFICIENCY ANEMIA 73-year-old Venezuelan-speaking female, history and physical done with the help of interpretation, whohas mild macrocytic anemia with significant iron deficiency, came for follow-up today, patient was supposed to have GI workup but she did not have GI workup because of insurance reason, patient will be seeing Dr. Cotter next week. Patient recent hemoglobin is more than 11 g. I told patient to have extensive GI workup and then I will reassess her in next 6 to 7-week and if she have significant irondeficiency I can arrange intravenous iron infusion etc. in the meantime I told her not to take oraliron and keep an eye on her bowel movement if there is a black stool blood in stool she should contact me, PCP or Dr. Cotter PLAN: Patient will be having GI workup by Dr. Cotter next month I will reassess her in January Ginette Mcginnis MD documented in this encounter Plan of Treatment Not on file documented as of this encounter Procedures Procedure Name Priority Date/Time Associated Diagnosis Comments ..MISCELLANEOUS REFERENCE LAB TEST 12/08/2023 documented in this encounter Results * Miscellaneous reference lab test (12/08/2023) us Provider Onbase MD LAB BLOOD ORDERABLES Final Re sult documented in this encounter Visit Diagnoses Not on filedocumented in this encounter Care Teams Microcomputer Technician Relationship Specialty Start Date End Date Mali Boswell DO PCP - General Internal Medicine 01/14/14 12/27/23 documented as of this encounter
--- OUTSIDE RECORDS SUMMARY | 2024-07-04 09:00 | XMS_ITS ---
Author Organization [facility] Address [address] [place] [address] Care Team Providers Care Hospital Insurance Clerk Name Role Phone CARMINA LASSITER Primary Care Provide r [phone] ANTHONY SWEENEY [phone] REASON FOR VISIT KP/39/pre op Encounters Encounter Location Date Provider Diagnosis [place] [phone] 07/04/2024 ANTHONY SWEENEY Plan Of Treatment Next Appt Details Provider Name:CARMINA MARIO, 07/01/2025 10:00:00 AM, [address] [place], [phone], Progress Notes * RIDDHI WHITTINGTONADOB:[birth year] (74 yo F)Acc No.[id number]:07/04/2024 Progress Notes Patient: DEBBIE ASHLEY Provider: JUN Lobo :1950 A ge:73 Y S ex:Female Date:07/04/2024 [facility] [facility] [id number] Pcp:CARMINA LOPEZ Subjective: * Chief Complaints: * K P/39/pre op * Electronic signature of JUN CARRIZALES on 01/31/2025 at 08:45 AM EST Sign off status: Pending * Provider: JUN Lobo Date: 0 07/04/2024 Generated for Aleah patel/Lion/Reinieritting on: 1 04/03/2024 08:45 AM EST
[2025-01-31 08:43] VITALS: BP 120/56; PULSE 76; O2SAT 93; BMI 25.6
--- NOTE | 2025-01-31 08:43 | A.OFFVIS_ITS ---
Vital Signs 01/31/25 08:43 Height 5 ft 2 in Weight 139 lb 15.896 oz BMI 25.6 BP 120/56 L Blood Pressure Location Lt brachial Position Sitting Pulse 76 Pulse Source Pulse Oximeter Pulse Oximetry (%) 93 Oxygen Delivery Method Room Air Intake Visit Reasons: COPD Police Or Patrol Park Officer Required: Yes Police Or Patrol Park Officer Services: Police Or Patrol Park Officer Offered & Declined Police Or Patrol Park Officer Name: MD speaks turkmen Planimeter Operator: Planimeter Operator offered & declined Accompanied by: Daughter Allergies milk Allergy (Intermediate, Verified 01/31/25 08:46) Hives almond (ALMOND) Allergy (Unknown, Verified 01/31/25 08:46) POSITIVE ALLERGY TEST CLASS 3 coconut (COCONUT) Allergy (Unknown, Verified 01/31/25 08:46) POSITIVE ALLERGY TEST CLASS 3 nickel (NICKEL) Allergy (Unknown, Verified 01/31/25 08:46) POSITIVE ALLERGY TEST peanut (PEANUT) Allergy (Unknown, Verified 01/31/25 08:46) POSITIVE ALLERGY TEST CLASS 3 pecan nut (PECAN) Allergy (Unknown, Verified 01/31/25 08:46) POSITIVE ALLERGY TEST CLASS 2 sesame seed (SESAME SEED) Allergy (Unknown, Verified 01/31/25 08:46) POSITIVE ALLERGY TEST CLASS 3 amoxicillin Allergy (Verified 01/31/25 08:46) Swelling HPI Comments Details: The patient is a 74 year woman with known history of asthma and also tobacco dependency in the past. The patient has significant allergies. She has been following closely with allergy immunology. The patient has significant allergies to foods in addition to environmental allergies. She has been on respiratory therapy. The patient continues to be symptomatic with frequent shortness of breath chest tightness and wheezing. Moderate severity. Recently the patient did have a reaction. She was sent to the hospital for further care. Current the patient has been Wixela. She uses a rescue inhaler on a daily basis. She is feeling well today although she still has wheezing and chest tightness. The patient is a nebulizer. Will start her on nebulized therapy. With a history of glaucoma will can hold off on long-acting muscarinic antagonist until more information is gathered from the compressor engineer. The patient is a former smoker. She quit smoking between 5 to 8 years ago. She is a candidate for the lung cancer screening program. Will go ahead and refer her at this time. 12/29/2022 the patient is here for pulmonary follow-up visit. The patient has been feeling better. She has been using the combination inhaler and also has been using the budesonide. although she has been feeling better he still complains of daily episodes of wheezing and chest tightness. She does use her rescue inhaler on a daily basis for that reason. She did have her pulmonary function studies demonstrating significant small airways disease consistent with severe asthma and also has a mild obstruction also consistent with her uncontrolled asthma. 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 Still has significant asthma phenotype. Her allergy testing was very abnormal with an elevated IgE and significant allergies to both environmental allergens and foods. based on her uncontrolled asthma on maximum respiratory therapy will go ahead and recommend she start Xolair. The patient already has not EpiPen she knows how to use it. Based on her weight and her IgE level will go ahead and start with 300 mg once a month. The patient may need to increase that to every 2 weeks if she continues to solid me about limit talk to now [facility] we talked to the hospitalist because did do the already have the the medical evaluation did up-to-date do like they do like a physical exam in the room limit find outyyg the go at the [employer] the psych consult tearing now cavitary a Cheryl the different got hazy doing got okay fine the brings my heart on history however so I doing psych consult heavy seeing any consult yesterday did did you see anybody yesterday no okay I see the list adjusted he then Gerber Mayes know so intra since so he be somebody that I know he he has he has had some major issues he had a on press but appetite he has had a suicidal attempt pretty significant hormone anyway he has lost weight and he has multiple complaints he goes to hoahaoism with the so weaning him some reason calling was because he wants to make sure that he wants to get better but he has had some health issues and was mainly 3 thinks he has a I think issue with infection in the face where he cut himself that it was infected because he put it like something the cardiac neck so he and then he has not lesion his mouth that he is concerned about and also he has something going on with the either hemorrhoids or something that he is pretty uncomfortable with in addition to the weight loss so short he can help with those things that needs it he is a good needs to gaining some weight he was like almost 200 lb went down to 114 gotten so lost a lot of weight when he can take a look at him and then just let me know I appreciate time guys have too many good to hear can do his years help not good thank you Gerber valenzuela as he gets out cancer screening visit. Her daughter had gotten sick and she could not bring her to the appointment. Will go ahead and reschedule that appointment she can follow-up and get her lung cancer screening done. Will follow-up in 3-4 months to assess her progress on the biologic therapy. 03/31/2023 the patient is here for a pulmonary follow-up visit. She had been doing very well. She did start the Xolair injections and they were very affecting beneficial. Although then the patient had a an allergic reaction where she was developing some angioedema. Her lips have been swollen. Denied any stridor. Although she did go to the ER. She did receive epinephrine at that point. After that was unclear if the Xolair could have been the culprit. Therefore she has been holding the Xolair. Based on her significant reaction I do believe that the Xolair could be potentially exacerbating her allergic reactions. Therefore, best to stop the Xolair. She is completed the prednisone taper. The patient has required multiple prednisone tapers because her significant asthma. The patient has uncontrolled asthma otherwise. She did much better on the Xolair. The patient has an elevated IgE and although her eosinophils are normal she has been on prednisone throughout so therefore difficult to really measure her eosinophils based on her uncontrolled asthma. Therefore, do believe Dupixent would be a better option for her. The patient does benefit from biologic therapy with Dupixent in view of her significant eczema in addition to her severe asthma. In the meantime she is going to continue on the Wixela in the other respiratory medications. 04/27/2023 the patient is here for sick visit. She started developing sore throat. That started developing a cough. The cough has become more congested. She has been also having more shortness of breath with activity. She has been using her nebulizer more often. Therefore she came in today. She did get her blood work including her CBC with differential and IgE level. Again, the patient does have severe persistent asthma due to her allergies and also has a history of eczema. Will try to get her on Dupixent since she had a reaction to Xolair most likely. Therefore, at this point will go ahead and start her on doxycycline. The patient also can start prednisone if no better. She will continue with respiratory treatments. If the patient is no better she will call for further evaluation. I do not believe x-rays needed at this time although if her symptoms do not improve she can always come in for one. 04/27/2023 the patient is here for sick visit. The patient started developing worsening cough chest congestion and a sore throat. Ultimately started developing some wheezing. Symptoms started about a week ago. Denies any fevers or chills or any arthralgias or myalgias. Does not tolerate the fever. No sick contacts in the home. Which still trying to get her on biologic therapy. We have taken off Xolair because of suspicious reaction. In the meantime she does have some rhonchi and wheezing on examination. Will go ahead and send her antibiotics and if she has not better she can start some prednisone as well. She can also use her nebulizer several times a day. The patient should also use a cough expectorate. I am going to go ahead and send the medication to the pharmacy. If the patient is no better she will call the office. In the meantime she is going to have blood work done in order for us to appeal the denial for the Dupixent biologic therapy injection. 11/13/2023 the patient is here for a pulmonary follow-up visit. Overall she is doing well. She is tolerating the Dupixent injection. She has not required any additional prednisone. She feels like her breathing significantly better. Denies any allergic reactions. No significant conjunctivitis. She continues on the Wixela inhaler. Also been helpful. She has not had to use her rescue inhaler. She does not have 1 available and make sure the to send her went to the pharmacy. No recent imaging studies to review. She did have a CT scan of the chest back in 02/01/2023 which was a rads 1. She is going to have another CT scan at that time. The only significant finding was some calcifications of the coronary arteries. Otherwise the patient is doing well she continue with the therapy continue with Dupixent will follow-up in 6 months. If any new issues arise prior to that she will call for an earlier assessment. Also, prior to her leaving we did talk about vaccines. She is reluctant to getting numerous vaccines but she is willing to take the Prevnar 20 today. She got the Prevnar 20 prior to leaving. 05/13/2024 the patient is here for a pulmonary follow-up visit. Overall the patient has been doing fair. She continues to have wheezing on a regular basis. Chest tightness. Moderate severity. She has been using Dupixent now for several months without any significant improvement that she can see. Although I did emphasize the fact that she has not required any prednisone which is by itself in improvement. She does complaint of nasal congestion postnasal drip. Going to the spring she does have most of her allergies and explained to her that slightly that the allergy that was now more significant. At this point will go ahead and maximize respiratory therapy by switching her from Wixela to Trelegy. Can also increase her antihistamines. The patient also can start more aggressive nasal therapies to minimize allergic exposures. She was supposed to have a CT scan the end of January but she was not able to do it. We have to reschedule. I will re-refer her to the lung cancer screening program for scheduled date. In addition to that will have her come back in 3-4 months with PFTs to assess lung capacity. 08/12/2024 the patient is here for a pulmonary follow-up visit. The patient overall has been doing very well from a respiratory status. Did Dupixent has been very affecting beneficial. She continues use her respiratory medications as prescribed. She has not required her rescue therapy as often. Typically less than 2 times a week. She did undergo surgery for hiatal hernia because she was having issues with ongoing symptoms and also anemia. The patient did undergo a blood transfusion recently and also an iron infusion. She is going to undergo a repeat iron infusions soon. She is still recovering from her surgery. Still has a hard time eating she is very nauseous. She is going to undergo a barium swallow tomorrow. Will hold off on the blood work that we had requested. We did review her PFTs demonstrating obstructive airway disease. But otherwise her lungs are well expanded and with normal gas exchange. Now she does have some atelectasis at the bases likely from abdominal bloating and recent abdominal surgery. Therefore, I did provide her an incentive spirometer for her to practice her deep breathing exercises to minimize atelectasis and avoid pneumonia. 01/31/2025 the patient is here for pulmonary follow-up visit. The patient has been doing okay. The Dupixent has been very affecting beneficial. Her asthma has been very well controlled. Although about 2 weeks ago she did get a cold and she started developing a cough. She had been taking [id number] medications with good relief. She states that she is back to her baseline. When she came in her oxygen which is a little low. Around 93%. We did have her go for 6 minute walk test and she actually did good maintaining a pulse ox the lowest of 93%. The highest was 95%. He does have some end inspiratory wheezing on exam which is reasonable for her degree of asthma. Will go ahead and request a chest x-ray. We also did review her pulmonary function studies from June 2024 demonstrating moderate obstruction consistent with COPD. Will go ahead and refer her to the pulmonary rehabilitation at this time. If her x-ray is abnormal additional testing is warranted. She continues with a cough for worsening symptoms she can always call further recommendations. [facility] Medical History (Updated 10/21/24 @ 13:58 by Jaleesa Vincent MD) Familial tremor Bronchitis Aortic valve stenosis Hypertension Hyperlipidemia Asthma-COPD overlap syndrome Asthma Chronic allergic rhinitis Personal history of nicotine dependence GERD (gastroesophageal reflux disease) NITIN (iron deficiency anemia) Thrombocytopenia Vitamin B 12 deficiency Vitamin D deficiency Fatty liver Hiatal hernia Multiple food allergies Osteopenia (~2005) Glaucoma Surgical History History of colonoscopy Family History Sister Breast cancer Father No problems noted. Mother No problems noted. Sister Lung cancer Social History Patient Tobacco Use Status: Former Tobacco user Tobacco use type: Cigarette Cigarette Packs Per Day: 1.25 Years Smoked: 30 Review of Systems Const Denies fever(s) Eyes Denies change in vision ENT Reports as per HPI, Reports dysphagia, Reports nasal congestion and Denies sore throat Card Denies chest pain and Reports dyspnea on exertion Resp Denies change in phlegm color, Reports chest congestion, Reports cough, Reports dyspnea on exertion and Reports wheezing GI Reports as per HPI, Reports abdominal pain, Reports belching, Reports bloating, Reports GI cramping and Reports dysphagia Musc Reports no additional complaints Skin/Breast Denies rash Neuro Reports no additional complaints Endo Denies flushing Daniel/Lymph Denies lymphadenopathy Aller/Immun Reports wheezing Physical Exam Vital Signs: Last Vital Signs Pulse 76 01/31/25 08:43 BP 120/56 L 01/31/25 08:43 Pulse Ox 93 01/31/25 08:43 Oxygen Delivery Method Room Air 01/31/25 08:43 BMI result Body Mass Index 25.6 Const General: comfortable HEENT Head: Yes normocephalic Neck Neck: Yes supple Chest Chest palpation & inspection: normal inspection of the chest Resp Effort & Inspection: normal respiratory effort Auscultation: no rhonchi, no wheezes and diminished lung sounds Cardio Rate: regular rate Rhythm: regular rhythm Heart sounds: S1 normal heart sound present and S2 normal heart sound present GI Palpation (GI): Tenderness to palpation present (GI) Skin General skin exam: no rashes or lesions noted Extrem General: Yes no clubbing, cyanosis or edema Assessment & Plan Assessment & Plan (1) Asthma: Code(s): J45.909 - Unspecified asthma, uncomplicated Category: Medical Qualifiers: Asthma complication type: uncomplicated Asthma persistence: persistent Asthma severity: severe Qualified Code(s): J45.50 - Severe persistent asthma, uncomplicated (2) Chronic allergic rhinitis: Code(s): J30.9 - Allergic rhinitis, unspecified Category: Medical (3) Asthma-COPD overlap syndrome: Code(s): J44.9 - Chronic obstructive pulmonary disease, unspecified Category: Medical (4) Hiatal hernia: Comment: s/p surgical correction Code(s): K44.9 - Diaphragmatic hernia without obstruction or gangrene Category: Medical Plan Trelegy, monitor for visual changes YOGESH as needed Epi pen continue Dupixent 300mg [id number] continue Xopenex as needed zyrtec LDCT CXR start pulmonary rehab F/U 6 months Orders: Orders Pulmonary Rehab 01/31/25 J44.9 - Chronic obstructive pulmonary disease, unspecified XR chest 2V 01/31/25 J44.9 - Chronic obstructive pulmonary disease, unspecified, J45.50 - Severe persistent asthma, uncomplicated Coding Level of Care Code Est Pt Level 4 (10675) Diagnoses Severe persistent asthma without complication J45.50 Asthma complication type: uncomplicated Asthma persistence: persistent Asthma severity: severe Chronic allergic rhinitis J30.9 Asthma-COPD overlap syndrome J44.9 Hiatal hernia K44.9 Time Spent (min) 17
--- OUTSIDE RECORDS SUMMARY | 2025-01-31 08:45 | XMS_ITS ---
Author Name Marshall Obrien APRN Address [address] [place] [address] Phone [phone] [facility] [employer] [facility] [employer] [facility] Care Team Providers Care Traveling Construction Superintendent Name Role Phone Wendy Obrien Unavailable [phone] [facility] Unavailable [phone] [facility] Unavailable Unavailable Unavailable [phone] Reason for Referral Not Available Allergies, adverse [...]
--- OUTSIDE RECORDS SUMMARY | 2025-01-31 08:46 | XMS_ITS | Clinical Summary ---
Author Organization [facility] Prior to 07/13/24 Address [address] [place] [address] Care Team Providers Care Body Shop Manager Name Role Phone Mali Menendez DO Primary Care P rovider Allergies Active Allergy Reactions Criticality Noted Date Comments [place] 10/02/2019 Blue Dyes (Parenteral) 04/07/2023 Chocolate 10/02/2019 Milk 04/07/2023 Nickel 04/07/2023 [place] 04/07/2023 Peanuts 10/02/2019 Pear 04/07/2023 Wheat 04/07/2023 [...] Depression Screening 1960 Preventative Health Evaluation 1966 Shingrix-Zoster Vaccine (1 o f 2) 1998 [...] age to complete this topic Care Teams Body Shop Manager Relationship Specialty Start Date End Date Mali Menendez DO PCP - General Analog Ic Design Engineer 10/02/19
--- OUTSIDE RECORDS SUMMARY | 2025-01-31 08:46 | XMS_ITS | Clinical Summary ---
Author Organization [facility] Address [address] [place] [address] Phone Care Team Providers Care Software Development Engineer Name Role Phone NestorSara Mali Primary Care [...] 4 Microscopic hematuria 01/20/2014 Overview (12/19/2023): Seen urology 12/25/12 Normal cysto/ f/u 1 yr [facility] transfer note) Resolved Problems Problem Noted Date Diagnosed Date Resolved Date Incarcerated paraesophageal hernia 07/01/2024 07/17/2024 Alex ulcer 07/01/2024 07/17/2024 Immunizations Immunization Administration Dates Next Due Influenza trivalent, 0.5mL, [...] adenomas 2. UPPER GASTROINTESTINAL ENDOSCOPY 08/09/2016 PROCEDURE: GA UPPER GI ENDOSCOPY PERFORMED; COMMENT: Duodenal biopsies normal. Large hiatal hernia, 4 cm. No bleeding lesions in the hernia. FOOT SURGERY 1960 Left PROCEDURE: HISTORICAL FOOT SURGERY; COMMENT: L foot fx PARAESOPHAGEAL HERNIA REPAIR 07/16/2024 N/A Medical History Medical History Date Comments Osteoarthritis, hand DX:Osteoart hritis, hand COPD (chronic obstructive pu lmonary disease) ([facility] V24, [facility] V28) 09/22/2016 DX:COPD (chronic o bstructive pulmonary disease) ([facility]) History of tobacco abuse DX:Hist ory of tobacco abuse HTN (hypertension) DX:HTN (hyper tension) Postmenopausal DX:Postmenopausa l Hyperlipidemia 01/20/2014 DX:Hyperlipidemi a Microscopic hematuria 01/20/2014 DX:Microsc opic hematuria; COMMENT: Seen bu urology 12/25/12 Normal cysto/ f/u 1 yr [facility] 9transfer note) GERD (gastroesophageal reflux disease) [...] of transfusion Depression Hiatal hernia Ulcerative colitis ([facility] V24, [facility] V28) GI (gastrointestinal bleed) ulce rs in [...] Health Maintenance Due Date Last Done Comments Drug Screen 1950 Non-Opioid Controlled Substance Agreement 1950 COVID-19 Vaccine (#1) 1953 Zoster Vaccines (1 [...] this topic Medical Devices Implanted Type Area News Assistant Device Identifier Shelf Expiration Date Model / Serial / Lot Sealant Fibrin Vistaseal 10ml - [id number] - [id number] Implanted:Qty: 1 on 07/16/2024 by Lucia Padgett MD at [facility] Hemostasis N/A: Esophagus [employer] 01/10/2026 [id number] / [id number] / [id number] Graft Mesh Enform Biomaterial Lp 8x16cm - [id number] - [id number] Implanted:Qty: 1 on 07/16/2024 by Lucia Padgett MD at [facility] Surgical Mesh Sling Implants N/A: Esophagus [employer] 06/11/2026 [id number] / [id number] / N/A Procedures Procedure Name Priority Date/Time Associated Diagnosis Comments BASIC METABOLIC PANEL Routine 07/17/2024 5:55 AM [...] Relevant to Health Maintenance Results * (ABNORMAL) Basic metabolic panel (07/17/2024 5:55 AM EDT) Sodium 141 133 - 145 mmol/L LAB CHEMISTRY METHOD 07/17/2024 7:29 AM [facility] Potassium 3.5 3.5 - 5.5 mmol/L LAB CHEMISTRY METHOD 07/17/2024 7:29 AM [facility] Chloride 108 96 - 110 mmol/L LAB CHEMISTRY METHOD 07/17/2024 7:29 AM [facility] CO2 26 21 - 32 mmol/L LAB CHEMISTRY METHOD 07/17/2024 7:29 AM [facility] Anion Gap 7 3 - 11 LAB CHEMISTRY METHOD 07/17/2024 7:29 AM [facility] Glucose 119(H) 70 - 100 mg/dL LAB CHEMISTRY METHOD 07/17/2024 7:29 AM [facility] BUN 11 5 - 25 mg/dL LAB CHEMISTRY METHOD 07/17/2024 7:29 AM [facility] Creatinine 0.67 0.50 - 1.10 mg/dL LAB CHEMISTRY METHOD 07/17/2024 7:29 AM [facility] eGFR 91 >=60 mL/min/1. 73m2 LAB CHEMISTRY METHOD 07/17/2024 7:29 AM [facility] Comment:Calculation based on the Chronic Kidney Disease Epidemiology Collaboration (CKD-EPI) equation refit without adjustment for race. BUN/Creatinine Ratio 16.4 LAB CHEMISTRY METHOD 07/17/2024 7:29 AM [facility] Calcium 9.0 8.5 - 10.5 mg/dL LAB CHEMISTRY METHOD 07/17/2024 7:29 AM [facility] Blood Venous blood specimen / Unknown Venipuncture / Unknown 07/17/2024 5:55 AM EDT 07/17/2024 6:41 AM EDT us Severo BARAHONA LAB BLOOD ORDERABLES Fin al Result [facility] [address] [place] [address], [place] [phone] * MG Mammo Digital Screening w Brady bilat (05/04/2024 8:54 AM EDT) Anatomical Region Laterality Modality Breast Bilateral Mammography 05/06/2024 11:4 3 AM EDT Impressions 05/06/2024 12:23 PM EDT Benign. BI-RADS CATEGORY: 1 - NEGATIVE RECOMMENDATION: Screening bilateral mammogram is recommended in 1 year. Mammo Location: [facility], [address] [place] [address], [id number], . -------- FINAL REPORT -------- Dictated By: María Reece Dictated Date: 05/06/2024 11:43 ET Assigned Physician: María Reece Reviewed and Electronically Signed By: María Reece Signed Date: 05/06/2024 12:23 ET Workstation ID: [id number] Transcribed By: Self Edit Transcribed Date: 05/06/2024 [...] is recommended in 1 year. Mammo Location: [facility], [address] [place] [address], [id number], . -------- FINAL REPORT -------- Dictated By: María Reece Dictated Date: 05/06/2024 11:43 ET Assigned Physician: María Reece Reviewed and Electronically Signed By: María Reece Signed Date: 05/06/2024 12:23 ET Workstation ID: [id number] Transcribed By: Self Edit Transcribed Date: 05/06/2024 11:43 ET [place] Boswell DO [facility] BI PROCEDURES Final Result * COLONOSCOPY Anesthesia - MAC; [facility] ENDOSCOPY (01/18/2024 10:37 AM EST) Anatomical Region [...] or older). Narrative 01/18/2024 10:44 AM EST [facility] GI Patient Name: Debbie Whittington Procedure Date: [...] verified by the physician, the nurse, the air quality manager and the lidar technician in the pre-procedure area in the [...] not prolapse). Procedure Code(s): --- Professional --- 22817, Colonoscopy, flexible; with removal of tumor(s), polyp(s), or other lesion(s) by snare technique Diagnosis Code(s): --- Professional --- D12.3, Benign neoplasm of transverse colon (hepatic flexure or splenic flexure) CPT copyright 2020 [employer]. All rights reserved. The codes documented in this report are preliminary and upon body presser review may be revised to meet current compliance requirements. Wilfredo Cotter MD 01/18/2024 10:44:03 AM This report has been signed electronically.Wilfredo Cotter MD Number of Addenda: 0 Note Initiated On: 01/18/2024 10:09 AM Scope Withdrawal Time: 0 hours 6 minutes 40 seconds Scope In: 10:17:17 AM Scope Out: 10:28:24 AM Endoscopy Department at [facility] - [address] [place] [phone] Procedure Note Wilfredo Cotter MD - 01/18/2024 [facility] GI Patient Name: Debbie Whittington Procedure Date: [...] the physician, the nurse, theanesthetist and the lidar technician in the pre-procedure area in the [...] not prolapse). Procedure Code(s): --- Professional --- 48702, Colonoscopy, flexible; with removal of tumor(s), polyp(s), or other lesion(s) by snare technique Diagnosis Code(s): --- Professional --- D12.3, Benign neoplasm of transverse colon (hepatic flexure or splenic flexure) CPT copyright 2020 [employer]. All rights reserved. The codes documented in this report are preliminary and upon body presser reviewmay be revised to meet current compliance requirements. Wilfredo Cotter MD 01/18/2024 10:44:03 AM This report has been signed electronically.Wilfredo Cotter MD Number of Addenda: 0 Note Initiated On: 01/18/2024 10:09 AM Scope Withdrawal Time: 0 hours 6 minutes 40 seconds Scope In: 10:17:17 AM Scope Out: 10:28:24 AM Endoscopy Department at [facility] - [address] [place] [phone] IMPRESSION: - One diminutive polyp in the transverse colon, removed with a cold snare. Resected andretrieved. - Diverticulosis in the sigmoid colon. - Internal hemorrhoids. Recommendation: - Await pathology results. - No repeat colonoscopy due to current age (66years or older). Wilfredo Ctoter MD GI~PROCEDURE ORDERABLES Fin al Result * (ABNORMAL) Lipid panel (05/21/2020) LDL/HDL Ratio 2 0 - 4 Triglycerides 155(A) 0 - 150 mg/dL Cholesterol 192 0 - 200 mg/dL HDL 84 >=40 mg/dL LDL Cholesterol 77 0 - 100 mg/dL Blood Venous blood specimen / Unknown [facility] Provider LAB BLOOD ORDERABLES Lu l Result * DXA BONE DENSITY STUDY 1+ SITS AXIAL SKEL (04/01/2020 10:40 AM EST) Anatomical Region Laterality Modality Bone Densitometr y 12/09/2019 3:37 PM EDT Narrative 04/01/2020 4:43 PM EST Clinical history: other osteoporosis Scans of the lumbar spine and hips were performed on a [employer] fan beam bone densitometer. Bone mineral density [...] spine and hips were performed on a [employer] beam bone densitometer. Bone mineral density measurements [...] Final Result * Hepatitis C Screening (04/01/2014) Hepatitis C Screening Abstracted Historical Provider HEALTH MAINTENANCE Final Result from Last 3 Months or Most Recently Relevant to Health Maintenance Insurance [place] Member Subscriber Plan / Payer (Ef fective 2024-Present) Name:DEBBIE WHITTINGTON Relation to Subscriber:Self Name:Debbie Whittington Payer ID:[id number] Group ID:Not on file Type:Not on file Address: [facility] [employer] ATTN:[employer] [address] [place] [address] [employer] MEDICARE Advance Directives * Full [...] currently active code status orders. Care Teams Software Development Engineer Relationship Specialty Start Date End Date Mali Boswell DO [facility] [address] [place] [phone] PCP - General Internal Medicine 01/15/24
--- OUTSIDE RECORDS SUMMARY | 2025-01-31 08:46 | XMS_ITS | Patient Health Record ---
Author Organization [facility] [employer] Address [address] [place] [address] Care Team Providers Care Flower Cutter Name Role Phone CARMINA LASSITER Primary Care Provide r [phone] DANDRE MEEK Unavailable [phone] ANTHONY SWEENEY Unavailable [phone] Allergies Allergen (clinical drug ingredient) Drug/Non Drug Allergy documented on EMR Reaction Allergy Type Onset Date Status Kinney peach (uncoded) anaphylaxis Allergy Ac tive Peanut peanut (uncoded) anaphylaxis Allergy A ctive Pear pear (uncoded) anaphylaxis Allergy Act dinh Wheat wheat (uncoded) rash Allergy Acti ve amoxicillin Amoxicillin Unknown Drug Allergy Act dinh apple allergenic extract Apple (Diagnostic) anaphylaxis Drug Allergy Active banana allergenic extract Banana (Diagnostic) anaphylaxis Drug Allergy Active Chocolate Flavor rash Drug Allergy Active Milk-related Compounds rash Drug Allergy Active nickel Nickel rash Allergy Active Tree Nuts anaphylaxis Allergy Active coconut allergenic extract Coconut (Diagnostic) anaphylaxis Drug Allergy Active Reason For Referral Reason (faxed 10/03/24) eval of worsening tremor of b/l upper ext. Diagnosis 1 Tremor of both hands (R25.1) Referral Organization [facility] Referring Provider First Name CARMINA Referring Provider Last Name PATITO DELONG Referring Provider Speciality Internal M edicine Referred Provider RADHA PEDERSEN Referred Provider Specialty Neurology General Notes Navya CHENG MA 09/14 02:06:13 PM > faxed referral to Dr Pedersen's office, f: [phone] Clinical Notes CARMINA LASSITER 12/30/2024 05:32:31 AM >pt seen changed to addressed Referral Priority Routine Reason ent assoc for eval Diagnosis 1 Hearing loss, unspec ified hearing loss type, unspecified laterality (H91.90) [facility] Referring Provider First Name CARMINA Referring Provider Last Name PHANJOSHGENEVIEVEJOHN PAINTINGASPEN Referring Provider Speciality Internal edicine [facility]erred Provider Specialty Otology, Lar yngology, Rhinology General Notes Navya CHENG MA 12/15 11:35:31 AM > faxed to [facility] , f: [phone] Referral Priority Routine Reason (faxed 01/04/25) [facility] for eval. Diagnosis 1 Arthralgia of multip le joints (M25.50) Referral [facility] Referring Provider First Name CARMINA Referring Provider Last Name PATITO DELONG Referring Provider Speciality Internal edicine Referred Organization [facility] Referred Address LUAN Kirby, Referred Provider Specialty Rheumatology General Notes Navya CHENG MA 12/15 11:37:09 AM > faxed to [facility], f: [phone] Referral Priority Routine Medications Medication SIG (Take, Route, Frequency, Duration) Notes Start Date End Date Status Triamcinolone Acetonide 0.1 % Paste as directed Active Montelukast Sodium 10 MG Tablet TAKE 1 TABLET BY MOUTH EVERY DAY; Duration: 90 days Active ProAir HFA 108 (90 Base) MCG/ACT Aerosol Solution 1 puff as needed Inhalation every 4 hrs prn cough/wheeze/sob Active KETOTIFEN 0.25 MG CAPSULE prn Active PARoxetine HCl 40 MG Tablet TAKE 1 TABLET BY MOUTH EVERY DAY IN THE MORNING FOR 90 DAYS; Duration: 90 days Active Budesonide 0.5 MG/2ML Suspension 1 mL Inhalation Twice a day Active Cetirizine HCl 10 MG Tablet 1 tab(s) orally once a day Active Albuterol Sulfate (5 MG/ML) 0.5% Nebulization Solution 0.5 mL by nebulizer every 4 hours prn cough/wheezing/sob Active Atorvastatin Calcium 40 MG Tablet TAKE 1 TABLET BY MOUTH EVERY DAY Active Omeprazole 40 MG Capsule Delayed Release TAKE 1 CAPSULE BY MOUTH EVERY DAY Active amLODIPine Besylate 10 MG Tablet TAKE 1 TABLET BY MOUTH EVERY DAY; Duration: 90 days Active Underpads - Miscellaneous as directed qid prn N39.46 Active ALPRAZolam 0.5 MG Tablet TAKE 1 TABLET BY MOUTH EVERY DAY NEEDED FOR ANXIETY 04/14/2023 Active Albuterol Sulfate HFA 108 (90 Base) MCG/ACT Aerosol Solution INHALE 1 PUFF INTO THE LUNGS EVERY 4 HOURS NEEDED Active Dupixent 100 MG/0.67ML Solution Prefilled Syringe 150mg Subcutaneous every 14 days 11/10/2023 Active EpiPen 2-Harvey 0.3 MG/0.3ML Solution Auto-injector as directed Injection prn anaphylaxis Active Disposable Bed Linens M39.46, bi d prn Disp #180/90 days 12/06/2022 Active Poise Pad - Pad as directed qid prn incontinence N39.46 Active Disposable Gloves - Miscellaneous as directed qis prn M39.46 12/06/2022 Active Tylenol 325 MG Tablet 2 tab(s) orally Q6 H prn pain Active Clobetasol Propionate 0.05 % Cream 1 mindy applied topically 2 times a day Active Otezla 30 MG Tablet 1 tablet Orally Twic e a day Active Calcipotriene 0.005 % Ointment 1 mindy applied topically once a day Active Social History Tobacco Use: Social History Observation Description Date Details (start date - stop date) Former Smoker NA - NA Social History Tobacco Use: Social Info Question Answer Notes Smoking Are you a: former smoker Additional Details Category Social Info Options Details General asbestos exposure: no Past year's travels: none 2020, alcohol use: yes on weekend drug use: no Hobbies/Exercise habits: Walking Coffee/Tea/Soda: yes Coffee, 1 Marital Status experience no smokers in household yes Problems Problem Type SNOMED Code ICD Code Onset Dates Problem Status W/U Status Risk Notes Problem Vitamin D deficiency (52248814) Vitamin D deficiency (E55.9) Active confirmed Problem Hiatal hernia (62216631) Hiatal hernia (K44.9) Active confirmed large hiatal hernia on egd 01/2024 Problem Grief (932689108) Grief (F43.21) Active confirm ed Problem Thrombocytopenia (994523624) Thrombocytopenia (D69.6) Active confirmed Problem Eruption of skin (510094142) Rash and nonspecific skin eruption (R21) Active confirmed Problem Acute exacerbation of chronic obstructive airways disease (312685796) COPD exacerbation (J44.1) Active confirmed Problem Psoriasis vulgaris (365268537) Psoriasis vulgaris (L40.0) Active confirmed Problem Mixed incontinence (188081718) Mixed incontinence (N39.46) Active confirmed Problem Anxiety (60784190) Anxiety (F41.9) Active confi rmed Problem COPD - Chronic obstructive pulmonary disease (81397713) Chronic obstructive pulmonary disease, unspecified COPD type (J44.9) Active confirmed Problem Cyst of uterine adnexa (06847569748922) Adnexal cyst (N94.9) Active confirmed 4.6 cm 04/2023, rpt scan in 6 mo recommended Problem Ex-tobacco user (finding) (870989417) History of tobacco use (Z87.891) Active confirmed Problem Laboratory test result abnormal (363626841) Abnormal laboratory test (R89.9) Active confirmed Problem History of iron deficiency anemia (938880624) History of iron deficiency anemia (Z86.2) Active confirmed Problem Aortic valve sclerosis (17086876) Aortic valve sclerosis (I35.8) Active confirmed Problem History of anemia (515364056) History of anemia (Z86.2) Active confirmed Problem Chronic urticaria (40780042) Chronic urticaria (L50.8) Active confirmed Problem Iron deficiency anemia (25023898) Iron deficiency anemia, unspecified iron deficiency anemia type (D50.9) Active confirmed Problem Primary hypertension (62262296) Primary hypertension (I10) Active confirmed Problem History of nutritional deficiency (99630186072610) History of vitamin D deficiency (Z86.39) Active confirmed Problem High cholesterol (90271663) High cholesterol (E78.00) Active confirmed Problem Hearing loss (68742136) Hearing loss, unspecified hearing loss type, unspecified laterality (H91.90) Active confirmed Problem Age-related osteoporosis (961389383) Osteoporosis without current pathological fracture, unspecified osteoporosis type (M81.0) Active confirmed Problem Aortic valve disorder (1837759) Aortic valve stenosis, etiology of cardiac valve disease unspecified (I35.0) Active confirmed Problem Uncomplicated moderate persistent asthma (511516841) Moderate persistent asthma, unspecified whether complicated (J45.40) Active confirmed Problem Atherosclerotic heart disease of [place] coronary artery without angina pectoris (587440857194700) Coronary artery calcification seen on CT scan (I25.10) Active confirmed moderate Problem Gastroesophageal reflux disease (865158731) Gastroesophageal reflux disease, unspecified whether esophagitis present (K21.9) Active confirmed Problem Mixed anxiety and depressive disorder (047493651) Depression with anxiety (F41.8) Active confirmed Problem Mild intermittent asthma (756214418) Intermittent asthma without complication, unspecified asthma severity (J45.20) Active confirmed Problem Primary osteoarthritis (445399368) Primary osteoarthritis involving multiple joints (M15.9) Active confirmed Problem Gastric ulcer without hemorrhage, without perforation AND without obstruction (71798527) Alex ulcer, unspecified ulcer chronicity (K25.9) Active confirmed egd 01/2024; Vital Signs Blood pressure diastolic 72 mm Hg 12/30/2024 Height 64 in 12/30/2024 Blood pressure systolic 128 mm Hg 12/30/2024 Weight 143 lbs 12/30/2024 BMI 24.54 kg/m2 12/30/2024 Encounters Encounter Location Date Provider Diagnosis [facility] [address] [place] [address] 06/14/2024 CARMINA AYOUBACCO Hiatal hernia K44.9 ; Depression with anxiety F41.8 ; Alex ulcer, unspecified ulcer chronicity K25.9 ; Adnexal cyst N94.9 ; Iron deficiency anemia, unspecified iron deficiency anemia type D50.9 ; Coronary artery calcification seen on CT scan I25.10 ; Anxiety F41.9 ; Chronic obstructive pulmonary disease, unspecified COPD type J44.9 ; High cholesterol E78.00 ; Aortic valve stenosis, etiology of cardiac valve disease unspecified I35.0 ; B12 deficiency E53.8 ; Psoriasis vulgaris L40.0 ; Vitamin D deficiency E55.9 ; Osteoporosis without current pathological fracture, unspecified osteoporosis type M81.0 ; Encounter for screening mammogram for malignant neoplasm of breast Z12.31 ; Tremor R25.1 and Heartburn R12 [facility] [address] [place] [address] 07/05/2024 DANDRE MEEK Preoperative clearance Z01.818 ; Chronic urticaria L50.8 ; Primary osteoarthritis involving multiple joints M15.9 ; Psoriasis vulgaris L40.0 ; High cholesterol E78.00 ; Mixed incontinence N39.46 ; COPD with asthma J44.89 ; Heartburn R12 and Primary hypertension I10 [place] [id number] 12/30/2024 CARMINA PHANKOWIAKCOLASACCO Other specified postprocedural states Z98.890 ; Personal history of other diseases of the digestive system Z87.19 ; Alex ulcer, unspecified ulcer chronicity K25.9 ; Depression with anxiety F41.8 ; Adnexal cyst N94.9 ; Iron deficiency anemia, unspecified iron deficiency anemia type D50.9 ; High cholesterol E78.00 ; Primary hypertension I10 ; Psoriasis vulgaris L40.0 ; Aortic valve sclerosis I35.8 ; B12 deficiency E53.8 ; Hearing loss, unspecified hearing loss type, unspecified laterality H91.90 ; Encounter for screening mammogram for malignant neoplasm of breast Z12.31 and Arthralgia of multiple joints M25.50 [place] [address] 05/10/2024 CARMINA PHANKOWIAKCOLASACCO [place] [address] 06/27/2024 CARMINA MAGUIRECOLASACCO Hypokalemia E87.6 [place] [address] 07/02/2024 CARMINA HANKINSAKCOLASACCO [place] [address] 07/05/2024 CARMINA PHANKOWIAKCOLASACCO Assessments Encounter Date Diagnosis (ICD Code) Assessment Notes Treatment Notes Treatment Clinical Notes Section Notes 12/30/2024 Other specified postprocedural states (ICD-10 - Z98.890) s/p Paraesophageal hernia repair will follow-up annually with thoracic surgery as directed. 06/27/2024 Hypokalemia (ICD-10 - E87.6) 06/14/2024 Hiatal hernia (ICD-10 - K44.9) gi at [place] orderd esophageal mnometry and capsule study and placed referral to surgery, Dr. Blair to discuss fixing the large hiatal hernia 06/14/2024 Depression with anxiety (ICD-10 - F41.8) Finds medication regimen to be helpful and will continue at current dosing. 12/30/2024 Personal history of other diseases of the digestive system (ICD-10 - Z87.19) as above 07/05/2024 Preoperative clearance (ICD-10 - Z01.818) According to this exam patient is at average risk for this average risk surgery given age and comorbidities. No apparent contraindications to surgery. According to AHA/ACC guidelines no further cardiac testing is necessary for risk stratification. Pt to have pulmonary clearance prior to surgery.Patient will avoid ASA/NSAIDs x 7-10 days prior to surgery. This exam is valid for 30 days 07/05/2024 Chronic urticaria (ICD-10 - L50.8) 07/05/2024 Primary osteoarthritis involving multiple joints (ICD-10 - M15.9) 12/30/2024 Alex ulcer, unspecified ulcer chronicity (ICD-10 - K25.9) see hpi, per gi fu can be prn and doesnt need repeat egd etc unless has new concerns 06/14/2024 Alex ulcer, unspecified ulcer chronicity (ICD-10 - K25.9) Associated with large hiatal hernia. Had additional testing and referral to surgery to discuss treatment of this. 06/14/2024 Adnexal cyst (ICD-10 - N94.9) ref to manager quality and appointent is scheduled as per hpi appt is pending 12/30/2024 Depression with anxiety (ICD-10 - F41.8) Feels mood is good on current regimen. Has a good support system. Denies any SI/HI 07/05/2024 Psoriasis vulgaris (ICD-10 - L40.0) 07/05/2024 High cholesterol (ICD-10 - E78.00) 12/30/2024 Adnexal cyst (ICD-10 - N94.9) needs to call and reschedule w/ manager quality at [facility] number given 06/14/2024 Iron deficiency anemia, unspecified iron deficiency anemia type (ICD-10 - D50.9) was referred to GI at [place] had EGD and colonoscopy January 2024. Large hiatal hernia with multiple Alex ulcers. Erosive gastropathy but no evidence of active or current bleeding at that time. capsule study and manometry were planned Has follow-up and treatment with heme-onc at [place] as well. Dr Nails. Has not received B12 injections or iron infusions since she was evaluated with him in November 2023. Does complain of significant fatigue. 06/14/2024 Coronary artery calcification seen on CT scan (ICD-10 - I25.10) Has annual follow-up with cardiology. Denies any decreased exercise tolerance, chest pain, shortness of breath etc. 12/30/2024 Iron deficiency anemia, unspecified iron deficiency anemia type (ICD-10 - D50.9) has been seeing dr nails at [place]. fu prn last iv iron infusion summer 2024 have ordered add'l labs and iron studies 07/05/2024 Mixed incontinence (ICD-10 - N39.46) 07/05/2024 COPD with asthma (ICD-10 - J44.89) 12/30/2024 High cholesterol (ICD-10 - E78.00) cont statin and heart healthy diet and will ck fasting lipids 06/14/2024 Anxiety (ICD-10 - F41.9) Gets occasional benzodiazepine particularly for travel and her doctors visits and finds this to be helpful. 06/14/2024 Chronic obstructive pulmonary disease, unspecified COPD type (ICD-10 - J44.9) Pulmonary medicine recently stopped Wixela and started Trelegy. Repeat PFTs and follow-up were scheduled 12/30/2024 Primary hypertension (ICD-10 - I10) cont current med regimen 07/05/2024 Heartburn (ICD-10 - R12) 07/05/2024 Primary hypertension (ICD-10 - I10) 12/30/2024 Psoriasis vulgaris (ICD-10 - L40.0) see hpi Continue follow-up and treatment with dermatology as planned 06/14/2024 High cholesterol (ICD-10 - E78.00) Taking tolerating statin therapy well and will continue. 06/14/2024 Aortic valve stenosis, etiology of cardiac valve disease unspecified (ICD-10 - I35.0) She will continue surveillance and follow-up with cardiology as planned 12/30/2024 Aortic valve sclerosis (ICD-10 - I35.8) Per cardiology notes no evidence of stenosis on the aortic valve sclerosis. Will need occasional imaging with echo as follow-up with cardiology is going to be as needed only 06/14/2024 B12 deficiency (ICD-10 - E53.8) Will check B12 levels with labs. Suspect this will be quite low given that she has not had any treatment as above. 12/30/2024 B12 deficiency (ICD-10 - E53.8) Continue supplements will monitor vitamin B12 levels daily. 06/14/2024 Psoriasis vulgaris (ICD-10 - L40.0) Continue follow-up and treatment with dermatology has worked quite well for her. 12/30/2024 Hearing loss, unspecified hearing loss type, unspecified laterality (ICD-10 - H91.90) Had seen ENT several years ago and have placed a referral for evaluation of hearing per her request. 12/30/2024 Encounter for screening mammogram for malignant neoplasm of breast (ICD-10 - Z12.31) Order slip for mammogram provide 06/14/2024 Osteoporosis without current pathological fracture, unspecified osteoporosis type (ICD-10 - M81.0) Is due for a bone density scan which has been ordered. 12/30/2024 Arthralgia of multiple joints (ICD-10 - M25.50) needs new ref to [place] [facility] had been ref in past but wasnt able to make appt 06/14/2024 Vitamin D deficiency (ICD-10 - E55.9) Continue supplements. 06/14/2024 Encounter for screening mammogram for malignant neoplasm of breast (ICD-10 - Z12.31) had mammo [facility] 05/07 Request report. 06/14/2024 Tremor (ICD-10 - R25.1) was ref to neuro and apt pending for oct 2024 06/14/2024 Heartburn (ICD-10 - R12) Continue PPI particular given her other GI issues. refill snt 12/30/2024 Other 65-minute visit with more than 55 minutes in abqq-la-skau encounter reviewing her chronic medical issues, her hospital course, clinical sales consultant visit, imaging studies, plan. Plan Of Treatment Pending Test Test Name Order Date ANCA Screen with MPO and PR3, with Refle x to ANCA Titer(QUEST) 11/02/2021 Bone Density 2 site DEXA 06/14/2024 HEPATIC FUNCTION PANEL 10/12/2020 ANCA SCREEN WITH MPO AND PR3 WITH REFLEX TO ANCA TITER (10351) 11/02/2021 Future Test Test Name Order Date LIPID PROFILE 04/21/2021 FOLATE 04/21/2021 FERRITIN 04/21/2021 CBC W/ AUTOMATED DIFF 04/21/2021 BASIC METABOLIC PANEL 04/21/2021 Iron and TIBC 04/21/2021 TONY IFA SCREEN W/REFL TO TITER AND PATTE RN, IFA(QUEST) 11/02/2021 LIPID PROFILE 02/18/2022 VITAMIN B12 02/18/2022 FOLATE 02/18/2022 FERRITIN 02/18/2022 TSH 02/18/2022 CBC W/ AUTOMATED DIFF 02/18/2022 HEPATIC FUNCTION PANEL 02/18/2022 BASIC METABOLIC PANEL 02/18/2022 Iron and TIBC 02/18/2022 25 OH Vitamin D 02/18/2022 CBC (COMPLETE BLOOD COUNT) WITH DIFF 04/2022 BASIC METABOLIC PANEL (79272) 07/04/2024 Mammogram Screening Bilatera l, Perform ultrasound guided aspiration and/or breast biopsy if warranted 02/17/2025 Next Appt Details Provider Name:CARMINA ALLAN SHELBI, 07/01/2025 10:00:00 AM, [address] [place], [address], Insurance Providers Payer Name Payer Address Payer Phone Subscriber Number Group Number Insured Name Patient Relationship to Insured Coverage Start Date Coverage End Date [facility] [employer] [address] [address] [place] [address] [id number] [facility] Self - patient is the insured Medical (General) History Medical History History ICD Code allergies anemia asthma arthritis high cholesterol fibromyalgia HTN COPD osteoarthritis osteoporosis psoriasis rheumatoid arthritis colonoscopy and endoscopy Surgical History Surgery Date(Month/Year) esophageal Hernia Repair Surgery 2024 Hospitalization History Reason Date(Month/Year) see above 2024 [facility] : asthma attack via ambulance from Nataliya Morgan's office 09/13/22
== END 2025-01-31 09:18 | disposition home or self-care (01) ==
LOC: HO.HPS 08:33
PROVIDERS: PCP Internal Medicine; Visit Provider Hospitalist
DX: J45.50 Severe persistent asthma, uncomplicated (principal); J30.9 Allergic rhinitis, unspecified; J44.9 Chronic obstructive pulmonary disease, unspecified; K44.9 Diaphragmatic hernia without obstruction or gangrene
CPT/HCPCS: 99214

== ENCOUNTER → 2025-01-31 08:33 | Outpatient (BNVA) | payer OTHER, SELFPAY | PROVIDERS: PCP Internal Medicine; Visit Provider Hospitalist | DX: J45.50 Severe persistent asthma, uncomplicated (principal); Z87.891 Personal history of nicotine dependence; J30.5 Allergic rhinitis due to food; J30.2 Other seasonal allergic rhinitis; J44.9 Chronic obstructive pulmonary disease, unspecified; J82.83 Eosinophilic asthma | CPT/HCPCS: 99212 ==